=== PATIENT | male | born 1975 | race Caucasian/White ===

== ENCOUNTER 2019-07-21 18:16 | Emergency (ER) | payer SELFPAY ==
[2019-07-21 18:24] VITALS: BP 127/85; PULSE 99; RESP 18; TEMP 36.9; O2SAT 98; BMI 19.5
--- NOTE | 2019-07-21 18:35 | ED_ITS ---
Entered by Muna Corona, acting as scribe for Meliza Johnson MD HPI - Psych General: Chief Complaint: Psychiatric Symptoms Stated Complaint: hallucinations after meth use Time Seen by Provider: 07/21/19 18:35 Source: patient Mode of arrival: ambulatory Limitations: no limitations History of Present Illness: HPI Narrative: 43 yo male presents with halluci nations and voices. pt states this started several months after after using meth. pt states nothing makes this better or worse. pt denies any other symptoms at this time. Once the voices to stop. Last used meth this morning and smoked it. Denies any cellulitis or abscess from injecting in the past. Asks if he can be admitted. complaint: other (hallucinations) Onset (ago): day(s) Duration: constant History of same: Yes Relieving factors: none Exacerbating factors: none Context: recent drug abuse (Meth) Associated psychiatric symptoms: auditory hallucinations and visual hallucinations Associated symptoms: Reports auditory hallucinations and visual hallucinations Treatments prior to arrival: none Review of Systems General: Reports: 10 or more systems reviewed and unremarkable except in HPI and below Const: Denies: fever or chills Eyes: Denies: change in vision ENMT: Denies: throat pain Card: Denies: chest pain Resp: Denies: shortness of breath GI: Denies: abdominal pain, nausea, vomiting or change in bowel habits Musc: Denies: muscle weakness Skin/Breast: Denies: rash Neuro: Denies: headache Psych: Reports: visual hallucinations and auditory hallucinations Endo: Denies: excessive urination Johan/Lymph: Denies: easy bruising or easy bleeding All/Imm: Denies: hives PFSH ED PFSH: Social History Smoking and tobacco status: current every day smoker Physical Exam Const: COMMON NORMALS: no apparent distress, oriented x3, alert and well nourished GENERAL APPEARANCE: anxious HENMT: COMMON NORMALS: normocephalic and external nose normal HEAD & SCALP: normocephalic NOSE: external nose normal MOUTH: no trismus Eye: COMMON NORMALS: EOMs intact bilaterally and conjunctivae normal CONJUNCTIVA: Yes conjunctivae normal Neck/C-Spine: COMMON NORMALS: full ROM, no lymphadenopathy and supple CERVICAL SPINE: Yes cervical ROM normal Lymph: LYMPHATIC: no lymphadenopathy noted Resp: COMMON NORMALS: normal respiratory effort, no retractions, no use of accessory muscles and clear to auscultation bilaterally EFFORT & INSPECTION: Yes able to speak in complete sentences AUSCULTATION: clear to auscultation bilaterally Cardio: COMMON NORMALS: regular rate and regular rhythm RATE: regular rate RHYTHM: regular rhythm GI: COMMON NORMALS: normal to inspection, nondistended, normoactive bowel sounds, soft to palpation, non-tender and no masses INSPECTION: Yes normal to inspection AUSCULTATION: Yes normoactive bowel sounds PALPATION: Yes soft, No guarding and No rigid Back/Pelvis: OTHER: Normal range of motion Extremity: GENERAL: Yes normal exam except as noted Neuro: COMMON NORMALS: oriented x3 and CN's II-XII intact bilaterally SENSORIUM/ORIENTATION: Yes alert SPEECH: speech normal Psych: COMMON NORMALS: mental status grossly normal, cooperative and speech normal SPEECH: Yes normal speech MOOD & AFFECT: Yes anxious Skin: COMMON NORMALS: no rashes or lesions noted GENERAL SKIN EXAM: no rashes or lesions noted MDM - Psych MDM Narrative: Medical decision making narrative: 1942 asked patient about the aspirin level. He tells me that he took 6 aspirin today which were full strength at anywhere between 1 and 4 PM.. He tells me that he did not take them to try to hurt himself or to overdose but he thought that if he thinned his blood out that his drug screen for employment would be less likely to come back for meth. Unfortunately he will need a 6-hour aspirin level. He also tells me he took about the same amount of aspirin yesterday and the day before. [id number] called the patient's room after he attempted to leave twice. He is back in his room now. He tells me he is upset because he heard the housekeepers talking smack about him. I asked him if he thought may be these could be hallucinations instead of them actually talking about him. He tells me know he sure that they were saying bad things about him. Staff here states that housekeeping was in the area but was not talking at all. I believe the patient is hallucinating however he is not suicidal not homicidal and tells me that the voices have never told him to do bad things. He is alert and oriented x3 with a steady gait and is not intoxicated. Ultimately he decided to walk out of the ER. Patient disposition on this [facility] chart is left without being seen because there is no choice for elopement. But I absolutely did see this patient and he had a full medical screening exam. Lab Data: Labs: Lab Results 07/21/19 07/21/19 07/21/19 Range/Units 18:42 18:42 19:15 WBC 8.0 (4.0-10.0) 10^3/ uL RBC 4.80 (4.1-5.3) 10^6/u L Hgb 15.1 (11.7-16.6) g/dL Hct 42.9 (42.0-52.0) % MCV 89.4 (80-94) fL MCH 31.5 (28.0-34.0) pg MCHC 35.2 (30.0-36.0) g/dL RDW 11.9 L (12.1-15.1) % Plt Count 310 (130-400) 10^3/c mm MPV 10.0 (7.4-10.4) fL Neut % (Auto) 65.1 % Lymph % (Auto) 20.7 % [place] % (Auto) 11.9 % Eos % (Auto) 1.5 % Baso % (Auto) 0.5 % Neut # (Auto) 5.2 (1.8-7.7) 10^3/u L Lymph # (Auto) 1.7 (0.8-4.8) 10^3/u L [place] # (Auto) 1.0 H (0.2-0.9) 10^3/u L Eos # (Auto) 0.1 (0.0-0.8) 10^3/u L Baso # (Auto) 0.0 (0.0-0.1) 10^3/u L Nucleated RBC % (a uto) 0 % Nucleated RBCs # 0.0 /100WBC Sodium 138 (136-145) mmol/L Potassium 3.5 (3.5-5.1) mmol/L Chloride 97 L (98-107) mmol/L Carbon Dioxide 25 (22-29) mmol/L Anion Gap 19.5 H (5-19) BUN 21 H (6-20) mg/dL Creatinine 0.9 (0.7-1.2) mg/dL GFR Calculation 91.3 (90-130) mL/min Glucose 91 (65-115) mg/dL Calculated Osmolal ity 282 L (285-295) mOsm/k g Calcium 10.0 (8.5-10.5) mg/dL Total Bilirubin 0.4 (0.15-1.2) mg/dL AST 22 (0-40) U/L ALT 12 (0-41) U/L Alkaline Phosphata se 92 (40-130) IU/L Total Protein 7.7 (6.6-8.7) g/dL Albumin 4.7 (3.5-5.2) g/dL Globulin 3.0 (1.3-4.6) g/dL TSH 1.64 (0.27-4.20) uIU/ mL Salicylates 22.8 H (3-10) mg/dL Urine Opiates Scre en Negative (Negative) ng/mL Acetaminophen < 5.0 L (10-30) ug/mL Ur Barbiturates Sc reen Negative (Negative) ng/mL Ur Phencyclidine S crn Negative (Negative) ng/mL Ur Amphetamines Sc reen Positive H (Negative) ng/mL U Benzodiazepines Scrn Negative (Negative) ng/mL Urine Cocaine Scre en Negative (Negative) ng/mL U Marijuana (THC) Screen Negative (Negative) ng/mL Ethyl Alcohol < 10 (0-10) mg/dL EKG Data^: EKG 1: EKG interpretation date: 07/21/19 EKG interpretation time: 16:48 Prior EKG tracings: not available for review Interpretation: Normal sinus rhythm rate 92. Nonspecific ST changes normal AK interval. Discharge Plan Discharge Patient Disposition: Left Without Being Seen Clinical Impression: Drug-induced psychotic disorder Condition: Stable Coding Level of Care Code ED Cake Wringer for Chg Fwd Exam Comprehensive The documentation recorded by the Cj silva Bridget Annette, accurately reflects the service I personally performed and the decisions made by , Meliza Johnson MD
--- NOTE | 2019-07-21 18:36 | ECG_ITS ---
Measurements Intervals [place] Rate: 92 P: 77 FL: 148 QRS: 74 QRSD: 91 T: 66 QT: 347 QTc: 430 SINUS RHYTHM MINIMAL VOLTAGE CRITERIA FOR LVH, CONSIDER NORMAL VARIANT [MEETS CRITERIA IN ONE OF: R(aVL), S(V1), R(V5), R(V5/V6)+S(V1)] NONSPECIFIC T-WAVE ABNORMALITY No previous ECG available for comparison Electronically Signed On 07-22-2019 13:43:01 CDT by Fahad Grijalva M.D. [email or web address]
--- NOTE | 2019-07-21 18:52 | PC.NURSE ---
Patient denies SI and HI, no one on one sitter issued at this time.
[2019-07-21 18:54] LABS: Basophils % 0.5 %; Eosinophils # 0.1 10^3/uL (0.0-0.8); Eosinophils % 1.5 %; Hematocrit 42.9 % (42.0-52.0); Hemoglobin 15.1 g/dL (11.7-16.6); Lymphocytes # 1.7 10^3/uL (0.8-4.8); Lymphocytes % 20.7 %; Mean Corpuscular HGB Conc 35.2 g/dL (30.0-36.0); Mean Corpuscular Hemoglobin 31.5 pg (28.0-34.0); Mean Corpuscular Volume 89.4 fL (80-94); Monocytes % 11.9 %; Neutrophils # 5.2 10^3/uL (1.8-7.7); Neutrophils % 65.1 %; Nucleated Red Blood Cells % 0 %; Platelet Count 310 10^3/cmm (130-400); Red Cell Distribution Width 11.9 % (12.1-15.1)
[2019-07-21] MEDS: nicotine 21 mg Patch 1 PATCH TRANSDERMA (19:11)
[2019-07-21 19:19] LABS: Acetaminophen < 5.0 ug/mL (10-30); Alanine Aminotransferase 12 U/L (0-41); Albumin Level 4.7 g/dL (3.5-5.2); Alcohol Level < 10 mg/dL (0-10); Alkaline Phosphatase 92 IU/L (40-130); Anion Gap 19.5 (5-19); Aspartate Amino Transferase 22 U/L (0-40); Blood Urea Nitrogen 21 mg/dL (6-20); Carbon Dioxide 25 mmol/L (22-29); Chloride 97 mmol/L (98-107); Glomerular Filtration Rate 91.3 mL/min (90-130); Glucose 91 mg/dL (65-115); Osmolality Calculated 282 mOsm/kg (285-295); Potassium 3.5 mmol/L (3.5-5.1); Salicylate 22.8 mg/dL (3-10); Sodium 138 mmol/L (136-145); Thyroid Stimulating Hormone 1.64 uIU/mL (0.27-4.20); Total Bilirubin 0.4 mg/dL (0.15-1.2); Total Protein 7.7 g/dL (6.6-8.7)
[2019-07-21 19:41] LABS: Amphetamines Screen Urine Positive (Negative); Barbiturates Screen Urine Negative (Negative); Benzodiazepines Screen Urine Negative (Negative); Cocaine Screen Urine Negative (Negative); Opiate Screen Urine Negative (Negative); PCP Screen Urine Negative (Negative); THC Screen Urine Negative (Negative)
[2019-07-21 19:49] VITALS: BP 116/83; PULSE 114; RESP 18; TEMP 36.7; O2SAT 97
[2019-07-21 20:27] VITALS: BP 130/76; PULSE 108; RESP 15; O2SAT 97
[2019-07-21 20:31] VITALS: BP 117/77
[2019-07-21 21:36] VITALS: BP 111/80; PULSE 95; RESP 14; O2SAT 98
[2019-07-21] MEDS: LORazepam 1 mg Tablet PO (21:51)
--- NOTE | 2019-07-21 22:06 | PC.NURSE ---
Patient was having auditory and visual hallucinations and stated to nurse and doctor that he believed people were talking about him and that he was not staying in the hospital. Patient was having hallucinations about who was by his room, patient was reassured by the nurse that the only interest was to get patient the help he wanted and that he was safe in the hospital. Patient went back into his room after walking down the hallway but then after conversing with the HCP and nurse the patient walked out of the room and left AMA.
== END 2019-07-21 22:09 | disposition left against medical advice (07) ==
PROVIDERS: Emergency Provider Emergency Medicine
DX: F19.159 Other psychoactive substance abuse with psychoactive substance-induced psychotic disorder, unspecified (principal); F17.200 Nicotine dependence, unspecified, uncomplicated; Z53.21 Procedure and treatment not carried out due to patient leaving prior to being seen by health care provider
CPT/HCPCS: 12345; 80053; 80306; 80307; 84443; 85025; 93005; 99284

== ENCOUNTER 2019-07-23 09:11 | Inpatient (IN) | payer SELFPAY ==
[2019-07-23 09:12] VITALS: BP 126/79; PULSE 107; RESP 16; TEMP 36.6; O2SAT 98; BMI 22.0
--- NOTE | 2019-07-23 09:12 | ED_ITS ---
Entered by Linda Abad, acting as scribe for Han Bowden DO HPI - Psych General: Chief Complaint: Psychiatric Symptoms Stated Complaint: SI Time Seen by Provider: 07/23/19 09:11 Source: patient Mode of arrival: ambulatory Limitations: no limitations History of Present Illness: HPI Narrative: 43 yo Male presents to ED with complaint of suicidal ideation and auditory hallucinations. Pt states that he has been having conversations with people who aren't there. Pt states that he has also been having visual hallucinations. Pt states that he started having suicidal ideation yesterday. Pt states that he has attempted suicide last year by attempting an overdose. Pt states that he does not have any chronic medical conditions. Pt states that he smokes cigarettes and uses methamphetamines. Pt states that he last used methamphetamines on Wednesday. Pt states that he has not had any alcohol in a while. Pt states that he wants to come in to the [facility]PU to get help and get put on some medications. MD complaint: suicidal ideation Onset (ago): day(s) Duration: constant History of same: Yes Relieving factors: none Exacerbating factors: drug use Context: recent drug abuse and not taking psychiatric medications Associated psychiatric symptoms: suicidal ideation, auditory hallucinations and visual hallucinations Associated symptoms: Reports auditory hallucinations, visual hallucinations and suicidal ideation; Deny homicidal ideation Treatments prior to arrival: none If self harm: admits thoughts of self harm and has plan Details of plan: Plans to attempt overdose Review of Systems General: Reports: 10 or more systems reviewed and unremarkable except in HPI and below Psych: Reports: visual hallucinations, auditory hallucinations and suicidal ideation; Denies: homicidal ideation [facility] ED PFSH: Social History (Updated 07/23/19 @ 09:25 by Linda Abad) Smoking and tobacco status: current every day smoker Substance/Drug Use: current Substance/Drug use type: Methamphetamine Last substance use date: 07/21/19 Physical Exam Const: COMMON NORMALS: no apparent distress, average body habitus, oriented x3, no limitations, healthy appearing, alert and well nourished HENMT: COMMON NORMALS: normocephalic, head/scalp atraumatic, hearing grossly normal bilaterally, external ears normal, EAC's normal, TM's normal bilaterally, external nose normal, nasal mucous membranes and turbinates normal, moist oral mucous membranes, oropharynx normal, dentition normal and gingiva normal HEAD & SCALP: normocephalic and atraumatic NOSE: external nose normal and nasal mucous membranes and turbinates normal EXTERNAL EAR: Yes external ears normal EXTERNAL AUDITORY CANAL: EAC's normal TYMPANIC MEMBRANE: TM's normal bilaterally Eye: COMMON NORMALS: PERRL, EOMs intact bilaterally, conjunctivae normal, no scleral icterus, no papilledema, normal visual swain by confrontation and fundi normal bilaterally CONJUNCTIVA: Yes conjunctivae normal PUPIL: Yes PERRL DIRECT OPHTHALMOSCOPY: Yes no papilledema and Yes fundi normal bilaterally Neck/C-Spine: COMMON NORMALS: full ROM, no lymphadenopathy, supple, no meningeal signs, no JVD, thyroid normal and no carotid bruits THYROID: thyroid normal Chest: COMMONS NORMALS: inspection of chest normal and palpation of chest normal Resp: COMMON NORMALS: normal respiratory effort, no retractions, no use of accessory muscles, clear to auscultation bilaterally and percussion normal AUSCULTATION: clear to auscultation bilaterally PERCUSSION: percussion normal Cardio: COMMON NORMALS: no JVD, regular rate, regular rhythm, S1 normal heart sound, S2 normal heart sound, no gallops, no clicks, no murmurs, no rub and peripheral pulses 2+ throughout RATE: regular rate RHYTHM: regular rhythm HEART SOUNDS: S1 normal and S2 normal PERIPHERAL PULSES: pulses 2+ throughout GI: COMMON NORMALS: normal to inspection, nondistended, normoactive bowel sounds, soft to palpation, non-tender, no hepatosplenomegaly, no masses and no bruits PALPATION: Yes soft and Yes no hepatosplenomegaly : COMMON NORMALS: Yes no CVA tenderness BLADDER/KIDNEY EXAM: Yes no CVA tenderness Back/Pelvis: COMMON NORMALS: no CVA tenderness, thoracic and lumbar spine normal to inspection, no thoracic nor lumbar tenderness, thoraco-lumbar ROM normal and straight leg raise negative bilaterally Extremity: COMMON NORMALS: normal to inspection, full ROM, normal capillary refill, no joint enlargement, no clubbing, cyanosis or edema, no calf tenderness and no pedal edema Neuro: COMMON NORMALS: oriented x3 SENSORIUM/ORIENTATION: Yes alert MENINGEAL SIGNS: Yes no meningeal signs Skin: COMMON NORMALS: no rashes or lesions noted, no wounds, skin turgor normal, no jaundice, no petechiae and no mottling GENERAL SKIN EXAM: no rashes or lesions noted and turgor normal MDM - Psych Lab Data: Labs: Lab Results 07/23/19 07/23/19 07/23/19 Range/Units 09:27 09:27 09:35 WBC 6.5 (4.0-10.0) 10^3/ uL RBC 4.90 (4.1-5.3) 10^6/u L Hgb 15.2 (11.7-16.6) g/dL Hct 43.2 (42.0-52.0) % MCV 88.2 (80-94) fL MCH 31.0 (28.0-34.0) pg MCHC 35.2 (30.0-36.0) g/dL RDW 11.9 L (12.1-15.1) % Plt Count 329 (130-400) 10^3/c mm MPV 10.4 (7.4-10.4) fL Neut % (Auto) 77.2 % Lymph % (Auto) 16.0 % [place] % (Auto) 5.7 % Eos % (Auto) 0.3 % Baso % (Auto) 0.6 % Neut # (Auto) 5.0 (1.8-7.7) 10^3/u L Lymph # (Auto) 1.0 (0.8-4.8) 10^3/u L [place] # (Auto) 0.4 (0.2-0.9) 10^3/u L Eos # (Auto) 0.0 (0.0-0.8) 10^3/u L Baso # (Auto) 0.0 (0.0-0.1) 10^3/u L Nucleated RBC % (a uto) 0 % Nucleated RBCs # 0.0 /100WBC Sodium (136-145) mmol/L Potassium (3.5-5.1) mmol/L Chloride (98-107) mmol/L Carbon Dioxide (22-29) mmol/L Anion Gap (5-19) BUN (6-20) mg/dL Creatinine (0.7-1.2) mg/dL GFR Calculation (90-130) mL/min Glucose (65-115) mg/dL Calculated Osmolal ity (285-295) mOsm/k g Calcium (8.5-10.5) mg/dL Total Bilirubin (0.15-1.2) mg/dL AST (0-40) U/L ALT (0-41) U/L Alkaline Phosphata se (40-130) IU/L Total Protein (6.6-8.7) g/dL Albumin (3.5-5.2) g/dL Globulin (1.3-4.6) g/dL TSH (0.27-4.20) uIU/ mL Urine Color Straw (Yellow) Urine Appearance Clear (CLEAR) Urine pH 5 (5-7) Ur Specific Gravit y 1.030 (1.005-1.030) Urine Protein Neg (Negative) Urine Glucose (UA) Norm (Normal) Urine Ketones 2+ H (Negative) Urine Blood Neg (Negative) Urine Nitrate Negative (Negative) Urine Bilirubin 1+ H (NEGATIVE) Urine Urobilinogen 1 H (Negative) mg/dL Ur Leukocyte Nohemy ase Negative (Negative) Salicylates (3-10) mg/dL Urine Opiates Scre en Negative (Negative) ng/mL Acetaminophen (10-30) ug/mL Ur Barbiturates Sc reen Negative (Negative) ng/mL Ur Phencyclidine S crn Negative (Negative) ng/mL Ur Amphetamines Sc reen Positive H (Negative) ng/mL U Benzodiazepines Scrn Positive H (Negative) ng/mL Urine Cocaine Scre en Negative (Negative) ng/mL U Marijuana (THC) Screen Negative (Negative) ng/mL Ethyl Alcohol (0-10) mg/dL 07/23/19 Range/Units 09:35 WBC (4.0-10.0) 10^3/ uL RBC (4.1-5.3) 10^6/u L Hgb (11.7-16.6) g/dL Hct (42.0-52.0) % MCV (80-94) fL MCH (28.0-34.0) pg MCHC (30.0-36.0) g/dL RDW (12.1-15.1) % Plt Count (130-400) 10^3/c mm MPV (7.4-10.4) fL Neut % (Auto) % Lymph % (Auto) % Pepin % (Auto) % Eos % (Auto) % Baso % (Auto) % Neut # (Auto) (1.8-7.7) 10^3/u L Lymph # (Auto) (0.8-4.8) 10^3/u L [place] # (Auto) (0.2-0.9) 10^3/u L Eos # (Auto) (0.0-0.8) 10^3/u L Baso # (Auto) (0.0-0.1) 10^3/u L Nucleated RBC % (a uto) % Nucleated RBCs # /100WBC Sodium 139 (136-145) mmol/L Potassium 3.3 L (3.5-5.1) mmol/L Chloride 96 L (98-107) mmol/L Carbon Dioxide 32 H (22-29) mmol/L Anion Gap 14.3 (5-19) BUN 17 (6-20) mg/dL Creatinine 0.8 (0.7-1.2) mg/dL GFR Calculation 104.5 (90-130) mL/min Glucose 125 H (65-115) mg/dL Calculated Osmolal ity 286 (285-295) mOsm/k g Calcium 10.1 (8.5-10.5) mg/dL Total Bilirubin 0.9 (0.15-1.2) mg/dL AST 42 H (0-40) U/L ALT 24 (0-41) U/L Alkaline Phosphata se 107 (40-130) IU/L Total Protein 8.1 (6.6-8.7) g/dL Albumin 4.8 (3.5-5.2) g/dL Globulin 3.3 (1.3-4.6) g/dL TSH 0.57 (0.27-4.20) uIU/ mL Urine Color (Yellow) Urine Appearance (CLEAR) Urine pH (5-7) Ur Specific Gravit y (1.005-1.030) Urine Protein (Negative) Urine Glucose (UA) (Normal) Urine Ketones (Negative) Urine Blood (Negative) Urine Nitrate (Negative) Urine Bilirubin (NEGATIVE) Urine Urobilinogen (Negative) mg/dL Ur Leukocyte Nohemy ase (Negative) Salicylates 1.0 L (3-10) mg/dL Urine Opiates Scre en (Negative) ng/mL Acetaminophen < 5.0 L (10-30) ug/mL Ur Barbiturates Sc reen (Negative) ng/mL Ur Phencyclidine S crn (Negative) ng/mL Ur Amphetamines Sc reen (Negative) ng/mL U Benzodiazepines Scrn (Negative) ng/mL Urine Cocaine Scre en (Negative) ng/mL U Marijuana (THC) Screen (Negative) ng/mL Ethyl Alcohol < 10 (0-10) mg/dL Discharge Plan Discharge Patient Disposition: Admitted As Inpatient Admit Provider: Devan Hartman Clinical Impression: Suicidal ideation, Acute psychosis Depression Qualifiers: Depression Type: major depressive disorder Major depression recurrence: recurrent Active/Remission status: currently active Major depression episode severity: severe Psychotic features: with psychotic features Qualified Code(s): F33.3 - Major depressive disorder, recurrent, severe with psychotic symptoms Drug-induced psychotic disorder Qualifiers: Complication of substance-induced condition: with hallucinations Qualified Code(s): F19.951 - Other psychoactive substance use, unspecified with psychoactive substance-induced psychotic disorder with hallucinations Condition: Fair Coding Level of Care Code ED It Consultant for [facility] Fwd Exam Comprehensive The documentation recorded by the Jenniffer silva Carmen, accurately reflects the service I personally performed and the decisions made by , Han Bowden DO Jul 23, 2019 09:11
[2019-07-23] MEDS: LORazepam 1 mg Tablet PO (09:30)
[2019-07-23 09:46] LABS: Basophils % 0.6 %; Eosinophils % 0.3 %; Hematocrit 43.2 % (42.0-52.0); Hemoglobin 15.2 g/dL (11.7-16.6); Mean Corpuscular HGB Conc 35.2 g/dL (30.0-36.0); Mean Corpuscular Volume 88.2 fL (80-94); Mean Platelet Volume 10.4 fL (7.4-10.4); Monocytes # 0.4 10^3/uL (0.2-0.9); Monocytes % 5.7 %; Neutrophils % 77.2 %; Nucleated Red Blood Cells % 0 %; Platelet Count 329 10^3/cmm (130-400); Red Cell Distribution Width 11.9 % (12.1-15.1); White Blood Count 6.5 10^3/uL (4.0-10.0)
[2019-07-23 09:47] LABS: Add Urine Microscopic? NO
[2019-07-23 09:52] LABS: Bilirubin Urine 1+ (NEGATIVE); Blood Urine Neg (Negative); Glucose Urine UA Norm (Normal); Ketones Urine 2+ (Negative); Leukocyte Esterase Urine Negative (Negative); Nitrate Urine Negative (Negative); Protein Urine Neg (Negative); Urine Appearance Clear (CLEAR); Urine Color Straw (Yellow); Urobilinogen Urine 1 mg/dL (Negative); pH Urine 5 (5-7)
[2019-07-23 09:59] LABS: Amphetamines Screen Urine Positive (Negative); Barbiturates Screen Urine Negative (Negative); Benzodiazepines Screen Urine Positive (Negative); Cocaine Screen Urine Negative (Negative); Opiate Screen Urine Negative (Negative); PCP Screen Urine Negative (Negative); THC Screen Urine Negative (Negative)
[2019-07-23 10:13] LABS: Alanine Aminotransferase 24 U/L (0-41); Albumin Level 4.8 g/dL (3.5-5.2); Alkaline Phosphatase 107 IU/L (40-130); Anion Gap 14.3 (5-19); Aspartate Amino Transferase 42 U/L (0-40); Blood Urea Nitrogen 17 mg/dL (6-20); Calcium 10.1 mg/dL (8.5-10.5); Carbon Dioxide 32 mmol/L (22-29); Chloride 96 mmol/L (98-107); Globulin 3.3 g/dL (1.3-4.6); Glomerular Filtration Rate 104.5 mL/min (90-130); Glucose 125 mg/dL (65-115); Osmolality Calculated 286 mOsm/kg (285-295); Potassium 3.3 mmol/L (3.5-5.1); Sodium 139 mmol/L (136-145); Thyroid Stimulating Hormone 0.57 uIU/mL (0.27-4.20); Total Bilirubin 0.9 mg/dL (0.15-1.2); Total Protein 8.1 g/dL (6.6-8.7)
[2019-07-23 10:23] LABS: Acetaminophen < 5.0 ug/mL (10-30); Alcohol Level < 10 mg/dL (0-10)
[2019-07-23 11:02] VITALS: BP 124/89; PULSE 72; RESP 18
[2019-07-23 12:14] VITALS: BP 120/63; PULSE 78; RESP 16; O2SAT 98
[2019-07-23] MEDS: nicotine 21 mg Patch 1 PATCH TRANSDERMA (13:23)
[2019-07-23 14:00] VITALS: BP 120/63; PULSE 78; RESP 16
--- NOTE | 2019-07-23 18:06 | PM.NHP ---
Providers/Chief Complaint Admitting Physician: Devan Hartman Referral Source: [facility] [place] Chief Complaint: SI HPI N[facility] History of Present Illness Marty Islas Jr is a 43 year old male with suicidal ideation ( I was going to shoot myself. ) and auditory/visual hallucinations with conversations with people who aren't there. The patient said he quit methamphetamine again the day before yesterday and started having suicidal ideation yesterday. Patient had attempted suicide last year by overdose. He has no chronic medical conditions. He smokes cigarettes and uses methamphetamines. He has not had any alcohol in a about a month. He seeks admission to the NPU to get help and get on some medications. Review of Systems Narrative: General: Reports: 10 or more systems reviewed and unremarkable except in HPI and below Psych: Reports: visual/auditory hallucinations and suicidal ideation; Denies: homicidal ideation Meds NPU Home Medications Medication Instructions Recorded Confirmed Type No Known Home Medications 07/23/19 07/23/19 History Allergies Allergy/AdvReac Type Severity Reaction Status Date / Time Penicillins Allergy Unknown Verified 07/23/19 09:22 [facility] N[facility] PFSH: Medical History (Updated 07/23/19 @ 20:15 by Devan Hartman) Polysubstance dependence in early, early partial, sustained full, or sustained partial remission Family History (Updated 07/23/19 @ 20:10 by Devan Hartman) Family/Other Psychiatric illness His dad's brothers (2) had problems with methamphetamine also. Social History (Updated 07/23/19 @ 09:25 by Linda Abad) Smoking and tobacco status: current every day smoker Substance/Drug Use: current Substance/Drug use type: Methamphetamine Last substance use date: 07/21/19 Other Psychiatric History: Other Psychiatric History: He had depression 2 years ago and was hospitalized here after attempting an overdose. Home Safety: Firearms in home: Yes Firearms unloaded and locked?: No Mental Status Exam MSE Comments: 43-year-old male who appears older than his stated age. Somewhat bedraggled. Mood is very sad and affect is quite flat. Thought processes are integrated and free of any racing, blocking or looseness of association. There is no evidence of psychosis, such as but not limited to hallucinations, delusions or ideas of reference. Speech is very quiet and soft and he hasn't much to say. There is no dysarthria and aprosody or pressure. Cognitive functions appear to be within the norm although not formally tested. Insight and judgment are limited. The patient denies suicidal or homicidal ideation, plan or intent. Vitals/I&O/Wt Last Vital Signs Temp 97.9 F 07/23/19 09:12 Pulse 78 07/23/19 14:00 Resp 16 07/23/19 14:00 BP 120/63 07/23/19 14:00 Pulse Ox 98 07/23/19 12:14 Weight last 48 hrs Weight 145 lb Data NPU : 07/23/19 09:35 07/23/19 09:35 A&P Assessment and plan (1) Major depressive disorder, recurrent episode with melancholic features: Patient needs to have pharmacotherapy. Contrary to the ED physician's impression, he is never had medicine for depression. He has heard that Prozac makes to do bad things. In light of the fact that he has no complements and it will start him on citalopram 10 mg daily, with titration by my successor. He will also be involved in milieu and incur a review of his participation in rehab with consideration of modification to a more intensive program. Aftercare will also have to be organized. Status: Acute Code(s): F33.9 - Major depressive disorder, recurrent, unspecified (2) Polysubstance dependence in early, early partial, sustained full, or sustained partial remission: This patient has a lifetime of drug abuse and he is depressed. Both of these need to be dealt with as described above. Status: Acute Code(s): F19.21 - Other psychoactive substance dependence, in remission Involuntary Hold Information 96 Hour Hold: 96 Hour Involuntary Admission: No Attestations NPU Medical Necessity Statement*: I anticipate 5-7 midnights. Time Spent in Patient Care: Greater than 35 minutes (>than 50% of time spent in counselling and/or direct pt care on unit). Coding Level of Care Code Acute Temperature Logging Operator for Gaudencio Ng Diagnoses Major depressive disorder, recurrent episode with melancholic features F33.9 Polysubstance dependence in early, early partial, sustained full, or sustained partial remission F19.21
[2019-07-23 22:00] VITALS: BP 107/68; PULSE 71; RESP 14; TEMP 36.7; O2SAT 98
[2019-07-24 06:00] VITALS: BP 101/49; PULSE 66; RESP 15; TEMP 36.4; O2SAT 99
--- NOTE | 2019-07-24 13:14 | PM.NPN ---
Subjective NPU Subjective: Interval history: patient reports that over the past several months, he has been having a lot of psychosocial problems. He reports significant problems with depression symptoms. He reports variable sleep. He has poor hedonic capacity. He is irritable. He finds himself not being able to think clearly and questioning whether his thoughts have to do with reality or not. Hopeless. He feels overwhelmed. He has suicidal thoughts but has not had an intent or plan. He also reports that he has made a lot of poor judgment. He is convinced that he is going to halfway for the next 5 years even though he is yet to be arrested. 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 He attends an outpatient rehabilitation program for his history of methamphetamine use. He is dismayed that he began using again. He does not feel the program is very helpful for him because he is so much older than the other participants. Manic symptoms other than when he is using methamphetamine. Absence of auditory or visual hallucinations. Laboratory Tests 07/23/19 07/23/19 09:27 09:35 Ur Barbiturates Sc reen Negative Ur Phencyclidine S crn Negative Ur Amphetamines Sc reen Positive H U Benzodiazepines Scrn Positive H Urine Cocaine Scre en Negative U Marijuana (THC) Screen Negative Ethyl Alcohol < 10 Mental Status Exam MSE Comments: Mental Status Exam: Appearance: hygiene is fair; no gross neurological deficits., gait is unremarkable; AIMS=0 Speech: Speech is of normal rate and rhythm and easily understood. Thought processes: Thought processes are abstract. Judgment is adequate for safety. Associations: intact Psychotic processes: There is no indication of guarding or paranoia. There is no attention to the internal stimuli. Auditory and visual hallucinations are denied. Judgment: Insight is fair. Problem solving skills are adequate for safety. Orientation: The patient is oriented to person, place time and situation. Memory: no deficits noted in immediate, intermediate, or remote spheres. Attention: The patient is alert and interpersonally engaged. Language: Verbalizations are coherent. Fund of knowledge: Fund of knowledge is adequate. Affect/Mood: Affect is consistent with a depressed mood. positive suicidal ideationbut without any intent or plan. Affective range is constricted Psychosis: perception unimpaired except through cognitive distortion; reality testing challenged butintact. Cognition: Patient Appearance: Disheveled/Poor Hygiene Level of Consciousness: Awake, Alert, Appropriate, Follows Commands and Restless Patient Cognition Impaired: No Ability to Follow Directions: Excellent Patient Orientation (long list): Person, Place and Time Comprehension Ability: No Impairment Hallucination Type: Auditory and Visual Delusion Description: Not Present Thought Process: Appropriate Affect: Affect Description: Appropriate and Calm Depressive Symptoms: Changes in Appetite, Difficulty Concentrating, Difficulty Making Decisions, Insomnia, Increased Anxiety, Loss of Interest in Activities, Recurrent Thoughts of or Suicide and Unhappiness Behavior: Patient Behavior: Appropriate and Withdrawn Speech Pattern: Appropriate Vitals/I&O/Wt Last Vital Signs Temp 97.6 F 07/24/19 06:00 Pulse 66 07/24/19 06:00 Resp 15 07/24/19 06:00 BP 101/49 07/24/19 06:00 Pulse Ox 99 07/24/19 06:00 Weight last 48 hrs Weight 65.771 kg Data NPU : 07/23/19 09:35 07/23/19 09:35 A&P Assessment and plan (1) Major depressive disorder, recurrent episode with melancholic features: medication management of symptoms of depression was discussed and plan was agreed upon. He agreed to initiate Celexa 10 mg daily for symptoms of depression. Abilify trial will be provided at 2 mg daily to assist with clarity of thought and reality testing. Doxepin 50 mg at night will be provided on an as-needed basis for sleep. Potential benefits and side effects of this medication were discussed and its use was agreed upon by the patient. Contingency plan for unwanted or unexpected side effects is discontinuation. we also discussed the degree of stress that is being added to him by staying here in the hospital. His appointment is threatened. As he is no longer an imminent risk to self or others, he will be discharged if these medications are tolerated so that he not lose his job. Status: Acute Code(s): F33.9 - Major depressive disorder, recurrent, unspecified (2) Polysubstance dependence in early, early partial, sustained full, or sustained partial remission: he was advised to discuss with family welfare social work professor availability of othertreatment modalities available in the community. Status: Acute Code(s): F19.21 - Other psychoactive substance dependence, in remission Involuntary Hold Information 96 Hour Hold: 96 Hour Involuntary Admission: No Attestations NPU Medical Necessity Statement*: he remained in the hospital 1-2 more nights and then be reassessed Re: Medication tolerability and symptom severity.. Plan as above. 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
[2019-07-24 14:00] VITALS: BP 103/66; PULSE 79; RESP 18; TEMP 36.7; O2SAT 97
[2019-07-24] MEDS: ARIPiprazole 2 mg Tablet PO (15:08)
[2019-07-24] MEDS: citalopram 20 mg Tablet PO (15:09)
[2019-07-24] MEDS: nicotine 21 mg Patch 1 PATCH TRANSDERMA (17:27)
[2019-07-24 20:22] VITALS: BP 106/55; PULSE 97; RESP 18; TEMP 36.8; O2SAT 96
[2019-07-24] MEDS: doxepin 50 mg Capsule PO (20:46)
[2019-07-25 06:00] VITALS: BP 89/53; PULSE 71; RESP 19; TEMP 36.9; O2SAT 97
[2019-07-25] MEDS: citalopram 20 mg Tablet PO (08:14)
[2019-07-25] MEDS: ARIPiprazole 2 mg Tablet PO (08:14)
[2019-07-25 11:58] VITALS: BP 89/53; PULSE 71; RESP 19; TEMP 36.9; O2SAT 97
--- NOTE | 2019-07-25 12:26 | PM.NDC ---
Diagnoses at Discharge Discharge Diagnosis (1) Major depressive disorder, recurrent episode with melancholic features: Status: Acute (2) Polysubstance dependence in early, early partial, sustained full, or sustained partial remission: Status: Acute Reason for Visit Reason for Visit: Reason For Visit: SI Hospital Course Discharge Summary Marty Islas Jr is a 43 year old male with suicidal ideation ( I was going to shoot myself. ) and auditory/visual hallucinations with conversations with people who aren't there. The patient said he quit methamphetamine again the day before yesterday and started having suicidal ideation yesterday. Patient had attempted suicide last year by overdose. He has no chronic medical conditions. He smokes cigarettes and uses methamphetamines. He has not had any alcohol in a about a month. He seeks admission to the NPU to get help and get on some medications. (1) Major depressive disorder, recurrent episode with melancholic features: Patient needs to have pharmacotherapy. Contrary to the ED physician's impression, he is never had medicine for depression. He has heard that Prozac makes to do bad things. In light of the fact that he has no complements and it will start him on citalopram 10 mg daily, with titration by my successor. He will also be involved in milieu and incur a review of his participation in rehab with consideration of modification to a more intensive program. Aftercare will also have to be organized. Status: Acute Code(s): F33.9 - Major depressive disorder, recurrent, unspecified (2) Polysubstance dependence in early, early partial, sustained full, or sustained partial remission: This patient has a lifetime of drug abuse and he is depressed. Both of these need to be dealt with as described above. Status: Acute Code(s): F19.21 - Other psychoactive substance dependence, in remission HD#2: Interval history: patient reports that over the past several months, he has been having a lot of psychosocial problems. He reports significant problems with depression symptoms. He reports variable sleep. He has poor hedonic capacity. He is irritable. He finds himself not being able to think clearly and questioning whether his thoughts have to do with reality or not. Hopeless. He feels overwhelmed. He has suicidal thoughts but has not had an intent or plan. He also reports that he has made a lot of poor judgment. He is convinced that he is going to detention for the next 5 years even though he is yet to be arrested. 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 He attends an outpatient rehabilitation program for his history of methamphetamine use. He is dismayed that he began using again. He does not feel the program is very helpful for him because he is so much older than the other participants. Manic symptoms other than when he is using methamphetamine. Absence of auditory or visual hallucinations. Plan: initiated Celexa 20 mg daily, Abilify 2 mg at bedtime and doxepin 50 mg at bedtime for sleep. Well tolerated. Involuntary Hold Information 96 Hour Hold: 96 Hour Involuntary Admission: No Mental Status Exam MSE Comments: Discharge Mental Status Exam: Appearance: hygiene is good; no gross neurological deficits., gait is unremarkable; AIMS=0 Speech: Speech is of normal rate and rhythm and easily understood. Thought processes: Thought processes are abstract. Judgment is adequate for safety. Associations: intact Psychotic processes: There is no indication of guarding or paranoia. There is no attention to the internal stimuli. Auditory and visual hallucinations are denied. Judgment: Insight is fair. Problem solving skills are adequate for safety. Orientation: The patient is oriented to person, place time and situation. Memory: no deficits noted in immediate, intermediate, or remote spheres. Attention: The patient is alert and interpersonally engaged. Language: Verbalizations are coherent. Fund of knowledge: Fund of knowledge is adequate. Affect/Mood: Affect is consistent with a euthymic mood. denied suicidal ideation Affective range is appropriate. Psychosis: perception unimpaired except through cognitive distortion; reality testing intact. Discharge Data Vitals: Last Vital Signs Temp 98.4 F 07/25/19 11:58 Pulse 71 07/25/19 11:58 Resp 19 H 07/25/19 11:58 BP 89/53 07/25/19 11:58 Pulse Ox 97 07/25/19 11:58 Discharge Plan Discharge Patient Disposition: Home, Self-Care Condition: Fair Prescriptions: New doxepin 50 mg Capsule 50 mg PO BEDTIME Qty: 30 RF: 3 citalopram 20 mg Tablet 20 mg PO DAILY Qty: 30 RF: 3 aripiprazole 2 mg Tablet 2 mg PO BEDTIME 30 Days Qty: 30 RF: 3 No Action No Known Home Medications RF: 0 Discharge Orders: Discharge Order (Routine); Ordered 07/25/19 Ordered By: Vickey Beltre Discharge Diet: Usual diet Discharge Activity: Increase activity as tolerated Patient Instructions: Doxepin (By mouth), Citalopram (By mouth), Aripiprazole (By mouth) Activity Restrictions/Additional Instructions: Continue your outpatient treatment at [facility] [address] [place] [address] Go to [facility] as soon as possible so that you can make sure you can get appointment for follow-up as soon as possible. [facility] ([facility]) [address]. [facility] [address] [place] [address] walk-in hours: 7:30 a.m.-2:30 p.m. Wednesday through Wednesday. Discharge Attestations NPU Time Spent in Discharge Care*: greater than 30 min Coding Level of Care Code Acute Asian Studies Program Chair for [facility] Fwd Diagnoses Major depressive disorder, recurrent episode with melancholic features F33.9 Polysubstance dependence in early, early partial, sustained full, or sustained partial remission F19.21
== END 2019-07-25 12:40 | disposition home or self-care (01) | DRG 885 ==
LOC: ER 11:02 → NP 11:11
PROVIDERS: Emergency Provider Family Medicine; Visit Provider Psychiatry & Neurology Psychiatry
DX: F33.3 Major depressive disorder, recurrent, severe with psychotic symptoms (principal); R45.851 Suicidal ideations; F17.210 Nicotine dependence, cigarettes, uncomplicated; Z91.5 Personal history of self-harm; F15.21 Other stimulant dependence, in remission
CPT/HCPCS: 12345; 36415; 80053; 80306; 80307; 81003; 84443; 85025; 90471; 90686; 99284

== ENCOUNTER 2019-08-02 19:36 | Inpatient (IN) | payer SELFPAY ==
--- NOTE | 2019-08-02 19:45 | ED_ITS ---
Entered by Trish Jeffries, acting as scribe for Jeremy Mercer MD HPI - Psych General: Chief Complaint: Psychiatric Symptoms Stated Complaint: mhe Time Seen by Provider: 08/02/19 19:45 Source: patient Mode of arrival: ambulatory Limitations: no limitations History of Present Illness: HPI Narrative: 43 yo m came to the er pov for a mental health evaluation. Pt said that he is si and having thought of self harming himself. Pt said that he was out of our NPU unit a week ago. Pt does drink ocassionally and used meth last wednesday. Pt said that he is out of his medication and at his breaking point. Patient does have a plan of shooting himself in his told the nurses that he has a gun plan and she himself in the head complaint: suicidal ideation Onset (ago): day(s) (today) History of same: Yes Relieving factors: none and medication Context: recent drug abuse (last Wednesday) Associated psychiatric symptoms: depression and suicidal ideation Associated symptoms: Reports suicidal ideation Treatments prior to arrival: none Details of plan: Pt does not have a plan at this time. Review of Systems General: Reports: other (negative unless marked) Const: Denies: fever, chills, body aches or change in appetite Eyes: Denies: blurry vision or eye discomfort ENMT: Denies: throat pain or dental pain Card: Denies: chest pain Resp: Denies: shortness of breath GI: Denies: abdominal pain, nausea, vomiting or diarrhea : Denies: painful urination Musc: Denies: neck pain or back pain Skin/Breast: Denies: rash Neuro: Denies: headache Psych: Reports: suicidal ideation Johan/Lymph: Denies: easy bruising All/Imm: Denies: hives PFSH ED PFSH: Medical History (Updated 08/02/19 @ 21:52 by Jeremy Mercer MD) Polysubstance dependence in early, early partial, sustained full, or sustained partial remission Family History (System 07/25/19 @ 15:45 by Funmilayo Chacon) Family/Other Psychiatric illness His dad's brothers (2) had problems with methamphetamine also. Social History (System 07/25/19 @ 15:45 by Funmilayo Chacon) Smoking and tobacco status: current every day smoker Last substance use date: 07/21/19 Physical Exam Const: COMMON NORMALS: no apparent distress, oriented x3 and healthy appearing HENMT: COMMON NORMALS: normocephalic and head/scalp atraumatic HEAD & SCALP: normocephalic and atraumatic Eye: COMMON NORMALS: PERRL and EOMs intact bilaterally PUPIL: Yes PERRL Neck/C-Spine: COMMON NORMALS: full ROM and supple Chest: COMMONS NORMALS: inspection of chest normal and palpation of chest normal Resp: COMMON NORMALS: normal respiratory effort, no retractions, no use of accessory muscles and clear to auscultation bilaterally AUSCULTATION: clear to auscultation bilaterally Cardio: COMMON NORMALS: regular rate, regular rhythm and no murmurs RATE: regular rate RHYTHM: regular rhythm GI: COMMON NORMALS: normal to inspection, nondistended, normoactive bowel sounds, soft to palpation, non-tender and no masses PALPATION: Yes soft Extremity: COMMON NORMALS: normal to inspection and full ROM Neuro: COMMON NORMALS: oriented x3, moves all extremities and no focal motor deficits Psych: COMMON NORMALS: mental status grossly normal and cooperative THOUGHT CONTENT: Yes suicidality Skin: COMMON NORMALS: no rashes or lesions noted and no wounds GENERAL SKIN EXAM: no rashes or lesions noted MDM - Psych MDM Narrative: Medical decision making narrative: Patient presents here with suicidal ideation. Patient is medically cleared and I spoke to Dr. Emanuel and will admit at this time. Lab Data: Labs: Lab Results 08/02/19 08/02/19 Range/Units 20:10 20:10 WBC 8.3 (4.0-10.0) 10^3/ uL RBC 4.69 (4.1-5.3) 10^6/u L Hgb 14.6 (11.7-16.6) g/dL Hct 44.0 (42.0-52.0) % MCV 93.8 (80-94) fL MCH 31.1 (28.0-34.0) pg MCHC 33.2 (30.0-36.0) g/dL RDW 12.3 (12.1-15.1) % Plt Count 340 (130-400) 10^3/c mm MPV 10.0 (7.4-10.4) fL Neut % (Auto) 66.8 % Lymph % (Auto) 25.8 % [place] % (Auto) 5.4 % Eos % (Auto) 1.2 % Baso % (Auto) 0.6 % Neut # (Auto) 5.6 (1.8-7.7) 10^3/u L Lymph # (Auto) 2.2 (0.8-4.8) 10^3/u L [place] # (Auto) 0.5 (0.2-0.9) 10^3/u L Eos # (Auto) 0.1 (0.0-0.8) 10^3/u L Baso # (Auto) 0.1 (0.0-0.1) 10^3/u L Nucleated RBC % (a uto) 0 % Nucleated RBCs # 0.0 /100WBC Sodium 137 (136-145) mmol/L Potassium 3.8 (3.5-5.1) mmol/L Chloride 100 (98-107) mmol/L Carbon Dioxide 25 (22-29) mmol/L Anion Gap 15.8 (5-19) BUN 13 (6-20) mg/dL Creatinine 0.8 (0.7-1.2) mg/dL GFR Calculation 104.5 (90-130) mL/min Glucose 93 (65-115) mg/dL Calculated Osmolal ity 280 L (285-295) mOsm/k g Calcium 9.6 (8.5-10.5) mg/dL Total Bilirubin 0.4 (0.15-1.2) mg/dL AST 24 (0-40) U/L ALT 16 (0-41) U/L Alkaline Phosphata se 94 (40-130) IU/L Total Protein 7.4 (6.6-8.7) g/dL Albumin 4.5 (3.5-5.2) g/dL Globulin 2.9 (1.3-4.6) g/dL Salicylates < 0.3 L (3-10) mg/dL Acetaminophen < 5.0 L (10-30) ug/mL Ethyl Alcohol < 10 (0-10) mg/dL Discharge Plan Discharge Patient Disposition: Admitted As Inpatient Clinical Impression: Suicidal ideation Condition: Stable Coding Level of Care Code ED Cigar Wrapper Tender Automatic for g Fwd Exam Comprehensive The documentation recorded by the Mervin silva Stephanie Lyn, accurately reflects the service I personally performed and the decisions made by me, Jeremy Mercer MD Aug 02, 2019 19:36
[2019-08-02 19:47] VITALS: BP 148/81; PULSE 90; RESP 18; TEMP 36.7; O2SAT 98; BMI 20.2
--- NOTE | 2019-08-02 20:05 | PC.NURSE ---
Patient returned from the bathroom and refused to dress out into paper scrubs. Patient voiced that he could not go to another facility due to not having anywhere to go . Provider notified. Provider came to speak with patient concerning patient statements and that the provider needed to take these statements seriously. Patient is understanding, although not happy about it.
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
[2019-08-02 20:24] LABS: Basophils # 0.1 10^3/uL (0.0-0.1); Basophils % 0.6 %; Eosinophils # 0.1 10^3/uL (0.0-0.8); Eosinophils % 1.2 %; Hemoglobin 14.6 g/dL (11.7-16.6); Lymphocytes # 2.2 10^3/uL (0.8-4.8); Lymphocytes % 25.8 %; Mean Corpuscular HGB Conc 33.2 g/dL (30.0-36.0); Mean Corpuscular Hemoglobin 31.1 pg (28.0-34.0); Mean Corpuscular Volume 93.8 fL (80-94); Monocytes # 0.5 10^3/uL (0.2-0.9); Monocytes % 5.4 %; Neutrophils # 5.6 10^3/uL (1.8-7.7); Neutrophils % 66.8 %; Nucleated Red Blood Cells % 0 %; Platelet Count 340 10^3/cmm (130-400); Red Blood Count 4.69 10^6/uL (4.1-5.3); Red Cell Distribution Width 12.3 % (12.1-15.1); White Blood Count 8.3 10^3/uL (4.0-10.0)
[2019-08-02 20:31] LABS: Alanine Aminotransferase 16 U/L (0-41); Albumin Level 4.5 g/dL (3.5-5.2); Alkaline Phosphatase 94 IU/L (40-130); Anion Gap 15.8 (5-19); Blood Urea Nitrogen 13 mg/dL (6-20); Calcium 9.6 mg/dL (8.5-10.5); Carbon Dioxide 25 mmol/L (22-29); Chloride 100 mmol/L (98-107); Globulin 2.9 g/dL (1.3-4.6); Glomerular Filtration Rate 104.5 mL/min (90-130); Glucose 93 mg/dL (65-115); Osmolality Calculated 280 mOsm/kg (285-295); Potassium 3.8 mmol/L (3.5-5.1); Sodium 137 mmol/L (136-145); Total Bilirubin 0.4 mg/dL (0.15-1.2); Total Protein 7.4 g/dL (6.6-8.7)
[2019-08-02] MEDS: LORazepam 2 mg Tablet PO (20:31)
[2019-08-02] MEDS: nicotine 21 mg Patch 1 PATCH TRANSDERMA (20:32)
[2019-08-02 20:38] LABS: Acetaminophen < 5.0 ug/mL (10-30); Alcohol Level < 10 mg/dL (0-10); Salicylate < 0.3 mg/dL (3-10)
[2019-08-02 21:11] LABS: Aspartate Amino Transferase 24 U/L (0-40)
[2019-08-02 23:34] VITALS: RESP 18
[2019-08-02 23:48] VITALS: BP 97/65; PULSE 99; RESP 17; TEMP 36.6; O2SAT 100
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
[2019-08-03 06:00] VITALS: BP 120/84; PULSE 68; RESP 18; TEMP 36.6; O2SAT 99
[2019-08-03] MEDS: citalopram 20 mg Tablet PO (08:39)
[2019-08-03 10:42] LABS: Amphetamines Screen Urine Negative (Negative); Barbiturates Screen Urine Negative (Negative); Benzodiazepines Screen Urine Positive (Negative); Cocaine Screen Urine Negative (Negative); Opiate Screen Urine Negative (Negative); PCP Screen Urine Negative (Negative); THC Screen Urine Negative (Negative)
[2019-08-03 14:00] VITALS: BP 114/73; PULSE 77; RESP 18; TEMP 36.9; O2SAT 96
[2019-08-03] MEDS: nicotine 2 mg Gum BUCCAL ×2 (14:41→17:35)
--- NOTE | 2019-08-03 15:37 | P.HP_ITS ---
Providers/Chief Complaint Admitting Physician: Bernardo Emanuel MD Chief Complaint: mhe HPI NPU History of Present Illness Marty Islas Jr is a 43 year old male who presents today reporting that he left the hospital but did not picker / packer his medication partially due to logistics. He reports that he lives with his mom and they have been fighting. He reports that she says things to him that just really pushes buttons and send him over the edge. The report is that the police confiscated the gun that he had. He reports that can be confirmed. He reports that he wants to leave his son as he can but he has no plan to go back to his mom's at this point. He was asked Pointblank whether his desire to leave quickly was the goal and harm himself or harm his mother and he denied that. He reports that since he left the hospital that he has used methamphetamine again he reports that that happened on Wednesday. He reports that the medication had been helpful and he probably would be in a better situation had he continued it. He endorses 1 suicide attempt last December. Otherwise he denies that being a problem. He reports that he feels better and thinks that the resumption of the medication will do the trick and him not going directly back to mom's place. Psychiatric history: As above. This is his third hospitalization and they have all been here at [facility]. He denies having significant medication trials. Substance abuse history: He endorses smoking about half a pack of cigarettes a day. He does not drink alcohol with any regularity. He denies marijuana use. He denies current cocaine him opiate use. He reports the methamphetamine use has been a problem for a while. He is currently in outpatient rehab at [facility]. And he endorses having a DWI 10 years ago. Family history: He endorses some mental health issues in his family but he is not really sure how extensive. He endorses significant addiction issues on both sides of the family. And reports that his paternal uncle committed suicide. Developmental history: He denies any issues with his mom's or delivery of him. He reports he learned to walk and talk and met his developmental milestones on time. He reports there was some speech therapy but denies learning support, emotional support or special education classes. Psychosocial history: He reports his mother and father were together when he was born and that he has an older sister was the product of that same relationship. He reports that his parents stayed together until his father 20 years ago. He has no half siblings. He reports that his childhood was like everybody else's. He denied any emotional, physical or sexual abuse. His highest grade he reached was the 11th grade but he did get his GED. He endorses being heterosexual with his longest relationship being 18 years. He is been 1 time and 1 time. He has 3 children a 17-year-old daughter, and a set of fraternal twins that are 14 a boy and a girl. He is never been in the denies any jewish belief system. His longest work history was 15 years at [employer]. He was living with his mother and his maternal grandmother prior to coming in. Legal history: He reports he has been in retirement multiple times but they were only overnight stay s. Per recent evaluation: HPI NPU History of Present Illness Marty Islas Jr is a 43 year old male with suicidal ideation ( I was going to shoot myself. ) and auditory/visual hallucinations with conversations with people who aren't there. The patient said he quit methamphetamine again the day before yesterday and started having suicidal ideation yesterday. Patient had attempted suicide last year by overdose. He has no chronic medical conditions. He smokes cigarettes and uses methamphetamines. He has not had any alcohol in a about a month. He seeks admission to the NPU to get help and get on some medications. Review of Systems Narrative: General: Reports: 10 or more systems reviewed and unremarkable except in HPI and below Psych: Reports: visual/auditory hallucinations and suicidal ideation; Denies: homicidal ideation Meds NPU Home Medications Medication Instructions Recorded Confirmed Type No Known Home Medications 07/23/19 07/23/19 History Allergies Allergy/AdvReac Type Severity Reaction Status Date / Time Penicillins Allergy Unknown Verified 07/23/19 09:22 [facility] NPU PFS: Medical History (Updated 07/23/19 @ 20:15 by Devan Hartman) Polysubstance dependence in early, early partial, sustained full, or sustained partial remission Family History (Updated 07/23/19 @ 20:10 by Devan Hartman) Family/Other Psychiatric illness His dad's brothers (2) had problems with methamphetamine also. Social History (Updated 07/23/19 @ 09:25 by Linda Bennington) Smoking and tobacco status: current every day smoker Substance/Drug Use: current Substance/Drug use type: Methamphetamine Last substance use date: 07/21/19 Other Psychiatric History: Other Psychiatric History: He had depression 2 years ago and was hospitalized here after attempting an overdose. Home Safety: Firearms in home: Yes Firearms unloaded and locked?: No Meds NPU Allergies Allergy/AdvReac Type Severity Reaction Status Date / Time penicillin V Allergy Unknown Verified 07/25/19 15:45 Penicillins Allergy Unknown Verified 07/25/19 15:45 PFSH NPU PFSH: Social History Smoking and tobacco status: current every day smoker Last substance use date: 07/21/19 Mental Status Exam MSE Comments: This is a slender/underweight white male with adequate dress, grooming and eye contact. No abnormal movements. Cooperative with exam in no acute distress. Speech was normal rate and volume. Mood described as much better, affect slightly subdued. Thought process organized. Thought content: Patient denied any suicidal or homicidal ideations, there were no delusions repo rted or noted, he denied any auditory or visual hallucinations. Attention and concentration appeared intact and memory appeared reliable but none were formally tested. He is alert and oriented x3. Insight and judgment are limited but improving. Vitals/I&O/Wt Last Vital Signs Temp 98.4 F 08/03/19 14:00 Pulse 77 08/03/19 14:00 Resp 18 08/03/19 14:00 BP 114/73 08/03/19 14:00 Pulse Ox 96 08/03/19 14:00 Weight last 48 hrs Weight 65.771 kg Home Medications aripiprazole 2 mg PO BEDTIME 30 Days #30 tab 07/25/19 [Rx Confirmed 08/02/19] citalopram 20 mg PO DAILY #30 tab 07/25/19 [Rx Confirmed 08/02/19] doxepin 50 mg PO BEDTIME #30 cap 07/25/19 [Rx Confirmed 08/02/19] Active Medications Acetaminophen (Tylenol) 650 mg PO Q4H PRN PRN Reason: MILD PAIN Aripiprazole (Abilify) 2 mg PO BEDTIME JEFFREY Last Admin: 08/03/19 20:48 Dose: 2 mg Documented by: Benztropine Mesylate (Cogentin) 1 mg PO BID PRN PRN Reason: Mild Extrapyramidal symptoms Camphor/Menthol/Phenol (Blistex) 1 applic TOPICAL Q1H PRN PRN Reason: DRYNESS Citalopram Hydrobromide (Celexa) 20 mg PO DAILY [facility] Last Admin: 08/03/19 08:39 Dose: 20 mg Documented by: Diphenhydramine HCl (Benadryl) 50 mg IM ONCE PRN PRN Reason: Severe Extrapyramidal Symptoms Diphenhydramine HCl (Benadryl) 50 mg IM Q4H PRN PRN Reason: Severe Aggression Doxepin HCl (Sinequan) 50 mg PO BEDTIME [facility] Last Admin: 08/03/19 20:48 Dose: 50 mg Documented by: Haloperidol (Haldol) 5 mg PO Q4H PRN PRN Reason: AGITATION Haloperidol Lactate (Haldol Inj) 5 mg IM Q4H PRN PRN Reason: Severe Aggression Hydroxyzine Pamoate (Vistaril) 50 mg PO Q6H PRN PRN Reason: ANXIETY Loperamide HCl (Imodium Capsule) 2 mg PO Q6H PRN PRN Reason: DIARRHEA Lorazepam (Ativan) 2 mg IM Q4H PRN PRN Reason: Severe Aggression Nicotine (Nicoderm 21 Mg Patch) 1 patch TRANSDERMA DAILY PRN PRN Reason: NICOTINE WITHDRAWAL Nicotine Polacrilex (Nicorette) 2 mg BUCCAL Q2H PRN PRN Reason: NICOTINE WITHDRAWAL Last Admin: 08/03/19 17:35 Dose: 2 mg Documented by: Olanzapine (Zyprexa Zydis) 5 mg PO Q4H PRN PRN Reason: Agitation/Psychosis Ondansetron HCl (Zofran) 4 mg PO Q6H PRN PRN Reason: NAUSEA AND VOMITING Trazodone HCl (Desyrel) 50 mg PO BEDTIME PRN PRN Reason: SLEEP Last Admin: 08/03/19 20:48 Dose: 50 mg Documented by: Data NPU : 08/02/19 20:10 08/02/19 20:10 A&P Assessment and plan (1) Depression: This is a 43-year-old white male with a long history of addiction and mood dysregulation, depression and insomnia who presents after recent discharge where he did not picker / packer the prescriptions endorsing a desire to be discharged however he is on a 96-hour hold secondary to a circumstance involving a gun. 1. Continue current medications. We restarted the medications that had been prescribed at his last visit. 2. Encourage individual, group and milieu therapy. 3. Continue to 15-minute checks for safety. 4. We will work with treatment team on a safety plan and verification of access to weapons and discharge back to outpatient rehab. Status: Acute Qualifiers: Active/Remission status: currently active Depression Type: major depressive disorder Major depression episode severity: severe Major depression recurrence: recurrent Psychotic features: with psychotic features Qualified Code(s): F33.3 - Major depressive disorder, recurrent, severe with psychotic symptoms Code(s): F32.9 - Major depressive disorder, single episode, unspecified (2) Suicidal ideation: Status: Acute Code(s): R45.851 - Suicidal ideations (3) Methamphetamine dependence: Status: Acute Code(s): F15.20 - Other stimulant dependence, uncomplicated (4) Parent-child relational problem: Status: Acute Code(s): Z62.820 - Parent-biological child conflict Involuntary Hold Information 96 Hour Hold: 96 Hour Involuntary Admission: Yes 96 Hour Hold Ending Date: 08/08/19 96 Hour Hold Ending Time: 20:18 Attestations NPU Medical Necessity Statement*: Inpatient hospitalization is medically necessary and the clinically appropriate intervention at this time. We will restart his medications and titrate/changes indicated. He will be in the hospital for over 2 midnights. Likely length of stay 2 to 4 days. Coding Level of Care Code Acute Process Excellence Manager for Gaudencio Ng Diagnoses Depression F33.3 Active/Remission status: currently active Depression Type: major depressive disorder Major depression episode severity: severe Major depression recurrence: recurrent Psychotic features: with psychotic features Suicidal ideation R45.851 Methamphetamine dependence F15.20 Parent-child relational problem Z62.820
[2019-08-03 20:27] VITALS: BP 104/63; PULSE 75; RESP 16; TEMP 36.9; O2SAT 96
[2019-08-03] MEDS: doxepin 50 mg Capsule PO (20:48)
[2019-08-03] MEDS: ARIPiprazole 2 mg Tablet PO (20:48)
[2019-08-03] MEDS: trazodone 50 mg Tablet PO (20:48)
--- NOTE | 2019-08-03 20:48 | PC.NURSE ---
HS meds abilify and doxepin as well as PRN trazodone given at this time.
[2019-08-04 06:00] VITALS: BP 121/67; PULSE 56; RESP 16; TEMP 37.1; O2SAT 97
[2019-08-04] MEDS: citalopram 20 mg Tablet PO (08:49)
[2019-08-04 14:00] VITALS: BP 107/61; PULSE 70; RESP 16; TEMP 37; O2SAT 97
--- NOTE | 2019-08-04 16:02 | P.DS_ITS ---
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 He reports that he lives with his mom and they have been fighting. He reports that she says things to him that just really pushes buttons and send him over the edge. The report is that the police confiscated the gun that he had. He reports that can be confirmed. He reports that he wants to leave his son as he can but he has no plan to go back to his mom's at this point. He was asked Pointblank whether his desire to leave quickly was the goal and harm himself or harm his mother and he denied that. He reports that since he left the hospital that he has used methamphetamine again he reports that that happened on Wednesday. He reports that the medication had been helpful and he probably would be in a better situation had he continued it. He endorses 1 suicide attempt last December. Otherwise he denies that being a problem. He reports that he feels better and thinks that the resumption of the medication will do the trick and him not going directly back to mom's place. Psychiatric history: As above. This is his third hospitalization and they have all been here at [facility]. He denies having significant medication trials. Substance abuse history: He endorses smoking about half a pack of cigarettes a day. He does not drink alcohol with any regularity. He denies marijuana use. He denies current cocaine him opiate use. He reports the methamphetamine use has been a problem for a while. He is currently in outpatient rehab at [facility]. And he endorses having a DWI 10 years ago. Family history: He endorses some mental health issues in his family but he is not really sure how extensive. He endorses significant addiction issues on both sides of the family. And reports that his paternal uncle committed suicide. Developmental history: He denies any issues with his mom's or delivery of him. He reports he learned to walk and talk and met his developmental milestones on time. He reports there was some speech therapy but denies learning support, emotional support or special education classes. Psychosocial history: He reports his mother and father were together when he was born and that he has an older sister was the product of that same relationship. He reports that his parents stayed together until his father 20 years ago. He has no half siblings. He reports that his childhood was like everybody else's. He denied any emotional, physical or sexual abuse. His highest grade he reached was the 11th grade but he did get his GED. He endorses being heterosexual with his longest relationship being 18 years. He is been 1 time and 1 time. He has 3 children a 17-year-old daughter, and a set of fraternal twins that are 14 a boy and a girl. He is never been in the denies any restorationism belief system. His longest work history was 15 years at [employer]. He was living with his mother and his maternal grandmother prior to coming in. Legal history: He reports he has been in [facility] multiple times but they were only overnight stays. Per recent evaluation: HPI NPU History of Present Illness Marty Islas Jr is a 43 year old male with suicidal ideation ( I was going to shoot myself. ) and auditory/visual hallucinations with conversations with people who aren't there. The patient said he quit methamphetamine again the day before yesterday and started having suicidal ideation yesterday. Patient had attempted suicide last year by overdose. He has no chronic medical conditions. He smokes cigarettes and uses methamphetamines. He has not had any alcohol in a about a month. He seeks admission to the NPU to get help and get on some medications. Review of Systems Narrative: General: Reports: 10 or more systems reviewed and unremarkable except in HPI and below Psych: Reports: visual/auditory hallucinations and suicidal ideation; Denies: homicidal ideation Meds NPU Home Medications Medication Instructions Recorded Confirmed Type No Known Home Medications 07/23/19 07/23/19 History Allergies Allergy/AdvReac Type Severity Reaction Status Date / Time Penicillins Allergy Unknown Verified 07/23/19 09:22 [facility] NPU PFS: Medical History (Updated 07/23/19 @ 20:15 by Devan Hartman) Polysubstance dependence in early, early partial, sustained full, or sustained partial remission Family History (Updated 07/23/19 @ 20:10 by Devan Hartman) Family/Other Psychiatric illness His dad's brothers (2) had problems with methamphetamine also. Social History (Updated 07/23/19 @ 09:25 by Linda Abad) Smoking and tobacco status: current every day smoker Substance/Drug Use: current Substance/Drug use type: Methamphetamine Last substance use date: 07/21/19 Other Psychiatric History: Other Psychiatric History: He had depression 2 years ago and was hospitalized here after attempting an overdose. Home Safety: Firearms in home: Yes Firearms unloaded and locked?: No Hospital Course Hospital Course Marty presented to the emergency room secondary to a fight that he had with his mom, which reportedly got pretty escalated. Reportedly, there was a gun involved. According to him the police confiscated that gun. He was angry and out of sorts and presented to the emergency room and was admitted to the neuropsychiatric unit for definitive care. He quickly acclimated to the individual, group, and milieu therapy provided. He was desirous of discharge and not wanting to continue inpatient. He identified that he had no plan to harm himself or harm anyone, and that the frustration that erupted things was that after his recent discharge he did relapse and use methamphetamine, and instead of having a supportive situation with his mom it got ugly. We restarted the medications, which he had not picked up, and endorsed he would quarry supervisor the medication this time to make sure that things did not decompensate. He responded fine to being back on the medication. During the hospitalization he had routine laboratory studies which were within normal limits, except for a few outliers, including being positive for methamphetamine. Additionally, he had a general medical evaluation which was also within normal limits and revealed no acute processes. Discharge Summary At the time of discharge he denied all lethality. His mood and anxiety were well managed. He endorsed a plan to avoid all drugs of abuse and follow up with all scheduled appointments and referrals made. At the time of discharge he was evaluated and deemed to absent credible lethality and was desirous to be discharged, receiving the maximum benefit from inpatient hospitalization, and so he was discharged. Involuntary Hold Information 96 Hour Hold: 96 Hour Involuntary Admission: Yes 96 Hour Hold Ending Date: 08/08/19 96 Hour Hold Ending Time: 20:18 Mental Status Exam MSE Comments: This is an underweight, white male, with adequate dress, and limited grooming and eye contact. No abnormal movements, except for mild psychomotor retardation. Cooperative with exam in no acute distress. Speech was slightly decreased rate and volume. Mood described as fine; affect slightly subdued. Thought process, organized. Thought content: patient denied any suicidal or homicidal ideation, there were no delusions reported or noted, patient denied any auditory or visual hallucinations. Attention, concentration, and memory appeared intact but were not formally tested. He is alert and o riented times three. Insight and judgment are limited but improving. Discharge Data Vitals: Last Vital Signs Temp 98.6 F 08/04/19 14:00 Pulse 70 08/04/19 14:00 Resp 16 08/04/19 14:00 BP 107/61 08/04/19 14:00 Pulse Ox 97 08/04/19 14:00 Discharge Plan Discharge Patient Disposition: Home, Self-Care Condition: Stable Prescriptions: Continued citalopram 20 mg Tablet 20 mg PO DAILY Qty: 30 RF: 3 Discharge Orders: Discharge Order (Routine); Ordered 08/04/19 Ordered By: Bernardo Emanuel Referrals: [facility] [Outside] - 09/26/19 3:00 pm Sirisha Queen [Therapist] - 08/15/19 4:00 pm Discharge Diet: Regular Discharge Activity: Resume usual activity Activity Restrictions/Additional Instructions: Do continue outpatient rehab at [facility] whenever it is possible. [address] [place] [address] Your mom had said to personal financial planner Rosetta that your clothes will be on the front porch if you want your friend come by to get them. She expressed much concern for you but is not ready to communicate with you. She wants to be hopeful she can have a relationship in the future. Your mom mentioned to personal financial planner about you needing to touch base with work. She understands that you still have a job but you need to be in touch with them. If interested, do check on your referral at [email or web address] (for transitional sober living) by calling [phone] or you may email at [email or web address]. $500 is needed for the first month. [facility] [address] [place] [address] Call REINA Sargent personal financial planner at [phone] ext. [phone] if you need assistance with referral. Discharge Date/Time: 08/04/19 16:40 Discharge Attestations NPU Time Spent in Discharge Care*: less than 30 min Specific Discharge Activities: Specific discharge activities: educating patient, discussing with casework manager/social workers/dc planners, documenting/other paperwork and evaluating patient/reviewing data Coding Level of Care Code Acute Dye Tank Tender for Gaudencio Fwd Diagnoses Methamphetamine dependence F15.20 Parent-child relational problem Z62.822
[2019-08-04 16:08] VITALS: BP 107/61; PULSE 70; RESP 16; TEMP 37; O2SAT 97
== END 2019-08-04 16:40 | disposition home or self-care (01) | DRG 885 ==
LOC: ER 21:52 → NP 23:11
PROVIDERS: Admitting Provider Psychiatry & Neurology Psychiatry; Emergency Provider Emergency Medicine; Visit Provider Psychiatry & Neurology Psychiatry
DX: F33.3 Major depressive disorder, recurrent, severe with psychotic symptoms (principal); R45.851 Suicidal ideations; F15.20 Other stimulant dependence, uncomplicated; F17.210 Nicotine dependence, cigarettes, uncomplicated; Z62.820 Parent-biological child conflict
CPT/HCPCS: 12345; 36415; 80053; 80306; 80307; 85025; 99284

== ENCOUNTER 2019-08-10 09:56 | Inpatient (IN) | payer SELFPAY ==
[2019-08-10] VITALS (53 sets, daily range): BP systolic 51–113; BP diastolic 32–75; PULSE 67–107; RESP 0–34; TEMP 31.6–37.9; O2SAT 72–100; BMI 22.1
--- NOTE | 2019-08-10 10:09 | XR_ITS ---
WS: [id number] PORTABLE CHEST HISTORY: ET placement COMPARISON: 08/14/2010 Endotracheal tube has been placed with tip ending 9 mm above the annmarie and needs to be retracted 1 t o 2 cm. Scattered patchy opacifications throughout the RIGHT lung. Increasing consolidation posterior to LEFT heart. No pleural effusion or pneumothorax. Cardiac size: Normal. Mediastinum/Aorta: Normal mediastinum. Lytic and sclerotic bony expansile lesion in the mid RIGHT humerus measures 6.7 x 2.7 cm. Mild expans ion of the bone but the cortex is intact although thinned. XR/XR chest 1V portable [id number] IMPRESSION: 1. Endotracheal tube needs to be retracted 1 to 2 cm for more optimal position ing. 2. Multifocal opacifications, probably pneumonia. 3. Mid RIGHT humeral diaphyseal mixed sclerotic and lytic bone lesion. No prio r studies for stability. Will need to be further evaluated after patient's acut e episode resolves to exclude aggressive lesion/metastatic disease.
--- NOTE | 2019-08-10 10:12 | PC.NURSE ---
pt was intubated by ems en route. ET tube is a 7.5 and 22 at lip when pt arrived to the ED
--- NOTE | 2019-08-10 10:21 | CT_ITS ---
WS: [id number] CT HEAD NONCONTRAST HISTORY: Loss of consciousness. Unknown cause. TECHNIQUE: Contiguous axial imaging performed through the brain in 2.5 mm imaging. Bone and soft tiss ue windows. Sagittal and coronal reformats reviewed. All CT scans at [facility] use at le ast one of these dose optimization techniques: automated exposure control; mA and/or kV adjustment pe r patient size (includes targeted exams where dose is matched to clinical indication); or iterative r econstruction. DLP: 934.92 mGy.cm COMPARISON: 11/18/2018 No acute intracranial hemorrhage, midline shift or mass effect. Pavon-white matter differentiation is less distinct on today's examination as compared to 11/18/2018. Probably due to difference in techniqu e. Cannot confirm cerebral edema. No atrophy or prior infarcts or herniation. Ventricles appears smaller in size but I believe this is due to position during imaging and not true compression of the ventricles. Ventricles are patent. Ventricles: Normal size with no hydrocephalus. No inferior displacement of cerebellar tonsils. Paranasal sinuses: Nasopharyngeal thickening and a small air-fluid level in the LEFT frontal sinus. Mastoid air cells: Mild coalescence of mastoid air cells and chronic mastoid air cell disease. Simila r to the prior study. Calvarium and scalp: Mild scalp edema greatest over the frontal bones. CT/CT head wo con* [id number] IMPRESSION: 1. No acute intracranial hemorrhage. 2. Frontal scalp edema.
--- NOTE | 2019-08-10 10:24 | ECG_ITS ---
Measurements Intervals [place] Rate: 68 P: 79 NC: 213 QRS: 85 QRSD: 122 T: 77 QT: 358 QTc: 381 SINUS RHYTHM WITH FIRST DEGREE AV BLOCK MODERATE INTRAVENTRICULAR CONDUCTION DELAY [110+ ms QRS DURATION] NONSPECIFIC T-WAVE ABNORMALITY No previous ECG available for comparison Electronically Signed On 08-10-2019 18:14:39 CDT by Abhay Bird M.D. [email or web address]
--- NOTE | 2019-08-10 10:24 | W.ED.OVERDOS ---
HPI - Overdose General: Chief Complaint: Overdose Stated Complaint: POSSIBLE DRUG OVERDOSE/ UNRESPONSIVE Time Seen by Provider: 08/10/19 10:21 History of Present Illness: HPI Narrative: 43-year-old male presents emergency room via EMS on arrival he is intubated he does have spontaneous circulation there is obvious evidence of aspiration and that there are food particles regurgitating in the ET tube. Patient brought in by EMS and PD. PD reports they were called for health and welfare check when bystanders had noted he had been laying on the ground for approximately 15 minutes when they arrived he was nonresponsive he was placed in the lateral recumbent recovery position there was evidence of vomit at the mouth. EMS was called. EMS intubated the patient on arrival they said he had some moaning but no vocalized words. No meaningful movements. He vomited at the time of intubation. On arrival here there is food particles noted in the ET tube. PD also mentioned that other bystanders said they seen the patient running around yelling and screaming sometime prior to him going down but they did not know how long prior that was. I did call a family member they had seen him the day before and he seemed to be his normal baseline. They stated 3 days before they noted he had a little bit of a cough but they had no evidence of fever and he had not mentioned anything significant in terms of the cough. There had been some family strife going on when he had an expiratory order against him from his mother due to erratic behaviors in her home related to chronic substance abuse MD complaint: intentional overdose (Suspected) Review of Systems General: Reports: ROS unobtainable due to endotracheal tube [facility] ED PFSH: Social History Smoking and tobacco status: unknown if ever smoked Last substance use date: 07/21/19 Physical Exam Resp: COMMON NORMALS: normal respiratory effort, no retractions and no use of accessory muscles AUSCULTATION: rhonchi (Bilaterally right greater than left) and wheezes Cardio: COMMON NORMALS: regular rate and regular rhythm RATE: regular rate and bradycardic RHYTHM: regular rhythm HEART SOUNDS: no murmurs GI: COMMON NORMALS: normal to inspection, nondistended, normoactive bowel sounds, soft to palpation and no hepatosplenomegaly PALPATION: Yes soft and Yes no hepatosplenomegaly Extremity: COMMON NORMALS: no clubbing, cyanosis or edema, no calf tenderness and no pedal edema Skin: NARRATIVE SKIN EXAM: Some open lesions of the penis that are dry and crusted there are no other skin rashes noted examination of the back there is no evidence of injury deformity or wounds. Course Vital Signs: Vital signs: Vital Signs Temperature 97.8 F 08/11/19 08:00 Pulse Rate 74 08/11/19 08:00 Respiratory Rate 16 08/11/19 08:00 Blood Pressure 97/59 08/11/19 08:00 Pulse Oximetry 100 08/11/19 08:00 MDM - Overdose MDM Narrative: Medical decision making narrative: Patient presents intubated he has good bilateral breath sounds but there is food particles in the ET tube because of current Kovia had code precautions were limited what we could do he was not requiring CPR he was hypotensive. He was started on levo fed appropriate labs and cultures were drawn and he started on antibiotics for likely aspiration pneumonia. He has been Kovic tested as well. He was switched over to a vent and is ET tube position was checked ET tube was withdrawn by 2 cm he was getting ventilation to both lungs but it was very close to the annmarie. He had a Bonds placed had very little to no urine output so dopamine was started along with the levo fed and he was resuscitated with IV fluids. He did begin to improve his urine output while in the emergency room. Discussed Dr. Hdz and he will accept the patient to the ICU. CT of the head was done and did not show any acute intracranial pathology. See the CT chest x-ray as well. Patient was found with a bottle of Celexa at the scene it had been dispensed mid July and was empty there was no other evidence of prescription drugs or drugs of abuse per law enforcement. Suspect the patient did overdose on an unknown substance will treat with supportive cares treat for pneumonia will be admitted to the ICU. Lab Data: Attestation: I reviewed the patient's lab results. Labs: Lab Results 08/10/19 08/10/19 08/10/19 Range/Units 10:02 10:02 10:02 WBC 4.1 (4.0-10.0) 10^3/ uL RBC 4.70 (4.1-5.3) 10^6/u L Hgb 14.6 (11.7-16.6) g/dL Hct 43.8 (42.0-52.0) % MCV 93.2 (80-94) fL MCH 31.1 (28.0-34.0) pg MCHC 33.3 (30.0-36.0) g/dL RDW 11.9 L (12.1-15.1) % Plt Count 303 (130-400) 10^3/c mm MPV 10.0 (7.4-10.4) fL Neut % (Auto) 87.0 % Lymph % (Auto) 9.9 % Hayes % (Auto) 2.7 % Eos % (Auto) 0.2 % Baso % (Auto) 0.2 % Neut # (Auto) 3.6 (1.8-7.7) 10^3/u L Lymph # (Auto) 0.4 L (0.8-4.8) 10^3/u L Hayes # (Auto) 0.1 L (0.2-0.9) 10^3/u L Eos # (Auto) 0.0 (0.0-0.8) 10^3/u L Baso # (Auto) 0.0 (0.0-0.1) 10^3/u L Nucleated RBC % (a uto) 0 % Nucleated RBCs # 0.0 /100WBC Specimen Type Sample Site ABG pH (7.35-7.45) ABG pCO2 (35-45) mmHg ABG pO2 (80.0-100.0) mmH g ABG HCO3 (22-26) mmol/L ABG O2 Saturation ABG Base Excess (-2.0-2.0) mmol/ L Srinivas Test A-a O2 Gradient (5-10) mmHg Hematocrit (42-52) % Hgb O2 Saturation (95-100) % Carboxyhemoglobin (0.4-20.1) %THgb Methemoglobin (0.4-1.5) % Total Hemoglobin (14-18) g/dL Ionized Calcium (1.1-1.4) mmol/L Respiration Rate % O2 Delivery Device FiO2 % Tidal Volume PEEP cmH20 Merchandise Flow Associate ID Sodium 139 (136-145) mmol/L Potassium 3.6 (3.5-5.1) mmol/L Chloride 102 (98-107) mmol/L Carbon Dioxide 27 (22-29) mmol/L Anion Gap 13.6 (5-19) BUN 24 H (6-20) mg/dL Creatinine 0.9 (0.7-1.2) mg/dL GFR Calculation 91.3 (90-130) mL/min Glucose 160 H (65-115) mg/dL Calculated Osmolal ity 288 (285-295) mOsm/k g Calcium 8.9 (8.5-10.5) mg/dL Total Bilirubin 0.5 (0.15-1.2) mg/dL AST 14 (0-40) U/L ALT 12 (0-41) U/L Alkaline Phosphata se 86 (40-130) IU/L Creatine Kinase (39-308) U/L Troponin T Baselin e (0-15) ng/mL Troponin T 120 Min absentee-shawnee (0-15) ng/mL Delta Troponin T (0-10) ABS# Total Protein 6.7 (6.6-8.7) g/dL Albumin 4.1 (3.5-5.2) g/dL Globulin 2.6 (1.3-4.6) g/dL Lipase 8 L (13-60) U/L Urine Color (Yellow) Urine Appearance (CLEAR) Urine pH (5-7) Ur Specific Gravit y (1.005-1.030) Urine Protein (Negative) Urine Glucose (UA) (Normal) Urine Ketones (Negative) Urine Blood (Negative) Urine Nitrate (Negative) Urine Bilirubin (NEGATIVE) Urine Urobilinogen (Negative) mg/dL Ur Leukocyte Nohemy ase (Negative) Salicylates < 0.3 L (3-10) mg/dL Urine Opiates Scre en (Negative) ng/mL Acetaminophen < 5.0 L (10-30) ug/mL Ur Barbiturates Sc reen (Negative) ng/mL Ur Phencyclidine S crn (Negative) ng/mL Ur Amphetamines Sc reen (Negative) ng/mL U Benzodiazepines Scrn (Negative) ng/mL Urine Cocaine Scre en (Negative) ng/mL U Marijuana (THC) Screen (Negative) ng/mL Ethyl Alcohol < 10 (0-10) mg/dL Serum Ketones Negative (Negative) Influenza Type A A g (Negative) Influenza Type B A g (Negative) 08/10/19 08/10/19 08/10/19 Range/Units 10:02 10:02 10:13 WBC (4.0-10.0) 10^3/ uL RBC (4.1-5.3) 10^6/u L Hgb (11.7-16.6) g/dL Hct (42.0-52.0) % MCV (80-94) fL MCH (28.0-34.0) pg MCHC (30.0-36.0) g/dL RDW (12.1-15.1) % Plt Count (130-400) 10^3/c mm MPV (7.4-10.4) fL Neut % (Auto) % Lymph % (Auto) % Hayes % (Auto) % Eos % (Auto) % Baso % (Auto) % Neut # (Auto) (1.8-7.7) 10^3/u L Lymph # (Auto) (0.8-4.8) 10^3/u L Hayes # (Auto) (0.2-0.9) 10^3/u L Eos # (Auto) (0.0-0.8) 10^3/u L Baso # (Auto) (0.0-0.1) 10^3/u L Nucleated RBC % (a uto) % Nucleated RBCs # /100WBC Specimen Type Sample Site ABG pH (7.35-7.45) ABG pCO2 (35-45) mmHg ABG pO2 (80.0-100.0) mmH g ABG HCO3 (22-26) mmol/L ABG O2 Saturation ABG Base Excess (-2.0-2.0) mmol/ L Srinivas Test A-a O2 Gradient (5-10) mmHg Hematocrit (42-52) % Hgb O2 Saturation (95-100) % Carboxyhemoglobin (0.4-20.1) %THgb Methemoglobin (0.4-1.5) % Total Hemoglobin (14-18) g/dL Ionized Calcium (1.1-1.4) mmol/L Respiration Rate % O2 Delivery Device FiO2 % Tidal Volume PEEP cmH20 Merchandise Flow Associate ID Sodium (136-145) mmol/L Potassium (3.5-5.1) mmol/L Chloride (98-107) mmol/L Carbon Dioxide (22-29) mmol/L Anion Gap (5-19) BUN (6-20) mg/dL Creatinine (0.7-1.2) mg/dL GFR Calculation (90-130) mL/min Glucose (65-115) mg/dL Calculated Osmolal ity (285-295) mOsm/k g Calcium (8.5-10.5) mg/dL Total Bilirubin (0.15-1.2) mg/dL AST (0-40) U/L ALT (0-41) U/L Alkaline Phosphata se (40-130) IU/L Creatine Kinase 197 (39-308) U/L Troponin T Baselin e 6 (0-15) ng/mL Troponin T 120 Min absentee-shawnee (0-15) ng/mL Delta Troponin T (0-10) ABS# Total Protein (6.6-8.7) g/dL Albumin (3.5-5.2) g/dL Globulin (1.3-4.6) g/dL Lipase (13-60) U/L Urine Color Yellow (Yellow) Urine Appearance Clear (CLEAR) Urine pH 5.0 (5-7) Ur Specific Gravit y 1.025 (1.005-1.030) Urine Protein Neg (Negative) Urine Glucose (UA) Norm (Normal) Urine Ketones 1+ H (Negative) Urine Blood Neg (Negative) Urine Nitrate Negative (Negative) Urine Bilirubin Neg (NEGATIVE) Urine Urobilinogen Norm (Negative) mg/dL Ur Leukocyte Nohemy ase Negative (Negative) Salicylates (3-10) mg/dL Urine Opiates Scre en (Negative) ng/mL Acetaminophen (10-30) ug/mL Ur Barbiturates Sc reen (Negative) ng/mL Ur Phencyclidine S crn (Negative) ng/mL Ur Amphetamines Sc reen (Negative) ng/mL U Benzodiazepines Scrn (Negative) ng/mL Urine Cocaine Scre en (Negative) ng/mL U Marijuana (THC) Screen (Negative) ng/mL Ethyl Alcohol (0-10) mg/dL Serum Ketones (Negative) Influenza Type A A g (Negative) Influenza Type B A g (Negative) 08/10/19 08/10/19 08/10/19 Range/Units 10:13 10:15 11:45 WBC (4.0-10.0) 10^3/ uL RBC (4.1-5.3) 10^6/u L Hgb (11.7-16.6) g/dL Hct (42.0-52.0) % MCV (80-94) fL MCH (28.0-34.0) pg MCHC (30.0-36.0) g/dL RDW (12.1-15.1) % Plt Count (130-400) 10^3/c mm MPV (7.4-10.4) fL Neut % (Auto) % Lymph % (Auto) % Hayes % (Auto) % Eos % (Auto) % Baso % (Auto) % Neut # (Auto) (1.8-7.7) 10^3/u L Lymph # (Auto) (0.8-4.8) 10^3/u L Hayes # (Auto) (0.2-0.9) 10^3/u L Eos # (Auto) (0.0-0.8) 10^3/u L Baso # (Auto) (0.0-0.1) 10^3/u L Nucleated RBC % (a uto) % Nucleated RBCs # /100WBC Specimen Type Arterial Sample Site Radial, right ABG pH 7.16 L* (7.35-7.45) ABG pCO2 64.4 H* (35-45) mmHg ABG pO2 44.3 L (80.0-100.0) mmH g ABG HCO3 23.1 (22-26) mmol/L ABG O2 Saturation 70.0 ABG Base Excess -6.2 L (-2.0-2.0) mmol/ L Srinivas Test Pos A-a O2 Gradient 580.8 H (5-10) mmHg Hematocrit 34.9 L (42-52) % Hgb O2 Saturation 68.6 L (95-100) % Carboxyhemoglobin 1.2 (0.4-20.1) %THgb Methemoglobin 0.7 (0.4-1.5) % Total Hemoglobin 11.4 L (14-18) g/dL Ionized Calcium 1.1 (1.1-1.4) mmol/L Respiration Rate 20.0 % O2 Delivery Device FiO2 100.0 % Tidal Volume 0.45 PEEP 10.0 cmH20 Merchandise Flow Associate ID ah Sodium 142.0 (136-145) mmol/L Potassium 2.7 L (3.5-5.1) mmol/L Chloride (98-107) mmol/L Carbon Dioxide (22-29) mmol/L Anion Gap (5-19) BUN (6-20) mg/dL Creatinine (0.7-1.2) mg/dL GFR Calculation (90-130) mL/min Glucose 106.0 (65-115) mg/dL Calculated Osmolal ity (285-295) mOsm/k g Calcium (8.5-10.5) mg/dL Total Bilirubin (0.15-1.2) mg/dL AST (0-40) U/L ALT (0-41) U/L Alkaline Phosphata se (40-130) IU/L Creatine Kinase (39-308) U/L Troponin T Baselin e (0-15) ng/mL Troponin T 120 Min absentee-shawnee (0-15) ng/mL Delta Troponin T (0-10) ABS# Total Protein (6.6-8.7) g/dL Albumin (3.5-5.2) g/dL Globulin (1.3-4.6) g/dL Lipase (13-60) U/L Urine Color (Yellow) Urine Appearance (CLEAR) Urine pH (5-7) Ur Specific Gravit y (1.005-1.030) Urine Protein (Negative) Urine Glucose (UA) (Normal) Urine Ketones (Negative) Urine Blood (Negative) Urine Nitrate (Negative) Urine Bilirubin (NEGATIVE) Urine Urobilinogen (Negative) mg/dL Ur Leukocyte Nohemy ase (Negative) Salicylates (3-10) mg/dL Urine Opiates Scre en Negative (Negative) ng/mL Acetaminophen (10-30) ug/mL Ur Barbiturates Sc reen Negative (Negative) ng/mL Ur Phencyclidine S crn Negative (Negative) ng/mL Ur Amphetamines Sc reen Positive H (Negative) ng/mL U Benzodiazepines Scrn Negative (Negative) ng/mL Urine Cocaine Scre en Negative (Negative) ng/mL U Marijuana (THC) Screen Negative (Negative) ng/mL Ethyl Alcohol (0-10) mg/dL Serum Ketones (Negative) Influenza Type A A g Negative (Negative) Influenza Type B A g Negative (Negative) 08/10/19 08/10/19 Range/Units 12:03 12:50 WBC (4.0-10.0) 10^3/ uL RBC (4.1-5.3) 10^6/u L Hgb (11.7-16.6) g/dL Hct (42.0-52.0) % MCV (80-94) fL MCH (28.0-34.0) pg MCHC (30.0-36.0) g/dL RDW (12.1-15.1) % Plt Count (130-400) 10^3/c mm MPV (7.4-10.4) fL Neut % (Auto) % Lymph % (Auto) % Hayes % (Auto) % Eos % (Auto) % Baso % (Auto) % Neut # (Auto) (1.8-7.7) 10^3/u L Lymph # (Auto) (0.8-4.8) 10^3/u L Hayes # (Auto) (0.2-0.9) 10^3/u L Eos # (Auto) (0.0-0.8) 10^3/u L Baso # (Auto) (0.0-0.1) 10^3/u L Nucleated RBC % (a uto) % Nucleated RBCs # /100WBC Specimen Type Arterial Sample Site Radial, right ABG pH 7.29 L (7.35-7.45) ABG pCO2 56.2 H (35-45) mmHg ABG pO2 71.6 L (80.0-100.0) mmH g ABG HCO3 27.0 H (22-26) mmol/L ABG O2 Saturation 93.3 ABG Base Excess -0.7 (-2.0-2.0) mmol/ L Srinivas Test Pos A-a O2 Gradient 420.7 H (5-10) mmHg Hematocrit 44.1 (42-52) % Hgb O2 Saturation 92.0 L (95-100) % Carboxyhemoglobin 0.6 (0.4-20.1) %THgb Methemoglobin 0.8 (0.4-1.5) % Total Hemoglobin 14.4 (14-18) g/dL Ionized Calcium 1.2 (1.1-1.4) mmol/L Respiration Rate 20.0 % O2 Delivery Device Vent FiO2 80.0 % Tidal Volume 0.45 PEEP 10.0 cmH20 Merchandise Flow Associate ID amh Sodium 139.0 (136-145) mmol/L Potassium 3.9 (3.5-5.1) mmol/L Chloride (98-107) mmol/L Carbon Dioxide (22-29) mmol/L Anion Gap (5-19) BUN (6-20) mg/dL Creatinine (0.7-1.2) mg/dL GFR Calculation (90-130) mL/min Glucose 105.0 (65-115) mg/dL Calculated Osmolal ity (285-295) mOsm/k g Calcium (8.5-10.5) mg/dL Total Bilirubin (0.15-1.2) mg/dL AST (0-40) U/L ALT (0-41) U/L Alkaline Phosphata se (40-130) IU/L Creatine Kinase (39-308) U/L Troponin T Baselin e (0-15) ng/mL Troponin T 120 Min absentee-shawnee 6.00 (0-15) ng/mL Delta Troponin T 0 (0-10) ABS# Total Protein (6.6-8.7) g/dL Albumin (3.5-5.2) g/dL Globulin (1.3-4.6) g/dL Lipase (13-60) U/L Urine Color (Yellow) Urine Appearance (CLEAR) Urine pH (5-7) Ur Specific Gravit y (1.005-1.030) Urine Protein (Negative) Urine Glucose (UA) (Normal) Urine Ketones (Negative) Urine Blood (Negative) Urine Nitrate (Negative) Urine Bilirubin (NEGATIVE) Urine Urobilinogen (Negative) mg/dL Ur Leukocyte Nohemy ase (Negative) Salicylates (3-10) mg/dL Urine Opiates Scre en (Negative) ng/mL Acetaminophen (10-30) ug/mL Ur Barbiturates Sc reen (Negative) ng/mL Ur Phencyclidine S crn (Negative) ng/mL Ur Amphetamines Sc reen (Negative) ng/mL U Benzodiazepines Scrn (Negative) ng/mL Urine Cocaine Scre en (Negative) ng/mL U Marijuana (THC) Screen (Negative) ng/mL Ethyl Alcohol (0-10) mg/dL Serum Ketones (Negative) Influenza Type A A g (Negative) Influenza Type B A g (Negative) Discharge Plan Discharge Patient Disposition: Admitted As Inpatient Admit Provider: Se Hdz Clinical Impression: Drug overdose, Methamphetamine dependence, Parent-child relational problem, Acute respiratory failure with hypoxia and hypercapnia, Aspiration pneumonia due to regurgitated gastric secretions Condition: Stable Interventions: ED Discharge Assessment Last Done: 08/10/19 14:45 Discharge Date/Time: 08/10/19 14:47 Coding Level of Care Code ED Brick Layer for Gaudencio Ng
--- NOTE | 2019-08-10 10:24 | PC.NURSE ---
poison controlled called and info being sent
[2019-08-10 10:26] LABS: Alveolar-Arterial Oxygen Gradi 580.8 mmHg (5-10); Arterial Blood Gas Hematocrit 34.9 % (42-52); Base Excess ABG -6.2 mmol/L (-2.0-2.0); Blood Gas Allen Test Pos; Blood Gas Sample Site Radial, right; Blood Gas Sample Type Arterial; Blood Gas Tidal Volume 0.45; Carboxyhemoglobin 1.2 %THgb (0.4-20.1); HCO3 ABG 23.1 mmol/L (22-26); HGB O2 Sat 68.6 % (95-100); Ionized Calcium Level - ABG 1.1 mmol/L (1.1-1.4); Methemoglobin 0.7 % (0.4-1.5); PO2 ABG 44.3 mmHg (80.0-100.0); Potassium Level - ABG 2.7 mmol/L (3.5-5.0); Total Hemoglobin 11.4 g/dL (14-18)
[2019-08-10 10:27] LABS: ABG PCO2 64.4 mmHg (35-45); ABG PH Result 7.16 (7.35-7.45)
[2019-08-10 10:34] LABS: Add Urine Microscopic? NO
[2019-08-10 10:36] LABS: Basophils % 0.2 %; Eosinophils % 0.2 %; Hematocrit 43.8 % (42.0-52.0); Hemoglobin 14.6 g/dL (11.7-16.6); Lymphocytes # 0.4 10^3/uL (0.8-4.8); Lymphocytes % 9.9 %; Mean Corpuscular HGB Conc 33.3 g/dL (30.0-36.0); Mean Corpuscular Hemoglobin 31.1 pg (28.0-34.0); Mean Corpuscular Volume 93.2 fL (80-94); Monocytes # 0.1 10^3/uL (0.2-0.9); Monocytes % 2.7 %; Neutrophils # 3.6 10^3/uL (1.8-7.7); Nucleated Red Blood Cells % 0 %; Platelet Count 303 10^3/cmm (130-400); Red Cell Distribution Width 11.9 % (12.1-15.1); White Blood Count 4.1 10^3/uL (4.0-10.0)
[2019-08-10 10:42] LABS: Urine Appearance Clear (CLEAR); Urine Color Yellow (Yellow)
[2019-08-10 10:43] LABS: Bilirubin Urine Neg (NEGATIVE); Blood Urine Neg (Negative); Glucose Urine UA Norm (Normal); Ketones Urine 1+ (Negative); Leukocyte Esterase Urine Negative (Negative); Nitrate Urine Negative (Negative); Protein Urine Neg (Negative); Specific Gravity, Urine 1.025 (1.005-1.030); Urobilinogen Urine Norm (Negative)
[2019-08-10 10:43] LABS: Ketone (Acetest) Serum Negative (Negative)
[2019-08-10 10:51] LABS: Amphetamines Screen Urine Positive (Negative); Barbiturates Screen Urine Negative (Negative); Benzodiazepines Screen Urine Negative (Negative); Cocaine Screen Urine Negative (Negative); Opiate Screen Urine Negative (Negative); PCP Screen Urine Negative (Negative); THC Screen Urine Negative (Negative)
[2019-08-10 10:52] LABS: Alanine Aminotransferase 12 U/L (0-41); Albumin Level 4.1 g/dL (3.5-5.2); Alkaline Phosphatase 86 IU/L (40-130); Anion Gap 13.6 (5-19); Aspartate Amino Transferase 14 U/L (0-40); Blood Urea Nitrogen 24 mg/dL (6-20); Calcium 8.9 mg/dL (8.5-10.5); Carbon Dioxide 27 mmol/L (22-29); Chloride 102 mmol/L (98-107); Globulin 2.6 g/dL (1.3-4.6); Glomerular Filtration Rate 91.3 mL/min (90-130); Glucose 160 mg/dL (65-115); Lipase 8 U/L (13-60); Osmolality Calculated 288 mOsm/kg (285-295); Potassium 3.6 mmol/L (3.5-5.1); Sodium 139 mmol/L (136-145); Total Bilirubin 0.5 mg/dL (0.15-1.2); Total Protein 6.7 g/dL (6.6-8.7)
[2019-08-10 10:53] LABS: Troponin(5th) Baseline 6 ng/mL (0-15)
[2019-08-10 10:55] LABS: Acetaminophen < 5.0 ug/mL (10-30); Alcohol Level < 10 mg/dL (0-10); Salicylate < 0.3 mg/dL (3-10)
[2019-08-10] MEDS: clindamycin 900 MG/50 ML PREMIX 100 MG IV (11:02)
[2019-08-10 12:13] LABS: Creatine Phosphokinase 197 U/L (39-308)
[2019-08-10 12:20] LABS: Influenza A by IFA Negative (Negative); Influenza B by IFA Negative (Negative)
[2019-08-10 12:24] LABS: Troponin 5 2HR Delta 0 ABS# (0-10)
--- NOTE | 2019-08-10 12:24 | ECG_ITS ---
Measurements Intervals [place] Rate: 91 P: 56 DC: 209 QRS: 99 QRSD: 92 T: 63 QT: 375 QTc: 462 SINUS RHYTHM BORDERLINE RIGHT AXIS DEVIATION [QRS AXIS > 90] NONSPECIFIC T-WAVE ABNORMALITY No previous ECG available for comparison Electronically Signed On 08-10-2019 18:15:15 CDT by Abhay Bird M.D. [id number] f
--- NOTE | 2019-08-10 12:43 | PC.NURSE ---
Pt presents to ED via ems for found down in park by bystanders. Pt arrives ed intubated by ems, iv access obtained. pt suspected overdose. pt is pale and cold to the touch. pt does have pulses. ems bagging patient with bvm on arrival to ed. pt placed on ekg monitor tech and pulse ox. rn nurse took over bagging pt until respiratory arrives. ems states that they did give narcan with no changes. additional iv access obtained. ariza cath placed. pt moved over to ventilation by respiratory. ng tube placed into right nare. rectal temp obtained, 88.6. bare hugger placed on top of patient. contact/droplet precautions taken with patient. will continue to monitor.
[2019-08-10 13:03] LABS: ABG PCO2 56.2 mmHg (35-45); ABG PH Result 7.29 (7.35-7.45); Alveolar-Arterial Oxygen Gradi 420.7 mmHg (5-10); Arterial Blood Gas Hematocrit 44.1 % (42-52); Base Excess ABG -0.7 mmol/L (-2.0-2.0); Blood Gas Allen Test Pos; Blood Gas Operator Identificat amh; Blood Gas Sample Site Radial, right; Blood Gas Sample Type Arterial; Blood Gas Tidal Volume 0.45; Carboxyhemoglobin 0.6 %THgb (0.4-20.1); Ionized Calcium Level - ABG 1.2 mmol/L (1.1-1.4); Methemoglobin 0.8 % (0.4-1.5); Oxygen Device VENT; Oxygen Saturation ABG 93.3; PO2 ABG 71.6 mmHg (80.0-100.0); Potassium Level - ABG 3.9 mmol/L (3.5-5.0); Total Hemoglobin 14.4 g/dL (14-18)
--- NOTE | 2019-08-10 13:10 | P.HP_ITS ---
Providers/Chief Complaint Admitting Physician: Se Hdz MD Chief Complaint: POSSIBLE DRUG OVERDOSE/ UNRESPONSIVE History of Present Illness Marty Islas Jr is a 43 year old male presented to ED via EMS after he was noted to collapse by police department. EMS intubated patient on the scene with evidence of large amount of food aspiration. Patient was hypoxic and hypercapnic in severe respiratory acidosis and hypothermic. We currently do not have any other information except patient showed up at his mother's place [address] ago despite having court restriction order and mother suspected patient being under methamphetamine influence which he frequently uses. This information was provided by Dr. Clark. Patient was started on fluids and norepinephrine drip because he was hypotensive. He was started on clindamycin for treatment of aspiration pneumonia. During my evaluation in emergency department patient is i ntubated and sedated. His pupils are equal and approximately 2-1/2 mm bilaterally. He has bear hugger on. He is on 80% FiO2 with PEEP of 10 saturating in the mid 90s. He has dark urine in the Bonds bag. His heart is regular and lungs are clear. Abdomen is soft and does not appear to be surgica l. His blood gas improved on repeat ABG. He was discharged approximately 6 days ago from neuropsychiatric unit where he presented with suicidal ideation. 10 days prior to that patient was again discharged after evaluation and treatment for suicidal ideation. At the scene empty bottle of citalopram was noted. Patient refilled on 07/24. Details unknown. No QT prolongation on EKG. Some nonspecific ST changes noted. Initial troponin is unremarkable along with CK. Review of Systems Narrative: Unable to obtain due to patient's mental status Medications/Allergies Allergies Allergy/AdvReac Type Severity Reaction Status Date / Time penicillin V Allergy Unknown Verified 07/25/19 15:45 Penicillins Allergy Unknown Verified 07/25/19 15:45 PFSH Acute PFSH: Social History Smoking and tobacco status: unknown if ever smoked Last substance use date: 07/21/19 Vitals/I&O/Wt Last Vital Signs Temp 89.6 F L 08/10/19 11:50 Pulse 94 08/10/19 12:30 Resp 30 H 08/10/19 12:30 BP 98/64 08/10/19 12:30 Pulse Ox 94 08/10/19 12:30 Weight last 48 hrs Weight 68.039 kg Physical Exam Const: COMMON NORMALS: no apparent distress HENMT: COMMON NORMALS: normocephalic and head/scalp atraumatic HEAD & SCALP: normocephalic and atraumatic Eye: COMMON NORMALS: conjunctivae normal and no scleral icterus CONJUNCTIVA: Yes conjunctivae normal Neck/C-Spine: COMMON NORMALS: no lymphadenopathy Lymph: LYMPHATIC: no lymphadenopathy noted Chest: COMMONS NORMALS: palpation of chest normal Resp: COMMON NORMALS: clear to auscultation bilaterally AUSCULTATION: clear to auscultation bilaterally Cardio: COMMON NORMALS: regular rate, regular rhythm and no murmurs RATE: regular rate RHYTHM: regular rhythm OTHER: No lower extremity edema GI: COMMON NORMALS: soft to palpation PALPATION: Yes soft RECTAL EXAM: Yes deferred : COMMON NORMALS: Yes no hernias present PENIS: circumcised Extremity: COMMON NORMALS: normal to inspection and normal capillary refill Neuro: SENSORIUM/ORIENTATION: Yes alert MENINGEAL SIGNS: Yes no meningeal signs OTHER: Neurological exam is limited but does not appear to have motor deficit on gross examination. Skin: COMMON NORMALS: no rashes or lesions noted GENERAL SKIN EXAM: no rashes or lesions noted Urinary Catheter Management^: Bonds: Cath Placed During This Visit: yes Urinary Catheter Date of Insertion: 08/10/19 Urinary Catheter Time of Insertion: 10:25 Data : 08/10/19 10:02 08/10/19 10:02 A&P Assessment and plan (1) Acute respiratory failure with hypoxia and hypercapnia: Status: Acute (2) Aspiration pneumonia due to food (regurgitated): Status: Acute (3) Altered mental status associated with intoxication: Status: Acute (4) Methamphetamine dependence: Status: Acute (5) Intentional overdose of drug in tablet form: Status: Acute Additional A&P Information Admit to ICU. Start patient Levaquin and Flagyl. Continue IV fluids and wean off norepinephrine as blood pressure permits. Titrate oxygen as needed. If we continue to have difficulty with oxygenation we may require bronchoscopy. Monitor ins and outs Trend cardiac enzymes. Awaiting COVID19 results Attestations Medical Necessity Statement*: Patient with respiratory failure requires close ICU monitoring and treatment. I expect patient will require more than 2 midnights. Time Spent in Patient Care: Greater than 35 minutes Coding Level of Care Code Acute Industrial Locomotive Operator for Chg Fwd Diagnoses Acute respiratory failure with hypoxia and hypercapnia J96.01; J96.02 Aspiration pneumonia due to food (regurgitated) J69.0 Altered mental status associated with intoxication F10.959 Methamphetamine dependence F15.20 Intentional overdose of drug in tablet form T50.904X
[2019-08-10] MEDS: enoxaparin 40 mg/0.4 mL Syringe SUBCUT (15:21)
[2019-08-10] MEDS: pantoprazole 40 mg SDV IVP (15:21)
[2019-08-10] MEDS: metroNIDAZOLE IV 500 MG/100 ML PREMIX 100 MG IV ×2 (15:22→21:26)
[2019-08-10] MEDS: lactated ringers 1,000 ML 100 ML IV (15:22)
[2019-08-10] MEDS: levofloxacin-dextrose 5 % 750 MG/150 ML PREMIX 150 MG IV (15:22)
[2019-08-10 16:39] LABS: Troponin 5 6HR 7.39 ng/mL (0-15); Troponin 5 6HR Delta 1.39 ng/L (0-12)
[2019-08-10] MEDS: propofol 1,000 MG/100 ML INJ 12.2 MG IV (23:58)
[2019-08-11] VITALS (91 sets, daily range): BP systolic 86–114; BP diastolic 48–80; PULSE 70–107; RESP 0–28; TEMP 36.5–37.9; O2SAT 91–100
[2019-08-11] MEDS: lactated ringers 1,000 ML 100 ML IV ×2 (02:12→14:21)
[2019-08-11 05:00] LABS: Basophils % 0.2 %; Eosinophils % 0.1 %; Hematocrit 35.9 % (42.0-52.0); Hemoglobin 12.2 g/dL (11.7-16.6); Lymphocytes # 0.9 10^3/uL (0.8-4.8); Lymphocytes % 8.6 %; Mean Corpuscular Volume 91.1 fL (80-94); Mean Platelet Volume 10.5 fL (7.4-10.4); Monocytes # 0.5 10^3/uL (0.2-0.9); Monocytes % 5.3 %; Neutrophils # 8.5 10^3/uL (1.8-7.7); Neutrophils % 85.6 %; Nucleated Red Blood Cells % 0 %; Platelet Count 226 10^3/cmm (130-400); Red Blood Count 3.94 10^6/uL (4.1-5.3); Red Cell Distribution Width 12.3 % (12.1-15.1); White Blood Count 9.9 10^3/uL (4.0-10.0)
[2019-08-11 05:19] LABS: Magnesium 1.7 mg/dL (1.7-2.3); Phosphorus 3.5 mg/dL (2.5-4.5)
[2019-08-11 05:20] LABS: Alanine Aminotransferase 13 U/L (0-41); Albumin Level 3.1 g/dL (3.5-5.2); Alkaline Phosphatase 62 IU/L (40-130); Aspartate Amino Transferase 27 U/L (0-40); Blood Urea Nitrogen 15 mg/dL (6-20); Calcium 8.6 mg/dL (8.5-10.5); Carbon Dioxide 26 mmol/L (22-29); Chloride 102 mmol/L (98-107); Glomerular Filtration Rate 91.3 mL/min (90-130); Glucose 106 mg/dL (65-115); Osmolality Calculated 285 mOsm/kg (285-295); Sodium 139 mmol/L (136-145); Total Bilirubin 0.5 mg/dL (0.15-1.2); Total Protein 5.1 g/dL (6.6-8.7)
[2019-08-11 05:33] LABS: Slide Review Slide Review Perform
[2019-08-11] MEDS: metroNIDAZOLE IV 500 MG/100 ML PREMIX 100 MG IV ×3 (05:45→22:00)
[2019-08-11 05:56] LABS: ABG PCO2 43.9 mmHg (35-45); ABG PH Result 7.43 (7.35-7.45); Arterial Blood Gas Hematocrit 37.7 % (42-52); Base Excess ABG 4.3 mmol/L (-2.0-2.0); Blood Gas Allen Test Pos; Blood Gas Sample Site Radial, right; Blood Gas Sample Type Arterial; Blood Gas Tidal Volume 0.5; HCO3 ABG 29.2 mmol/L (22-26); Oxygen Device VENT
--- NOTE | 2019-08-11 06:03 | PC.NURSE ---
SHIFT SUMMARY PT HAS REMAINED SEDATED. PT WILL WAKE UP TO STIMULI, PT WILL FOLLOW COMMANDS TO SQUEEZE HANDS AT TIMES. PT HAS HAD ADEQUATE URINE OUTPUT. PT IVS REMAIN PATENT. PT HAS BEEN TURNED PERIODICALLY THROUGHOUT THE NIGHT. PT LUNGS ARE CLEAR AT TIMES AND COARSE/WHEEZY AT TIMES. ORAL CARE NEEDED.
[2019-08-11] MEDS: propofol 1,000 MG/100 ML INJ 12.2 MG IV (09:06)
--- NOTE | 2019-08-11 09:27 | P.PN_ITS ---
Subjective Subjective: Interval history: Patient is intubated and sedated. He had 1325 urinary output and continues to be hypotensive requiring Levophed drip. WBC is up to 9.9. He is requiring FiO2 40% and PEEP of 10 to saturating in the mid 90s. Vitals/I&O/Wt Last Vital Signs Temp 97.8 F 08/11/19 08:00 Pulse 74 08/11/19 08:00 Resp 16 08/11/19 08:00 BP 97/59 08/11/19 08:00 Pulse Ox 100 08/11/19 08:00 08/10/19 08/11/19 08/11/19 22:59 06:59 14:59 Intake Total 932.333 / 823.211 3981.134 / 2199.467 265.987 / 265.987 Output Total 800 / 800 525 / 1325 Balance 132.333 / 132.333 742.134 / 874.467 265.987 / 265.987 Weight last 48 hrs Weight 68.039 kg Physical Exam Const: COMMON NORMALS: no apparent distress Resp: OTHER: Intubated and sedated. Cardio: COMMON NORMALS: regular rate, regular rhythm and S2 normal heart sound RATE: regular rate RHYTHM: regular rhythm HEART SOUNDS: S2 normal OTHER: No lower extremity edema GI: COMMON NORMALS: normal to inspection, nondistended, normoactive bowel sounds, soft to palpation and non-tender PALPATION: Yes soft Neuro: COMMON NORMALS: no focal motor deficits Urinary Catheter Management^: Bonds: Cath Placed During This Visit: yes Urinary Catheter Date of Insertion: 08/10/19 Urinary Catheter Time of Insertion: 10:25 Data : 08/11/19 04:21 08/11/19 04:21 Micro: Microbiology 08/10/19 11:15 Gram Stain - Final Sputum - Endotracheal Tube Aspirate A&P Assessment and plan (1) Acute respiratory failure with hypoxia and hypercapnia: Status: Acute (2) Aspiration pneumonia due to food (regurgitated): Status: Acute (3) Altered mental status associated with intoxication: Status: Acute (4) Methamphetamine dependence: Status: Acute (5) Intentional overdose of drug in tablet form: Status: Acute Additional A&P Information Continue current antibiotics and increase IV fluids to 150 mL/h. Will interrupt sedation and evaluate patient's mental status. Awaiting COVID19 results. Patient will need to have psychiatric evaluation once extubated. Attestations Medical Necessity Statement*: Patient with respiratory failure requires close ICU monitoring and treatment. Coding Level of Care Code Acute Health Inspector Food for [employer] Fwd Diagnoses Acute respiratory failure with hypoxia and hypercapnia J96.01; J96.02 Aspiration pneumonia due to food (regurgitated) J69.0 Altered mental status associated with intoxication F10.959 Methamphetamine dependence F15.20 Intentional overdose of drug in tablet form T50.900M
[2019-08-11] MEDS: levofloxacin-dextrose 5 % 750 MG/150 ML PREMIX 150 MG IV (09:33)
--- NOTE | 2019-08-11 10:12 | PC.NURSE ---
Levafloacin ordered, paused LR to run antibiotic, restarting shortly. patient turned to left side, restraints loosened and skin checked, noted normal tinge, good pulses, refastened. patient pulled up, and adjusted to make comfortable. patient shifted arms and head a bit in response to turned and positioning.
[2019-08-11 10:23] LABS: Coronavirus Lab Test PTC NOT DETECTED
--- NOTE | 2019-08-11 12:48 | PC.RESP ---
Patient extubated at approximately 1238. Patient resting comfortably on 2lpm via nasal cannula. SPO2 98%
--- NOTE | 2019-08-11 13:01 | PC.NURSE ---
respiratory and i went into patient room to extubae him. he was suctioned a few times, still have very thick mucous. all tubes/ng as wel were pulled without a hitch, the patient stayed calm during the entire time. tubes came out at .:
--- NOTE | 2019-08-11 13:08 | PC.NURSE ---
restraints removed during extubation. patient calm tied, wanting something to drink. Dr. Hdz saw the patient, decided to put in a consult with Dr. Emanuel to come and talk to the patient here in ICU. Patient denied trying to harm or kill himself. Mr. Hdz said he could have something to eat.
[2019-08-11] MEDS: enoxaparin 40 mg/0.4 mL Syringe SUBCUT (14:23)
--- NOTE | 2019-08-11 16:49 | P.CONIM_ITS ---
Providers/Reason for Consult Consulting Physican/Specialty*: Bernardo Emanuel MD. Psychiatry. Reason for Consult*: Evaluation for lethality/safety for discharge. Attending Physician: Se Hdz MD Psych Consult HPI History of Present Illness Maryt Islas Jr is a 43 year old male who presented today reporting that he is not sure what happened. He was brought into the emergency room by EMS yesterday with reports that he was seen stumbling around and ended up collapsing. When he was brought to the emergency room he had aspiration and was unresponsive. He was admitted to the ICU for definitive medical treatment. He acknowledges that he relapsed right after he left the hospital. He reports that he was on his way to his mother's house where he plans to sleep in her car and that is the last thing he remembers. He reports that his plan was to follow-up with outpatient services and try to get his life together. He reports that his mother's relationship with him is strained. He denies any issues or need for psychiatric admission. He denies depression, anxiety, psychosis, or any other specific difficulties. He explicitly denied any suicidal thoughts or even a passive wish. He acknowledges that his addiction continues to be a problem but he denies any intentional ingestion. We reviewed his evaluation from last week which has been included in part below and he denies any substantive changes to his psychosocial history reporting it is fairly accurate. He endorses that he is essentially homeless but just stays with different friends to get by until he gets back on his feet. Per recent [facility] psych eval: HPI NPU History of Present Illness Marty Islas Jr is a 43 year old male who presents today reporting that he left the hospital but did not supervisor opening and picking his medication partially due to logistics. He reports that he lives with his mom and they have been fighting. He reports that she says things to him that just really pushes buttons and send him over the edge. The report is that the police confiscated the gun that he had. He reports that can be confirmed. He reports that he wants to leave his son as he can but he has no plan to go back to his mom's at this point. He was asked [place] whether his desire to leave quickly was the goal and harm himself or harm his mother and he denied that. He reports that since he left the hospital that he has used methamphetamine again he reports that that happened on Wednesday. He reports that the medication had been helpful and he probably would be in a better situation had he continued it. He endorses 1 suicide attempt last December. Otherwise he denies that being a problem. He reports that he feels better and thinks that the resumption of the medication will do the trick and him not going directly back to mom's place. Psychiatric history: As above. This is his third hospitalization and they have all been here at [facility]. He denies having significant medication trials. Substance abuse history: He endorses smoking about half a pack of cigarettes a day. He does not drink alcohol with any regularity. He denies marijuana use. He denies current cocaine him opiate use. He reports the methamphetamine use has been a problem for a while. [facility] is [facility]. And he endorses having a DWI 10 years ago. Family history: He endorses some mental health issues in his family but he is not really sure how extensive. He endorses significant addiction issues on both sides of the family. And reports that his paternal uncle committed suicide. Developmental history: He denies any issues with his mom's or delivery of him. He reports he learned to walk and talk and met his developmental milestones on time. He reports there was some speech therapy but denies learning support, emotional support or special education classes. Psychosocial history: He reports his mother and father were together when he was born and that he has an older sister was the product of that same relationship. He reports that his parents stayed together until his father 20 years ago. He has no half siblings. He reports that his childhood was like everybody else's. He denied any emotional, physical or sexual abuse. His highest grade he reached was the 11th grade but he did get his GED. He endorses being heterosexual with his longest relationship being 18 years. He is been 1 time and 1 time. He has 3 children a 17-year-old daughter, and a set of fraternal twins that are 14 a boy and a girl. He is never been in the denies any jew belief system. His longest work history was 15 years at [employer]. He was living with his mother and his maternal grandmother prior to coming in. Legal history: He reports he has been in [facility] multiple times but they were only overnight stays. Per recent evaluation: [facility] NPU History of Present Illness Marty Islas Jr is a 43 year old male with suicidal ideation ( I was going to shoot myself. ) and auditory/visual hallucinations with conversations with people who aren't there. The patient said he quit methamphetamine again the day before yesterday and started having suicidal ideation yesterday. Patient had attempted suicide last year by overdose. He has no chronic medical conditions. He smokes cigarettes and uses methamphetamines. He has not had any alcohol in a about a month. He seeks admission to the [facility] to get help and get on some medications. Review of Systems Narrative: General: Reports: 10 or more systems reviewed and unremarkable except in HPI and below Psych: Reports: visual/auditory hallucinations and suicidal ideation; Denies: homicidal ideation Meds NPU Home Medications Medication Instructions Recorded Confirmed Type No Known Home Medications 07/23/19 07/23/19 History Allergies Allergy/AdvReac Type Severity Reaction Status Date / Time Penicillins Allergy Unknown Verified 07/23/19 09:22 [facility] PFSH: Medical History (Updated 07/23/19 @ 20:15 by Devan Hartman) Polysubstance dependence in early, early partial, sustained full, or sustained partial remission Family History (Updated 07/23/19 @ 20:10 by Devan Hartman) Family/Other Psychiatric illness His dad's brothers (2) had problems with methamphetamine also. Social History (Updated 07/23/19 @ 09:25 by Linda Abad) Smoking and tobacco status: current every day smoker Substance/Drug Use: current Substance/Drug use type: Methamphetamine Last substance use date: 07/21/19 Other Psychiatric History: Other Psychiatric History: He had depression 2 years ago and was hospitalized here after attempting an overdose. Home Safety: Firearms in home: Yes Firearms unloaded and locked?: No Meds Current Medications: Current Medications Generic Name Dose Route Start Last Admin Trade Name Freq PRN Reason Stop Dose Admin Enoxaparin Sodium 40 mg 08/10/19 13:53 08/11/19 14:23 Lovenox SUBCUT 40 mg Q24H JEFFREY Administration Norepinephrine Bit artrate 4 mg 254 mls @ 0 mls/h r 08/10/19 10:15 08/11/19 06:02 / Dextrose IV 0.52 mcg/min .Q0M JEFFREY 2 mls/hr Titration Protocol Per Protocol Lactated Ringer's 1,000 mls @ 100 m ls/hr 08/10/19 13:53 08/11/19 14:21 Lactated Ringers IV 100 mls/hr .Q10H JEFFREY Administration Metronidazole 500 mg in 100 mls @ 100 mls/hr 08/10/19 13:53 08/11/19 14:28 Flagyl Iv IV 100 mls/hr Q8H JEFFREY Administration Protocol Propofol 1,000 mg in 100 m ls @ 0 mls/hr 08/10/19 14:00 08/11/19 09:06 Diprivan IV 30 mcg/kg/min .Q0M JEFFREY 12.2 mls/hr Administration Protocol Per Protocol Levofloxacin/Dextr ose 750 mg in 150 mls @ 150 mls/hr 08/11/19 09:30 08/11/19 14:45 Levaquin-D5w IV Infused Q24H JEFFREY Infusion Protocol PFSH NPU PFSH: Social History Smoking and tobacco status: unknown if ever smoked Last substance use date: 07/21/19 Mental Status Exam MSE Comments: This is a slender/underweight white male with a hospital gown on, limited grooming and adequate eye contact. No abnormal movements except for mild psychomotor retardation. Cooperative with exam in no acute distress. Speech was decreased rate and volume. Mood described as ok, affect slightly subdued. Thought process organized. Thought content: Patient denied any suicidal or homicidal ideations, there were no delusions reported or noted, he denied any auditory or visual hallucinations. Attention and concentration appeared intact and memory appeared unreliable but none were formally tested. He is alert and oriented x3. Insight and judgment are limited. Vitals/I&O/Wt Last Vital Signs Temp 98.1 F 08/11/19 16:00 Pulse 92 08/11/19 20:45 Resp 22 H 08/11/19 20:45 BP 90/52 08/11/19 20:45 Pulse Ox 96 08/11/19 20:45 08/11/19 08/11/19 08/11/19 06:59 14:59 22:59 Intake Total 1338.801 / 2271.134 1183.487 / 1183.487 250 / 1433.487 Output Total 525 / 1325 1400 / 1400 Balance 813.801 / 161.485 4154.487 / 1183.487 -1150 / 33.487 Weight last 48 hrs Weight 68.039 kg Home Medications citalopram 20 mg PO DAILY #30 tab 07/25/19 [Rx Confirmed 08/10/19] Active Medications Enoxaparin Sodium (Lovenox) 40 mg SUBCUT Q24H JEFFREY Last Admin: 08/11/19 14:23 Dose: 40 mg Documented by: Norepinephrine Bitartrate 4 mg (/ Dextrose) 254 mls @ 0 mls/hr IV .Q0M JEFFREY; Protocol Last Titration: 08/11/19 06:02 Dose: 0.52 mcg/min, 2 mls/hr Documented by: Lactated Ringer's (Lactated Ringers) 1,000 mls @ 100 mls/hr IV .Q10H JEFFREY Last Admin: 08/11/19 14:21 Dose: 100 mls/hr Documented by: Metronidazole (Flagyl Iv) 500 mg in 100 mls @ 100 mls/hr IV Q8H JEFFREY; Protocol Last Admin: 08/11/19 22:00 Dose: 100 mls/hr Documented by: Propofol (Diprivan) 1,000 mg in 100 mls @ 0 mls/hr IV .Q0M JEFFREY; Protocol Last Admin: 08/11/19 09:06 Dose: 30 mcg/kg/min, 12.2 mls/hr Documented by: Levofloxacin/Dextrose (Levaquin-D5w) 750 mg in 150 mls @ 150 mls/hr IV Q24H JEFFREY; Protocol Last Infusion: 08/11/19 14:45 Dose: Infused Documented by: Physical Exam Urinary Catheter Management^: Bonds: Cath Placed During This Visit: yes Urinary Catheter Date of Insertion: 08/10/19 Urinary Catheter Time of Insertion: 10:25 Data NPU Micro: Micro: Microbiology 08/10/19 11:15 Gram Stain - Final Sputum - Endotrac heal Tube Aspirate Sputum Culture - P reliminary Microbiology 08/10/19 11:15 Sputum - Endotracheal Tube Aspirate Gram Stain - Final 08/10/19 11:15 Sputum - Endotracheal Tube Aspirate Sputum Culture - Preliminary A&P Assessment and plan (1) Methamphetamine dependence: This is a 43-year-old white male with a long history of addiction and mental health difficulties who presented to the emergency room and was transferred to the ICU secondary to being noted to be out of sorts and possibly intoxicated and later being found unresponsive and brought to the emergency room who reports that he is unaware of what exactly happened, but he did relapse on methamphetamine, but he denies any active attempts to harm himself/kill himself. 1. Continue current medication. 2. Per his report there was no active intentional ingestion however there is some suggestion that his bottle of Celexa was empty. 3. We will await medical clearance and have a second conversation with him tomorrow. He was extubated at about 1 PM today so generally we like to have 24 hours post extubation for movement to the psychiatric unit. 4. Unclear at this point what this episode represents we will investigate further. 5. Continue one-to-one. Status: Acute (2) Major depressive disorder, recurrent episode with melancholic features: Status: Acute (3) Altered mental status associated with intoxication: Status: Acute (4) Parent-child relational problem: Status: Acute Involuntary Hold Information 96 Hour Hold: 96 Hour Involuntary Admission: Yes 96 Hour Hold Ending Date: 08/08/19 96 Hour Hold Ending Time: 20:18 Attestations NPU Medical Necessity Statement*: N/A. Defer determination for medical necessity at this point to the primary team. Would agree with monitoring for another 24 hours as we attempt to ascertain whether or not return to the neuro psych unit is indicated. At this point patient is denying any active lethality or any attempts to harm himself. Coding Level of Care Code Acute Election Watcher for Gaudencio Ng Diagnoses Methamphetamine dependence F15.20 Major depressive disorder, recurrent episode with melancholic features F33.9 Altered mental status associated with intoxication F10.959 Parent-child relational problem Z62.820
--- NOTE | 2019-08-11 20:49 | PC.NURSE ---
DR MARI PEDRAZA WAS CALLED AND ASK ABOUT PT WITH PSYCH CONSULT. HE STATED PT CAN GO TO [facility] IF NEEDED LONG HOSPITALIST AGREES. DR HALE WAS CALLED AND HE STATED PT CAN BE MOVED UPSTAIRS IF ICU NEEDS THE ROOM FOR CRITICAL PT. POISON CONTROL CALLED AND CHECKED ON PT AND WAS UPDATED.
--- NOTE | 2019-08-11 23:58 | PC.NURSE ---
DR HALE PUT IN TRANSFER ORDER TO MOVE TO [facility].
[2019-08-12] VITALS (8 sets, daily range): BP systolic 92–98; BP diastolic 38–62; PULSE 74–88; RESP 16–18; TEMP 36.4–37.6; O2SAT 90–98
[2019-08-12] MEDS: lactated ringers 1,000 ML 100 ML IV (00:30)
--- NOTE | 2019-08-12 01:03 | PC.NURSE ---
TRANSFER FROM ICU Received from ICU at 0020 via wheelchair. Alert and oriented. Weak upon transfer into bed. Denes pain or discomfort. Has a harsh cough that he reports to be productive. Denies SOB. IV fluids patent and infusing at 100ml/hr rate. VS check was done and oriented to new room.
[2019-08-12 05:47] LABS: Basophils % 0.2 %; Eosinophils # 0.1 10^3/uL (0.0-0.8); Eosinophils % 0.6 %; Hematocrit 33.7 % (42.0-52.0); Hemoglobin 11.1 g/dL (11.7-16.6); Lymphocytes % 10.2 %; Mean Corpuscular HGB Conc 32.9 g/dL (30.0-36.0); Mean Corpuscular Hemoglobin 30.7 pg (28.0-34.0); Mean Corpuscular Volume 93.4 fL (80-94); Mean Platelet Volume 10.4 fL (7.4-10.4); Monocytes # 0.5 10^3/uL (0.2-0.9); Monocytes % 5.3 %; Neutrophils # 7.8 10^3/uL (1.8-7.7); Neutrophils % 83.2 %; Nucleated Red Blood Cells % 0 %; Platelet Count 201 10^3/cmm (130-400); Red Blood Count 3.61 10^6/uL (4.1-5.3); Red Cell Distribution Width 12.6 % (12.1-15.1); White Blood Count 9.4 10^3/uL (4.0-10.0)
[2019-08-12] MEDS: metroNIDAZOLE IV 500 MG/100 ML PREMIX 100 MG IV ×3 (06:04→20:55)
[2019-08-12 06:06] LABS: Alanine Aminotransferase 18 U/L (0-41); Albumin Level 2.8 g/dL (3.5-5.2); Alkaline Phosphatase 79 IU/L (40-130); Anion Gap 11.8 (5-19); Aspartate Amino Transferase 35 U/L (0-40); Blood Urea Nitrogen 14 mg/dL (6-20); Calcium 8.6 mg/dL (8.5-10.5); Carbon Dioxide 25 mmol/L (22-29); Chloride 106 mmol/L (98-107); Globulin 2.5 g/dL (1.3-4.6); Glomerular Filtration Rate 91.3 mL/min (90-130); Glucose 87 mg/dL (65-115); Magnesium 1.9 mg/dL (1.7-2.3); Osmolality Calculated 284 mOsm/kg (285-295); Phosphorus 1.8 mg/dL (2.5-4.5); Potassium 3.8 mmol/L (3.5-5.1); Sodium 139 mmol/L (136-145); Total Bilirubin 0.3 mg/dL (0.15-1.2); Total Protein 5.3 g/dL (6.6-8.7)
[2019-08-12] MEDS: levofloxacin-dextrose 5 % 750 MG/150 ML PREMIX 150 MG IV (09:26)
--- NOTE | 2019-08-12 11:36 | PM.PN ---
Subjective Subjective: Interval history: Patient was transferred yesterday to [facility]. I would like to mention that the patient's restraints were discontinued after he was extubated. Reports feeling slightly better this morning. Reports having difficulty swallowing ever since he was extubated. Patient was seen by Dr. Emanuel. He denied any suicidal or homicidal ideations. He appears to be getting better. He denies significant cough. He denies chest pain or shortness of breath. Denies abdominal pain. He is still weak and somnolent. His blood pressure is soft and patient reports good urinary output. Vitals/I&O/Wt Last Vital Signs Temp 97.5 F L 08/12/19 08:00 Pulse 82 08/12/19 08:00 Resp 17 08/12/19 08:00 BP 94/50 08/12/19 08:27 Pulse Ox 90 08/12/19 08:00 08/11/19 08/12/19 08/12/19 22:59 06:59 14:59 Intake Total 375.933 / 2902.590 9621.667 / 3296.087 363.333 / 363.333 Output Total 1400 / 1400 700 / 2100 Balance -1024.067 / 899.797 6842.667 / 1196.087 363.333 / 363.333 Physical Exam Const: COMMON NORMALS: no apparent distress and oriented x3 Resp: COMMON NORMALS: normal respiratory effort and clear to auscultation bilaterally AUSCULTATION: clear to auscultation bilaterally Cardio: COMMON NORMALS: regular rate, regular rhythm and S2 normal heart sound RATE: regular rate RHYTHM: regular rhythm HEART SOUNDS: S2 normal OTHER: No lower extremity edema GI: COMMON NORMALS: normal to inspection, nondistended, normoactive bowel sounds, soft to palpation and non-tender PALPATION: Yes soft Neuro: COMMON NORMALS: oriented x3 and no focal motor deficits Urinary Catheter Management^: Bonds: Cath Placed During This Visit: yes Urinary Catheter Date of Insertion: 08/10/19 Urinary Catheter Time of Insertion: 10:25 Data : 08/12/19 05:19 08/12/19 05:19 Micro: Microbiology 08/10/19 11:15 Gram Stain - Final Sputum - Endotracheal Tube Aspirate Sputum Culture - Final A&P Assessment and plan (1) Acute respiratory failure with hypoxia and hypercapnia: Status: Acute (2) Aspiration pneumonia due to food (regurgitated): Status: Acute (3) Altered mental status associated with intoxication: Status: Acute (4) Methamphetamine dependence: Status: Acute (5) Intentional overdose of drug in tablet form: Status: Acute Additional A&P Information Continue current antibiotics and fluids. Will request speech therapy evaluation and repeat chest x-ray. We will add continuous pulse oximetry and continue telemetry monitoring. Once clinically cleared we may transfer to NPU if felt necessary by Dr. Emanuel. Attestations Medical Necessity Statement*: Patient with pneumonia and respiratory failure requires close inpatient monitoring and treatment. Coding Level of Care Code Acute Accordion Tuner for [facility] Fwd Diagnoses Acute respiratory failure with hypoxia and hypercapnia J96.01; J96.02 Aspiration pneumonia due to food (regurgitated) J69.0 Altered mental status associated with intoxication F10.959 Methamphetamine dependence F15.20 Intentional overdose of drug in tablet form T50.905T
--- NOTE | 2019-08-12 11:52 | XRR_ITS ---
PROCEDURE INFORMATION: Exam: XR Chest, 1 View Exam date and time: 08/12/2019 11:53 AM Age: 43 years old Clinical indication: Shortness of breath; Additional info: Pneumonia TECHNIQUE: Imaging protocol: XR of the chest Views: 1 view. COMPARISON: [place] XR chest 1V portable [id number] 08/10/2019 10:27 AM FINDINGS: Lungs: There is parenchymal densities in the right lower lobe consistent with pneumonia Pleural space: Unremarkable. No pleural effusion. No pneumothorax. Heart/Mediastinum: Unremarkable. No cardiomegaly. Bones/joints: Unremarkable. XR/XR chest 1V portable [id number] IMPRESSION: Right lower lobe pneumonia.
[2019-08-12] MEDS: enoxaparin 40 mg/0.4 mL Syringe SUBCUT (13:05)
--- NOTE | 2019-08-12 13:39 | P.PN_ITS ---
Subjective NPU Subjective: Interval history: Marty presents today continuing to hold to his story about the events of the day he was brought in. He continues to deny any lethality or desire to kill himself. He continues to report that he is struggling with his addiction and not wanting the use but not being effective in the process of avoidance and rejection of methamphetamine. We discussed that his plan once the treatment team decides that he is medically cleared and it is clear that he does not have 1. He not sure where he is going to go and we discussed the limited opportunities during this COVID 19 situation. He reports that he is eating okay and sleeping fine. He specifically denies an active overdose on celexa. Mental Status Exam MSE Comments: This is a slender/underweight white male with a hospital gown on, limited grooming and adequate eye contact. No abnormal movements except for mild psychomotor retardation. Cooperative with exam in no acute distress. Speech was decreased rate and volume. Mood described as ok, affect subdued. Thought process organized. Thought content: Patient denied any suicidal or homicidal ideations, there were no delusions reported or noted, he denied any auditory or visual hallucinations. Attention and concentration appeared intact and memory appeared unreliable but none were formally tested. He is alert and oriented x3. Insight and judgment are limited. Vitals/I&O/Wt Last Vital Signs Temperature 97.5, pulse 82, respirations 17, pulse ox 90, blood pressure 93/38. 08/12/19 08/12/19 14:59 22:59 Intake Total 803.333 / 803.333 340 / 1143.333 Output Total 750 / 750 Balance 803.333 / 803.333 -410 / 393.333 Home Medications citalopram 20 mg PO DAILY #30 tab 07/25/19 [Rx Confirmed 08/10/19] Active Medications Enoxaparin Sodium (Lovenox) 40 mg SUBCUT Q24H JEFFREY Last Admin: 08/12/19 13:05 Dose: 40 mg Documented by: Lactated Ringer's (Lactated Ringers) 1,000 mls @ 100 mls/hr IV .Q10H JEFFREY Last Admin: 08/13/19 01:29 Dose: 100 mls/hr Documented by: Metronidazole (Flagyl Iv) 500 mg in 100 mls @ 100 mls/hr IV Q8H JEFFREY; Protocol Last Admin: 08/13/19 05:08 Dose: 100 mls/hr Documented by: Levofloxacin/Dextrose (Levaquin-D5w) 750 mg in 150 mls @ 150 mls/hr IV Q24H [facility]; Protocol Last Admin: 08/12/19 09:26 Dose: 150 mls/hr Documented by: Physical Exam Urinary Catheter Management^: Bonds: Cath Placed During This Visit: yes Urinary Catheter Date of Insertion: 08/10/19 Urinary Catheter Time of Insertion: 10:25 Data NPU : 08/12/19 05:19 08/12/19 05:19 Micro: Microbiology 08/10/19 11:15 Gram Stain - Final Sputum - Endotracheal Tube Aspirate Sputum Culture - Final Microbiology 08/10/19 11:15 Sputum - Endotracheal Tube Aspirate Gram Stain - Final 08/10/19 11:15 Sputum - Endotracheal Tube Aspirate Sputum Culture - Final A&P Additional A&P Information (1) Methamphetamine dependence: This is a 43-year-old white male with a long history of addiction and mental health difficulties who presented to the emergency room and was transferred to the ICU secondary to being noted to be out of sorts and possibly intoxicated and later being found unresponsive and brought to the emergency room who reports that he is unaware of what exactly happened, but he did relapse on methamphetamine, but he denies any active attempts to harm himself/kill himself. 1. Continue current medication. 2. Agree with no need for 1 to 1 and unclear that inpatient psychiatric care is needed or indicated 3. Will discuss discharge planning with primary team as a short psychiatric stay may be indicated if limited ability for a safe discharge option exists when he is medically cleared. (2) Major depressive disorder, recurrent episode with melancholic features: (3) Altered mental status associated with intoxication: (4) Parent-child relational problem: Involuntary Hold Information 96 Hour Hold: 96 Hour Involuntary Admission: Yes 96 Hour Hold Ending Date: 08/08/19 96 Hour Hold Ending Time: 20:18 Attestations NPU Medical Necessity Statement*: N/A. Defer determination for medical necessity at this point to the primary team. Would agree with monitoring for another 24 hours as we attempt to ascertain whether or not return to the neuro psych unit is indicated. At this point patient is denying any active lethality or any attempts to harm himself. Coding Level of Care Code Acute Photoengraving Apprentice for Chg Fwd
[2019-08-13] VITALS (8 sets, daily range): BP systolic 94–102; BP diastolic 53–65; PULSE 62–81; RESP 16–18; TEMP 36.9–37.3; O2SAT 91–97
[2019-08-13] MEDS: lactated ringers 1,000 ML 100 ML IV (01:29)
[2019-08-13] MEDS: metroNIDAZOLE IV 500 MG/100 ML PREMIX 100 MG IV ×3 (05:08→21:45)
[2019-08-13 05:59] LABS: Basophils % 0.2 %; Eosinophils # 0.1 10^3/uL (0.0-0.8); Eosinophils % 1.3 %; Hematocrit 35.6 % (42.0-52.0); Hemoglobin 12.1 g/dL (11.7-16.6); Lymphocytes # 0.9 10^3/uL (0.8-4.8); Lymphocytes % 10.1 %; Mean Corpuscular Hemoglobin 31.7 pg (28.0-34.0); Mean Corpuscular Volume 93.2 fL (80-94); Mean Platelet Volume 10.8 fL (7.4-10.4); Monocytes # 0.4 10^3/uL (0.2-0.9); Monocytes % 4.6 %; Neutrophils # 7.1 10^3/uL (1.8-7.7); Neutrophils % 83.4 %; Nucleated Red Blood Cells % 0 %; Platelet Count 219 10^3/cmm (130-400); Red Blood Count 3.82 10^6/uL (4.1-5.3); Red Cell Distribution Width 12.6 % (12.1-15.1); White Blood Count 8.5 10^3/uL (4.0-10.0)
[2019-08-13 06:15] LABS: Alanine Aminotransferase 14 U/L (0-41); Albumin Level 2.8 g/dL (3.5-5.2); Alkaline Phosphatase 74 IU/L (40-130); Anion Gap 13.1 (5-19); Aspartate Amino Transferase 25 U/L (0-40); Blood Urea Nitrogen 13 mg/dL (6-20); Calcium 8.7 mg/dL (8.5-10.5); Carbon Dioxide 24 mmol/L (22-29); Chloride 105 mmol/L (98-107); Globulin 2.7 g/dL (1.3-4.6); Glomerular Filtration Rate 104.5 mL/min (90-130); Glucose 90 mg/dL (65-115); Magnesium 1.9 mg/dL (1.7-2.3); Osmolality Calculated 282 mOsm/kg (285-295); Phosphorus 3.1 mg/dL (2.5-4.5); Potassium 4.1 mmol/L (3.5-5.1); Sodium 138 mmol/L (136-145); Total Bilirubin 0.3 mg/dL (0.15-1.2); Total Protein 5.5 g/dL (6.6-8.7)
[2019-08-13] MEDS: levofloxacin-dextrose 5 % 750 MG/150 ML PREMIX 150 MG IV (08:32)
--- NOTE | 2019-08-13 12:31 | P.PN_ITS ---
Subjective Subjective: Interval history: Patient reports feeling much better. And denies chest pain or abdominal pain. He is breathing much improved. He continues to have cough which is now dry. His vitals are now stable. [facility] They cannot accept him today. Vitals/I&O/Wt Last Vital Signs Temp 98.7 F 08/13/19 11:33 Pulse 71 08/13/19 11:33 Resp 16 08/13/19 11:33 BP 101/65 08/13/19 11:33 Pulse Ox 93 08/13/19 11:33 08/12/19 08/13/19 08/13/19 22:59 06:59 14:59 Intake Total 450 / 1403.333 220 / 1623.333 530 / 530 Output Total 750 / 750 1100 / 1850 Balance -300 / 653.333 -880 / -226.667 530 / 530 Physical Exam Const: COMMON NORMALS: no apparent distress and oriented x3 Resp: COMMON NORMALS: normal respiratory effort and clear to auscultation bilaterally AUSCULTATION: clear to auscultation bilaterally Cardio: COMMON NORMALS: regular rate, regular rhythm and S2 normal heart sound RATE: regular rate RHYTHM: regular rhythm HEART SOUNDS: S2 normal OTHER: No lower extremity edema GI: COMMON NORMALS: normal to inspection, nondistended, normoactive bowel sounds, soft to palpation and non-tender PALPATION: Yes soft Neuro: COMMON NORMALS: oriented x3 and no focal motor deficits Urinary Catheter Management^: Bonds: Cath Placed During This Visit: yes Urinary Catheter Date of Insertion: 08/10/19 Urinary Catheter Time of Insertion: 10:25 Data : 08/13/19 05:09 08/13/19 05:09 Micro: Microbiology 08/10/19 11:15 Gram Stain - Final Sputum - Endotracheal Tube Aspirate Sputum Culture - Final A&P Assessment and plan (1) Acute respiratory failure with hypoxia and hypercapnia: Status: Acute (2) Aspiration pneumonia due to food (regurgitated): Status: Acute (3) Altered mental status associated with intoxication: Status: Acute (4) Methamphetamine dependence: Status: Acute (5) Intentional overdose of drug in tablet form: Status: Acute Additional A&P Information Continue current antibiotics but discontinue IV fluids. If okay from neuropsychiatric standpoint we can dismiss patient to recovery house tomorrow if continues to improve from medical standpoint. Patient will need to have Levaquin and Flagyl for 1 more week. Bonds catheter removed. Attestations Medical Necessity Statement*: With respiratory failure, pneumonia and methamphetamine abuse requires close inpatient monitoring and treatment until he can be dismissed to recovery house tomorrow. Coding Level of Care Code Acute Information Clerk Cashier for Gaudencio Shahd Diagnoses Acute respiratory failure with hypoxia and hypercapnia J96.01; J96.02 Aspiration pneumonia due to food (regurgitated) J69.0 Altered mental status associated with intoxication F10.959 Methamphetamine dependence F15.20 Intentional overdose of drug in tablet form T50.908G
[2019-08-13] MEDS: enoxaparin 40 mg/0.4 mL Syringe SUBCUT (12:39)
--- NOTE | 2019-08-13 13:17 | PM.NPN ---
Subjective NPU Subjective: Interval history: Marty presents today reporting that he is unsure what he is going to the IV antibiotics. We discussed whether or not he was in need of an inpatient hospitalization and he continues to deny any active behavior that led to this hospitalization and this bad outcome. We agreed that we would talk to the primary team to see when they would find him to be medically clear for discharge and make some decisions after that point. Mental Status Exam MSE Comments: This is a slender/underweight white male with a hospital gown on, limited grooming and adequate eye contact. No abnormal movements except for mild psychomotor retardation. Cooperative with exam in no acute distress. Speech was decreased rate and volume. Mood described as fine, affect subdued. Thought process organized. Thought content: Patient denied any suicidal or homicidal ideations, there were no delusions reported or noted, he denied any auditory or visual hallucinations. Attention and concentration appeared intact and memory appeared unreliable but none were formally tested. He is alert and oriented x3. Insight and judgment are limited. Vitals/I&O/Wt Last Vital Signs Temp 98.5 F 08/13/19 07:28 Pulse 81 08/13/19 07:28 Resp 16 08/13/19 07:28 BP 102/63 08/13/19 07:28 Pulse Ox 91 08/13/19 07:28 08/13/19 22:59 Intake Total 500 / 2370 Output Total 850 / 850 Balance -350 / 1520 Physical Exam Urinary Catheter Management^: Bonds: Cath Placed During This Visit: yes Urinary Catheter Date of Insertion: 08/10/19 Urinary Catheter Time of Insertion: 10:25 Data NPU : 08/14/19 05:50 08/13/19 05:09 A&P Additional A&P Information (1) Methamphetamine dependence: This is a 43-year-old white male with a long history of addiction and mental health difficulties who presented to the emergency room and was transferred to the ICU secondary to being noted to be out of sorts and possibly intoxicated and later being found unresponsive and brought to the emergency room who reports that he is unaware of what exactly happened, but he did relapse on methamphetamine, but he denies any active attempts to harm himself/kill himself. 1. Continue current medication. 2. Will discuss discharge planning with primary team as a short psychiatric stay may be indicated if limited ability for a safe discharge option exists when he is medically cleared. 3. Will consider whether keeping Celexa or changing to a different SSRI would be appropriate. (2) Major depressive disorder, recurrent episode with melancholic features: (3) Altered mental status associated with intoxication: (4) Parent-child relational problem: Involuntary Hold Information 96 Hour Hold: 96 Hour Involuntary Admission: Yes 96 Hour Hold Ending Date: 08/08/19 96 Hour Hold Ending Time: 20:18 Attestations NPU Medical Necessity Statement*: N/A. Defer determination for medical necessity at this point to the primary team. Would agree with monitoring for another 24 hours as we attempt to ascertain whether or not return to the neuro psych unit is indicated. At this point patient is denying any active lethality or any attempts to harm himself. Coding Level of Care Code Acute Environmental Protection Officer for Gaudencio Ng
[2019-08-14] VITALS (8 sets, daily range): BP systolic 92–104; BP diastolic 48–64; PULSE 61–73; RESP 17–18; TEMP 36.6–37.2; O2SAT 91–96
[2019-08-14] MEDS: metroNIDAZOLE IV 500 MG/100 ML PREMIX 100 MG IV (05:43)
[2019-08-14 06:01] LABS: Basophils % 0.5 %; Eosinophils # 0.1 10^3/uL (0.0-0.8); Eosinophils % 2.1 %; Hematocrit 37.4 % (42.0-52.0); Hemoglobin 12.6 g/dL (11.7-16.6); Lymphocytes # 1.1 10^3/uL (0.8-4.8); Lymphocytes % 17.9 %; Mean Corpuscular HGB Conc 33.7 g/dL (30.0-36.0); Mean Corpuscular Volume 92.1 fL (80-94); Mean Platelet Volume 10.2 fL (7.4-10.4); Monocytes # 0.5 10^3/uL (0.2-0.9); Monocytes % 7.9 %; Neutrophils # 4.3 10^3/uL (1.8-7.7); Neutrophils % 71.1 %; Nucleated Red Blood Cells % 0 %; Platelet Count 252 10^3/cmm (130-400); Red Blood Count 4.06 10^6/uL (4.1-5.3); Red Cell Distribution Width 12.2 % (12.1-15.1); White Blood Count 6.1 10^3/uL (4.0-10.0)
[2019-08-14] MEDS: levofloxacin-dextrose 5 % 750 MG/150 ML PREMIX 150 MG IV (09:50)
--- NOTE | 2019-08-14 10:59 | P.DS_ITS ---
Discharge Providers Date of Admission: 08/10/19 13:13 Date of Discharge: August 14, 2019 Attending Provider at Admission: Se Hdz MD Attending Provider at Discharge: Se Hdz MD Diagnoses at Discharge Discharge Diagnosis (1) Acute respiratory failure with hypoxia and hypercapnia: Status: Acute (2) Aspiration pneumonia due to food (regurgitated): Status: Acute (3) Altered mental status associated with intoxication: Status: Acute (4) Methamphetamine dependence: Status: Acute (5) Intentional overdose of drug in tablet form: Status: Acute (6) Tobacco abuse: Status: Acute Reason for Visit Reason for Visit: Reason For Visit: POSSIBLE DRUG OVERDOSE/ UNRESPONSIVE Hospital Course Discharge Summary: Patient was found with altered mental status after he was running around confused obviously under affect off illicit drug as by bystanders reported by police. He collapsed and was intubated by EMS on the scene. He had evidence of large amount of food aspiration and showed evidence of pneumonia on x-ray. He was started on antibiotics and fluids. He required pressor support initially in ICU. He gradually improved and was eventually extubated. He was evaluated by psychiatry service and denied being suicidal. He admits having methamphetamine addiction and agrees to have further placement to [facility] but unfortunately they can only accept him in 1 week. Case discussed with Dr. Emanuel and he agrees to keep patient in your psychiatric unit until then. We will continue Levaquin and Flagyl orally for 7 more days. Today patient denies any shortness of breath or chest pain. Reports good appetite and ambulates without difficulty. I had extensive discussion regarding importance of smoking cessation. Patient voiced understanding and agreed to have nicotine patch. EMR show that patient has Bonds catheter but he does not. Decision to start patient on antidepressant or other psychiatric medications will be made by Dr. Emanuel. Please regard this note as a progress note as patient being transferred to neuropsychiatric unit. Physical Exam Const: COMMON NORMALS: no apparent distress and oriented x3 Resp: COMMON NORMALS: normal respiratory effort and clear to auscultation bilaterally AUSCULTATION: clear to auscultation bilaterally Cardio: COMMON NORMALS: regular rate, regular rhythm and S2 normal heart sound RATE: regular rate RHYTHM: regular rhythm HEART SOUNDS: S2 normal OTHER: No lower extremity edema GI: COMMON NORMALS: normal to inspection, nondistended, normoactive bowel sounds, soft to palpation and non-tender PALPATION: Yes soft Neuro: COMMON NORMALS: oriented x3 and no focal motor deficits Urinary Catheter Management^: Bonds: Cath Placed During This Visit: yes Urinary Catheter Date of Insertion: 08/10/19 Urinary Catheter Time of Insertion: 10:25 Discharge Data Data Completed and Pending: Completed Studies During Hospitalization Category Date Time Status CT head wo con* 7 0450 Urgent Cat Scan 08/10/19 10:21 Completed XR chest 1V rogelio ble [id number] Routine Exams 08/12/19 11:52 Completed XR chest 1V rogelio ble [id number] Stat Exams 08/10/19 10:09 Completed Pending at discharge Category Date Time Status Arterial Blood Ga s Full Routine Lab 08/10/19 10:15 Results Labs from last 24 hours 08/14/19 05:50 WBC 6.1 RBC 4.06 L Hgb 12.6 Hct 37.4 L MCV 92.1 MCH 31.0 MCHC 33.7 RDW 12.2 Plt Count 252 MPV 10.2 Neut % (Auto) 71.1 Lymph % (Auto) 17.9 Falls % (Auto) 7.9 Eos % (Auto) 2.1 Baso % (Auto) 0.5 Neut # (Auto) 4.3 Lymph # (Auto) 1.1 Falls # (Auto) 0.5 Eos # (Auto) 0.1 Baso # (Auto) 0.0 Nucleated RBC % (a uto) 0 Nucleated RBCs # 0.0 Vitals: Last Vital Signs Temp 98.5 F 08/14/19 07:40 Pulse 73 08/14/19 08:37 Resp 18 08/14/19 07:40 BP 92/48 08/14/19 07:40 Pulse Ox 92 08/14/19 08:37 Discharge Plan Discharge Patient Disposition: Xfer Other Condition: Stable Prescriptions: New levofloxacin [Levaquin] 750 mg tablet 750 mg PO DAILY 7 Days Qty: 7 RF: 0 metronidazole [Flagyl] 500 mg tablet 500 mg PO Q8H 7 Days Qty: 21 RF: 0 nicotine 21 mg/24 hr patch 24 hour 1 patch TRANSDERMA DAILY 14 Days Qty: 14 RF: 0 No Action citalopram 20 mg Tablet 20 mg PO DAILY Qty: 30 RF: 3 Referrals: Sirisha Queen [Therapist] - 08/15/19 3:45 pm Bud Bravo MD [Physician] - 09/26/19 2:45 pm (Psychiatric evaluation) Discharge Diet: Usual diet Discharge Activity: Resume usual activity Activity Restrictions/Additional Instructions: Please call your doctor or present to emergency department if your condition worsens or you develop diarrhea. Please discuss with your primary care physician to have nicotine patch refill if you need more. Discharge Attestations Time Spent in Discharge Care*: other (Patient is being transferred to the neuropsychiatric unit. Time spent today was greater than 30 minutes.) Quality Metrics Clinical Quality Measures During this hospital stay, did patient experience: None Coding Level of Care Code Acute Student Finance Advisor for Chg Fwd Diagnoses Acute respiratory failure with hypoxia and hypercapnia J96.01; J96.02 Aspiration pneumonia due to food (regurgitated) J69.0 Altered mental status associated with intoxication F10.959 Methamphetamine dependence F15.20 Intentional overdose of drug in tablet form T50.902A Tobacco abuse Z72.0
--- NOTE | 2019-08-14 12:29 | PC.NURSE ---
Report called to NPU and given to TAMIA Madison
--- NOTE | 2019-08-14 14:36 | PM.NPN ---
Subjective NPU Subjective: Interval history: Marty presented today reporting that he is accepting the transfer to the neuro psych unit if necessary but he was fairly unenthused about his circumstances reporting that he is feeling pretty crappy is not really sure what exactly happened. It was unclear whether the accepting facility was going to take him or not and so he was not embracing the confusion. He continues to deny that there was a kelsey suicide attempt or that he overdosed on his medication. Mental Status Exam MSE Comments: This is a slender/underweight white male with a hospital gown on, limited grooming and adequate eye contact. No abnormal movements except for mild psychomotor retardation. Cooperative with exam in no acute distress. Speech was decreased rate and volume. Mood described as OK, affect subdued. Thought process organized. Thought content: Patient denied any suicidal or homicidal ideations, there were no delusions reported or noted, he denied any auditory or visual hallucinations. Attention and concentration appeared intact and memory appeared unreliable but none were formally tested. He is alert and oriented x3. Insight and judgment are limited. Vitals/I&O/Wt Last Vital Signs Temp 98.4 F 08/14/19 22:00 Pulse 68 08/14/19 22:00 Resp 17 08/14/19 22:00 BP 104/64 08/14/19 22:00 Pulse Ox 93 08/14/19 22:00 08/14/19 08/14/19 08/15/19 14:59 22:59 06:59 Intake Total 480 / 480 Output Total 325 / 325 Balance 155 / 155 Physical Exam Urinary Catheter Management^: Bonds: Cath Placed During This Visit: yes Urinary Catheter Date of Insertion: 08/10/19 Urinary Catheter Time of Insertion: 10:25 Data NPU : 08/14/19 05:50 08/13/19 05:09 A&P Additional A&P Information (1) Methamphetamine dependence: This is a 43-year-old white male with a long history of addiction and mental health difficulties who presented to the emergency room and was transferred to the ICU secondary to being noted to be out of sorts and possibly intoxicated and later being found unresponsive and brought to the emergency room who reports that he is unaware of what exactly happened, but he did relapse on methamphetamine, but he denies any active attempts to harm himself/kill himself. 1. Continue current medication. 2. Transfer to NPU when medically clear. 3. Will consider whether keeping Celexa or changing to a different SSRI would be appropriate. (2) Major depressive disorder, recurrent episode with melancholic features: (3) Altered mental status associated with intoxication: (4) Parent-child relational problem: Involuntary Hold Information 96 Hour Hold: 96 Hour Involuntary Admission: No Attestations NPU Medical Necessity Statement*: Inpatient hospitalization is medically necessary and the clinically appropriate intervention at this time to maintain stability for tranfer to receiving facility. We will adjust and add medications as indicated. Likely length of stay 7 days. Coding Level of Care Code Acute Server Assistant for Gaudencio Ng
[2019-08-14] MEDS: metroNIDAZOLE 500 MG Tablet PO ×2 (15:19→21:17)
[2019-08-14] MEDS: nicotine 21 mg Patch 1 PATCH TRANSDERMA (18:15)
[2019-08-14] MEDS: trazodone 50 mg Tablet PO (21:19)
--- NOTE | 2019-08-14 21:19 | PC.NURSE ---
pt given HS flagyl and prn trazodone at this time.
[2019-08-15 06:00] VITALS: BP 98/60; PULSE 59; RESP 16; TEMP 36.8; O2SAT 93
[2019-08-15] MEDS: levoFLOXacin 750 mg Tablet PO (06:00)
[2019-08-15] MEDS: metroNIDAZOLE 500 MG Tablet PO ×3 (09:08→21:02)
[2019-08-15 14:00] VITALS: BP 118/68; PULSE 60; RESP 16; TEMP 37; O2SAT 97
--- NOTE | 2019-08-15 15:52 | P.PN_ITS ---
Subjective NPU Subjective: Interval history: Marty presents today reporting that he is not really sure what is going on. We had a long discussion about what the facility that has pledged to accept him in six days now, reported, and they wanted to make sure that he is stable given his multiple hospitalizations, and likely wanting to have readings for COVID as well. He reports that he is feeling okay. When asked if he was feeling antsy and like he is wanting to leave, he did not say that but it certainly felt that way. He agreed he would work with social work to get a sense of what this place was like and what they had to offer, so that we make sure that this is appropriate placement. Especially given the fact that there is going to be some economic forgiveness in this process, so we want to make sure he is invested as well. So he reported that he would work with social work to get a real sense of what he is being referred to. Mental Status Exam MSE Comments: This is a slender, somewhat diminutive, white male, with limited dress, and adequate grooming and eye contact. No abnormal movements, except for mild psychomotor retardation. Cooperative with exam in no acute distress. Speech was limited and decreased rate and volume. Mood described as okay; affect subdued. Thought process, organized. Thought content: patient denied any suicidal or homicidal ideation, there were no delusions reported or noted, patient denied any auditory or visual hallucinations. Attention and concentrat ion appeared intact, and memory was somewhat unreliable, but none were formally tested. Alert and oriented times three. Insight and judgment are limited but improving. Vitals/I&O/Wt Last Vital Signs Temp 98.5 F 08/15/19 20:57 Pulse 54 L 08/15/19 20:57 Resp 18 08/15/19 20:57 BP 102/63 08/15/19 20:57 Pulse Ox 96 08/15/19 20:57 Physical Exam Urinary Catheter Management^: Bonds: Cath Placed During This Visit: yes Urinary Catheter Date of Insertion: 08/10/19 Urinary Catheter Time of Insertion: 10:25 Data NPU : 08/14/19 05:50 08/13/19 05:09 A&P Additional A&P Information (1) Methamphetamine dependence: This is a 43-year-old white male with a long history of addiction and mental health difficulties who presented to the emergency room and was transferred to the ICU secondary to being noted to be out of sorts and possibly intoxicated and later being found unresponsive and brought to the emergency room who reports that he is unaware of what exactly happened, but he did relapse on methamphetamine, but he denies any active attempts to harm himself/kill himself. 1. Continue current medication. 2. Encourage individual group and milieu therapy. 3. Will consider whether keeping Celexa or changing to a different SSRI would be appropriate. 4. Q 15 minute checks for safety. 5. Work with social work to get him connected with the program that has been initiated. (2) Major depressive disorder, recurrent episode with melancholic features: (3) Altered mental status associated with intoxication: (4) Parent-child relational problem: Involuntary Hold Information 96 Hour Hold: 96 Hour Involuntary Admission: No Attestations NPU Medical Necessity Statement*: Inpatient hospitalization is medically necessary and the clinically appropriate intervention at this time to maintain stability for tranfer to receiving facility. We will adjust and add medications as indicated. Likely length of stay 6 days. Coding Level of Care Code Acute Health Care Marketing Manager for Gaudencio Ng
[2019-08-15 20:57] VITALS: BP 102/63; PULSE 54; RESP 18; TEMP 36.9; O2SAT 96
[2019-08-15] MEDS: trazodone 50 mg Tablet PO (21:02)
--- NOTE | 2019-08-15 21:02 | PC.NURSE ---
pt given scheduled Flagyl and prn trazodone at this time per request.
[2019-08-16 06:00] VITALS: BP 104/67; PULSE 73; RESP 16; TEMP 36.4; O2SAT 95
[2019-08-16] MEDS: nicotine 21 mg Patch 1 PATCH TRANSDERMA (08:19)
[2019-08-16] MEDS: levoFLOXacin 750 mg Tablet PO (08:20)
[2019-08-16] MEDS: metroNIDAZOLE 500 MG Tablet PO ×3 (08:20→20:48)
[2019-08-16 14:00] VITALS: BP 100/64; PULSE 72; RESP 18; TEMP 36.9; O2SAT 97
--- NOTE | 2019-08-16 18:31 | P.PN_ITS ---
Subjective NPU Subjective: Interval history: Marty presents today reporting that he had an opportunity to talk to the organization that we had discussed. He endorses that the conversation went well and that he is hoping to possibly go to that program. Talked to the social workers and they agreed that went well, in their conversation with the team. We can plan on maybe a discharge towards Wednesday. They should have space ready for him and have all the economic and logistical things worked out. He and I discussed the risks, benefits, and alternatives of starting a new medication and discussed Prozac; he understood and agreed to proceed as is documented in this note. Mental Status Exam MSE Comments: This is a well-nourished, well-developed, white male, with adequate dress, grooming, and eye contact. No abnormal movements, except for mild psychomotor retardation, which is improving. Cooperative with exam in no acute distress. Speech was decreased rate and volume but improving. Mood described as okay; affect still subdued. Thought process, organized. Thought content: patient denied any suicidal or homicidal ideation, there were no delusions reported or noted, patient denied any auditory or visual hallucinations. Attention and concentration appeared intact, and memory was more reliable, but none were formally tested. He is alert and oriented times three. Insight and judgment are limited but improving. Vitals/I&O/Wt Last Vital Signs Temp 98.5 F 08/16/19 14:00 Pulse 72 08/16/19 14:00 Resp 18 08/16/19 14:00 BP 100/64 08/16/19 14:00 Pulse Ox 97 08/16/19 14:00 Physical Exam Urinary Catheter Management^: Bonds: Cath Placed During This Visit: yes Urinary Catheter Date of Insertion: 08/10/19 Urinary Catheter Time of Insertion: 10:25 Data NPU : 08/14/19 05:50 08/13/19 05:09 A&P Additional A&P Information (1) Methamphetamine dependence: This is a 43-year-old white male with a long history of addiction and mental health difficulties who presented to the emergency room and was transferred to the ICU secondary to being noted to be out of sorts and possibly intoxicated and later being found unresponsive and brought to the emergency room who reports that he is unaware of what exactly happened, but he did relapse on methamphetamine, but he denies any active attempts to harm himself/kill himself. 1. Continue current medication. 2. Encourage individual group and milieu therapy. 3. Will start Prozac in the morning. 4. Q 15 minute checks for safety. 5. Work with social work to get him connected with the program that has been initiated. (2) Major depressive disorder, recurrent episode with melancholic features: (3) Altered mental status associated with intoxication: (4) Parent-child relational problem: Involuntary Hold Information 96 Hour Hold: 96 Hour Involuntary Admission: No Attestations NPU Medical Necessity Statement*: Inpatient hospitalization is medically necessary and the clinically appropriate intervention at this time to maintain stability for tranfer to receiving facility. We will adjust and add medications as indicated. Likely length of stay 5 days. Coding Level of Care Code Acute Acoustical Tile Drill Press Operator for Gaudencio Ng
[2019-08-16] MEDS: trazodone 50 mg Tablet PO (20:48)
[2019-08-16 21:29] VITALS: BP 103/67; PULSE 66; RESP 18; TEMP 36.9; O2SAT 98
[2019-08-17 06:00] VITALS: BP 99/61; PULSE 64; RESP 16; TEMP 36.7; O2SAT 96
[2019-08-17] MEDS: levoFLOXacin 750 mg Tablet PO (06:24)
[2019-08-17] MEDS: metroNIDAZOLE 500 MG Tablet PO ×3 (08:10→20:41)
[2019-08-17] MEDS: fluoxetine 20 mg Capsule PO (08:10)
[2019-08-17 14:00] VITALS: BP 101/64; PULSE 63; RESP 20; TEMP 36.8; O2SAT 97
[2019-08-17] MEDS: acetaminophen 325 mg Tablet 650 MG PO (16:16)
--- NOTE | 2019-08-17 16:51 | PM.NPN ---
Subjective NPU Subjective: Interval history: Marty presents today reporting that he believes that this program that he has been accepted at presents 1 of his best chances for getting his life back on track. He reports he is optimistic and looking forward to that. He also reports he is looking forward to discharge on Wednesday morning because now that he is feeling better being here is fairly boring for him. He reports that the medication is going well and he is eating and sleeping fine. Mental Status Exam MSE Comments: This is a well-nourished, well-developed, white male, with adequate dress, grooming, and eye contact. No abnormal movements, except for mild psychomotor retardation, which is improving. Cooperative with exam in no acute distress. Speech was decreased rate and volume but improving. Mood described as bored but better; affect still subdued. Thought process, organized. Thought content: patient denied any suicidal or homicidal ideation, there were no delusions reported or noted, patient denied any auditory or visual hallucinations. Attention and concentration appeared intact, and memory was more reliable, but none were formally tested. He is alert and oriented times three. Insight and judgment are limited but improving. Vitals/I&O/Wt Last Vital Signs Temp 98.2 F 08/17/19 22:00 Pulse 61 08/17/19 22:00 Resp 18 08/17/19 22:00 BP 102/62 08/17/19 22:00 Pulse Ox 96 08/17/19 22:00 Physical Exam Urinary Catheter Management^: Bonds: Cath Placed During This Visit: yes Urinary Catheter Date of Insertion: 08/10/19 Urinary Catheter Time of Insertion: 10:25 Data NPU : 08/14/19 05:50 08/13/19 05:09 A&P Additional A&P Information (1) Methamphetamine dependence: This is a 43-year-old white male with a long history of addiction and mental health difficulties who presented to the emergency room and was transferred to the ICU secondary to being noted to be out of sorts and possibly intoxicated and later being found unresponsive and brought to the emergency room who reports that he is unaware of what exactly happened, but he did relapse on methamphetamine, but he denies any active attempts to harm himself/kill himself now. 1. Continue current medication. 2. Encourage individual group and milieu therapy. 3. Q 15 minute checks for safety. 4. Plan for discharge to this housing/sober living program Wednesday. (2) Major depressive disorder, recurrent episode with melancholic features: (3) Altered mental status associated with intoxication: (4) Parent-child relational problem: Involuntary Hold Information 96 Hour Hold: 96 Hour Involuntary Admission: No Attestations NPU Medical Necessity Statement*: Inpatient hospitalization is medically necessary and the clinically appropriate intervention at this time to maintain stability for tranfer to receiving facility. We will adjust and add medications as indicated. Likely length of stay 4 days.Plan for discharge to this housing/sober living program Wednesday and given his recent situation the medically appropriate approach will be to hold him until Wednesday to avoid relapse and squandering of this opportunity and a resource depleted period with Covid 19. Coding Level of Care Code Acute Oil Burner Journeyman for Gaudencio Ng
[2019-08-17] MEDS: trazodone 50 mg Tablet PO (20:41)
[2019-08-17 22:00] VITALS: BP 102/62; PULSE 61; RESP 18; TEMP 36.8; O2SAT 96
[2019-08-18 06:00] VITALS: BP 97/62; PULSE 57; RESP 17; TEMP 36.7; O2SAT 95
[2019-08-18] MEDS: levoFLOXacin 750 mg Tablet PO (06:06)
[2019-08-18] MEDS: fluoxetine 20 mg Capsule PO (08:23)
[2019-08-18] MEDS: metroNIDAZOLE 500 MG Tablet PO ×3 (08:39→20:38)
--- NOTE | 2019-08-18 10:01 | P.PN_ITS ---
Subjective NPU Subjective: Interval history: Marty presents today reporting that he is feeling decent. He reports that he is still dealing with the fact that he is feeling a lot better, but he is fairly bored given the lack of activities and the social distancing being used on the unit. He again expresses gratitude that he is going to have this opportunity to get things together with this program to which he was referred. He reports he is eating and sleeping better. Mental Status Exam MSE Comments: This is an underweight, white male, with adequate dress, grooming, and eye contact. No abnormal movements. Cooperative with exam in no acute distress. Speech was normal rate and volume. Mood described as getting better; affect congruent. Thought process, organized. Thought content: patient denied any suicidal or homicidal ideation, there were no delusions reported or noted, patient denied any auditory or visual hallucinations. Attention, concentration, and memory appeared intact but were not formally tested. Alert and oriented times three. Insight and judgment are limited but improving. Vitals/I&O/Wt Last Vital Signs Temp 97.9 F 08/18/19 19:35 Pulse 60 08/18/19 19:35 Resp 16 08/18/19 19:35 BP 102/67 08/18/19 19:35 Pulse Ox 99 08/18/19 19:35 Physical Exam Urinary Catheter Management^: Bonds: Cath Placed During This Visit: yes Urinary Catheter Date of Insertion: 08/10/19 Urinary Catheter Time of Insertion: 10:25 Data NPU : 08/14/19 05:50 08/13/19 05:09 A&P Additional A&P Information (1) Methamphetamine dependence: This is a 43-year-old white male with a long history of addiction and mental health difficulties who presented to the emergency room and was transferred to the ICU secondary to being noted to be out of sorts and possibly intoxicated and later being found unresponsive and brought to the emergency room who reports that he is unaware of what exactly happened, but he did relapse on methamphetamine, but he denies any active attempts to harm himself/kill himself now. 1. Continue current medication. 2. Encourage individual group and milieu therapy. 3. Q 15 minute checks for safety. 4. Plan for discharge to this housing/sober living program Wednesday. (2) Major depressive disorder, recurrent episode with melancholic features: (3) Altered mental status associated with intoxication: (4) Parent-child relational problem: Involuntary Hold Information 96 Hour Hold: 96 Hour Involuntary Admission: No Attestations NPU Medical Necessity Statement*: Inpatient hospitalization is medically necessary and the clinically appropriate intervention at this time to maintain stability for tranfer to receiving facility. We will adjust and add medications as indicated. Likely length of stay 3 days.Plan for discharge to this housing/sober living program Wednesday morning and given his recent situation the medically appropriate approach will be to hold him until Wednesday to avoid relapse and squandering of this opportunity and a resource depleted period with Covid 19. Coding Level of Care Code Acute Candy Decorator for Gaudencio Ng
[2019-08-18] MEDS: nicotine 21 mg Patch 1 PATCH TRANSDERMA (12:22)
[2019-08-18 14:00] VITALS: BP 99/61; PULSE 52; RESP 20; TEMP 36.8; O2SAT 99
[2019-08-18 19:35] VITALS: BP 102/67; PULSE 60; RESP 16; TEMP 36.6; O2SAT 99
[2019-08-18] MEDS: trazodone 50 mg Tablet PO (20:38)
--- NOTE | 2019-08-18 21:54 | PC.NURSE ---
PRN TRAZODONE PT REQUESTING SLEEP AID. TRAZODONE 50MG PO ADMINISTERED. WILL MONITOR FOR MEDICATION EFFECTIVENESS.
[2019-08-19 06:00] VITALS: BP 105/63; PULSE 51; RESP 16; TEMP 36.6; O2SAT 97
[2019-08-19] MEDS: levoFLOXacin 750 mg Tablet PO (06:10)
[2019-08-19] MEDS: fluoxetine 20 mg Capsule PO (08:15)
[2019-08-19] MEDS: metroNIDAZOLE 500 MG Tablet PO ×3 (08:15→20:55)
--- NOTE | 2019-08-19 11:42 | PM.NPN ---
Subjective NPU Subjective: Interval history: Marty presents today reporting that he is doing okay. He is bored but he is reporting feeling much better. He is feeling very optimistic about how things are going. He was inquisitive about what time he would be leaving on Wednesday. He reports that he feels the medication is working fine, and he is denying any side effects. He is eating and sleeping well. Mental Status Exam MSE Comments: This is an underweight, white male, with adequate dress, limited grooming, but appropriate eye contact. No abnormal movements. Cooperative with exam in no acute distress. Speech was more normal rate and volume. Mood described as much better/pretty good; affect congruent. Thought process, organized. Thought content: patient denied any suicidal or homicidal ideation, there were no delusions reported or noted, patient denied any auditory or visual hallucinations. Attention, concentration, and memory appeared intact but were not formally tested. He is alert and oriented times three. Insight and judgment are improving. Vitals/I&O/Wt Last Vital Signs Temp 97.8 F 08/19/19 06:00 Pulse 51 L 08/19/19 06:00 Resp 16 08/19/19 06:00 BP 105/63 08/19/19 06:00 Pulse Ox 97 08/19/19 06:00 Physical Exam Urinary Catheter Management^: Bonds: Cath Placed During This Visit: yes Urinary Catheter Date of Insertion: 08/10/19 Urinary Catheter Time of Insertion: 10:25 Data NPU : 08/14/19 05:50 08/13/19 05:09 A&P Additional A&P Information (1) Methamphetamine dependence: This is a 43-year-old white male with a long history of addiction and mental health difficulties who presented to the emergency room and was transferred to the ICU secondary to being noted to be out of sorts and possibly intoxicated and later being found unresponsive and brought to the emergency room who reports that he is unaware of what exactly happened, but he did relapse on methamphetamine, but he denies any active attempts to harm himself/kill himself now. 1. Continue current medication. 2. Encourage individual group and milieu therapy. 3. Q 15 minute checks for safety. 4. Plan for discharge to this housing/sober living program Wednesday. (2) Major depressive disorder, recurrent episode with melancholic features: (3) Altered mental status associated with intoxication: (4) Parent-child relational problem: Involuntary Hold Information 96 Hour Hold: 96 Hour Involuntary Admission: No Attestations NPU Medical Necessity Statement*: Inpatient hospitalization is medically necessary and the clinically appropriate intervention at this time to maintain stability for tranfer to receiving facility. We will adjust and add medications as indicated. Likely length of stay 2 days.Plan for discharge to this housing/sober living program Wednesday morning and given his recent situation the medically appropriate approach will be to hold him until Wednesday to avoid relapse and squandering of this opportunity and a resource depleted period with Covid 19. Coding Level of Care Code Acute Javascript Engineer for Gaudencio Ng
[2019-08-19 13:28] VITALS: BP 110/60; PULSE 70; RESP 17; TEMP 36.7; O2SAT 98
[2019-08-19 20:24] VITALS: BP 86/55; PULSE 65; RESP 16; TEMP 36.6; O2SAT 97
[2019-08-19] MEDS: trazodone 50 mg Tablet PO (21:17)
[2019-08-20 06:00] VITALS: BP 100/65; PULSE 63; RESP 18; TEMP 36.7; O2SAT 97
[2019-08-20] MEDS: levoFLOXacin 750 mg Tablet PO (06:23)
[2019-08-20] MEDS: metroNIDAZOLE 500 MG Tablet PO ×3 (08:55→20:58)
[2019-08-20] MEDS: fluoxetine 20 mg Capsule PO (08:56)
--- NOTE | 2019-08-20 09:03 | P.PN_ITS ---
Subjective NPU Subjective: Interval history: Marty presents today reporting that he is glad that he has come to the end of the road and that he gets to discharge tomorrow. We discussed a plan of how that would be approached and that I would have the paper work ready so that he could leave as soon as the social work team felt it was time for him to depart. He reports that it has been boring but worth it. He looks forward to the opportunity of the program starting tomorrow. He reports he is eating and sleeping fine. Mental Status Exam MSE Comments: This is an underweight, white male, with adequate dress, grooming, and eye contact. No abnormal movements. Cooperative with exam in no acute distress. Speech was normal rate and volume. Mood described as better; affect congruent. Thought process, organized. Thought content: patient denied any suicidal or homicidal ideation, there were no delusions reported or noted, patient denied any auditory or visual hallucinations. Attention, concentration, and memory appeared intact but were not formally tested. Alert and oriented times three. Insight and judgment are fair and improving. Vitals/I&O/Wt Last Vital Signs Temp 98.1 F 08/20/19 06:00 Pulse 63 08/20/19 06:00 Resp 18 08/20/19 06:00 BP 100/65 08/20/19 06:00 Pulse Ox 97 08/20/19 06:00 Weight last 48 hrs Weight 63.049 kg Physical Exam Urinary Catheter Management^: Bonds: Cath Placed During This Visit: yes Urinary Catheter Date of Insertion: 08/10/19 Urinary Catheter Time of Insertion: 10:25 Data NPU : 08/14/19 05:50 08/13/19 05:09 A&P Additional A&P Information (1) Methamphetamine dependence: This is a 43-year-old white male with a long history of addiction and mental health difficulties who presented to the emergency room and was transferred to the ICU secondary to being noted to be out of sorts and possibly intoxicated and later being found unresponsive and brought to the emergency room who reports that he is unaware of what exactly happened, but he did relapse on methamphetamine, but he denies any active attempts to harm himself/kill himself now. 1. Continue current medication. 2. Encourage individual group and milieu therapy. 3. Q 15 minute checks for safety. 4. Plan for discharge to this housing/sober living program Wednesday. (2) Major depressive disorder, recurrent episode with melancholic features: (3) Altered mental status associated with intoxication: (4) Parent-child relational problem: Involuntary Hold Information 96 Hour Hold: 96 Hour Involuntary Admission: No Attestations NPU Medical Necessity Statement*: Inpatient hospitalization is medically necessary and the clinically appropriate intervention at this time to maintain stability for tranfer to receiving facility. We will adjust and add medications as indicated. Plan for discharge to this housing/sober living program Wednesday jodi velez and given his recent situation the medically appropriate approach will be to hold him until Wednesday to avoid relapse and squandering of this opportunity and a resource depleted period with Covid 19. Coding Level of Care Code Acute Air Quality Consultant for Gaudencio Ng
[2019-08-20] MEDS: nicotine 21 mg Patch 1 PATCH TRANSDERMA (10:07)
[2019-08-20 13:10] VITALS: BP 110/70; PULSE 78; RESP 18; TEMP 36.6; O2SAT 98
[2019-08-20 20:57] VITALS: BP 96/60; PULSE 63; RESP 17; TEMP 37; O2SAT 97
[2019-08-20] MEDS: trazodone 50 mg Tablet PO (20:57)
[2019-08-21] MEDS: levoFLOXacin 750 mg Tablet PO (05:58)
[2019-08-21 06:00] VITALS: BP 99/55; PULSE 52; RESP 17; TEMP 36.6; O2SAT 98
--- NOTE | 2019-08-21 06:59 | PM.NDC ---
Diagnoses at Discharge Discharge Diagnosis (1) Acute respiratory failure with hypoxia and hypercapnia: Status: Resolved (2) Aspiration pneumonia due to food (regurgitated): Status: Resolved (3) Altered mental status associated with intoxication: Status: Acute (4) Methamphetamine dependence: Status: Acute (5) Intentional overdose of drug in tablet form: Status: Acute (6) Tobacco abuse: Status: Acute Reason for Visit Reason for Visit: Reason For Visit: POSSIBLE DRUG OVERDOSE/ UNRESPONSIVE Brief History: History of Present Illness Marty Islas Jr is a 43 year old male who presented today reporting that he is not sure what happened. He was brought into the emergency room by EMS yesterday with reports that he was seen stumbling around and ended up collapsing. When he was brought to the emergency room he had aspiration and was unresponsive. He was admitted to the ICU for definitive medical treatment. He acknowledges that he relapsed right after he left the hospital. He reports that he was on his way to his mother's house where he plans to sleep in her car and that is the last thing he remembers. He reports that his plan was to follow-up with outpatient services and try to get his life together. He reports that his mother's relationship with him is strained. He denies any issues or need for psychiatric admission. He denies depression, anxiety, psychosis, or any other specific difficulties. He explicitly denied any suicidal thoughts or even a passive wish. He acknowledges that his addiction continues to be a problem but he denies any intentional ingestion. We reviewed his evaluation from last week which has been included in part below and he denies any substantive changes to his psychosocial history reporting it is fairly accurate. He endorses that he is essentially homeless but just stays with different friends to get by until he gets back on his feet. [place] [facility] [place] [facility] History of Present Illness Marty Islas Jr is a 43 year old male who presents today reporting that he left the hospital but did not pepper picker his medication partially due to logistics. He reports that he lives with his mom and they have been fighting. He reports that she says things to him that just really pushes buttons and send him over the edge. The report is that the police confiscated the gun that he had. He reports that can be confirmed. He reports that he wants to leave his son as he can but he has no plan to go back to his mom's at this point. He was asked [place] whether his desire to leave quickly was the goal and harm himself or harm his mother and he denied that. He reports that since he left the hospital that he has used methamphetamine again he reports that that happened on Wednesday. He reports that the medication had been helpful and he probably would be in a better situation had he continued it. He endorses 1 suicide attempt last December. Otherwise he denies that being a problem. He reports that he feels better and thinks that the resumption of the medication will do the trick and him not going directly back to mom's place. Psychiatric history: As above. This is his third hospitalization and they have all [place] [facility] [place] He denies having significant medication trials. Substance abuse history: He endorses smoking about half a pack of cigarettes a day. He does not drink alcohol with any regularity. He denies marijuana use. He denies current cocaine him opiate use. He reports the methamphetamine use has been a problem for a while. He is currently in outpatient rehab at [facility]. And he endorses having a DWI 10 years ago. Family history: He endorses some mental health issues in his family but he is not really sure how extensive. He endorses significant addiction issues on both sides of the family. And reports that his paternal uncle committed suicide. Developmental history: He denies any issues with his mom's or delivery of him. He reports he learned to walk and talk and met his developmental milestones on time. He reports there was some speech therapy but denies learning support, emotional support or special education classes. Psychosocial history: He reports his mother and father were together when he was born and that he has an older sister was the product of that same relationship. He reports that his parents stayed together until his father 20 years ago. He has no half siblings. He reports that his childhood was like everybody else's. He denied any emotional, physical or sexual abuse. His highest grade he reached was the 11th grade but he did get his GED. He endorses being heterosexual with his longest relationship being 18 years. He is been 1 time and 1 time. He has 3 children a 17-year-old daughter, and a set of fraternal twins that are 14 a boy and a girl. He is never been in the denies any quaker belief system. His longest work history was 15 years at [employer]. He was living with his mother and his maternal grandmother prior to coming in. Legal history: He reports he has been in residential multiple times but they were only overnight stays. Per recent evaluation: [facility] NPU History of Present Illness Marty Islas Jr is a 43 year old male with suicidal ideation ( I was going to shoot myself. ) and auditory/visual hallucinations with conversations with people who aren't there. The patient said he quit methamphetamine again the day before yesterday and started having suicidal ideation yesterday. Patient had attempted suicide last year by overdose. He has no chronic medical conditions. He smokes cigarettes and uses methamphetamines. He has not had any alcohol in a about a month. He seeks admission to the NPU to get help and get on some medications. Review of Systems Narrative: General: Reports: 10 or more systems reviewed and unremarkable except in HPI and below Psych: Reports: visual/auditory hallucinations and suicidal ideation; Denies: homicidal ideation Meds NPU Home Medications Medication Instructions Recorded Confirmed Type No Known Home Medications 07/23/19 07/23/19 History Allergies Allergy/AdvReac Type Severity Reaction Status Date / Time Penicillins Allergy Unknown Verified 07/23/19 09:22 [facility] N[facility] PFS: Medical History (Updated 07/23/19 @ 20:15 by Devan Hartman) Polysubstance dependence in early, early partial, sustained full, or sustained partial remission Family History (Updated 07/23/19 @ 20:10 by Devan Hartman) Family/Other Psychiatric illness His dad's brothers (2) had problems with methamphetamine also. Social History (Updated 07/23/19 @ 09:25 by Linda Abad) Smoking and tobacco status: current every day smoker Substance/Drug Use: current Substance/Drug use type: Methamphetamine Last substance use date: 07/21/19 Other Psychiatric History: Other Psychiatric History: He had depression 2 years ago and was hospitalized here after attempting an overdose. Home Safety: Firearms in home: Yes Firearms unloaded and locked?: No Hospital Course Hospital Course Marty presented to the emergency room with EMS after being seen stumbling on the street and then being found unconscious. There had been some aspiration and he was admitted to the ICU, then stepdown to the MedSurg unit and then ultimately transferred to the neuro psych unit for definitive care. A program was discovered that would assist him greatly and finding a place of stability to try to address his recovery and he was allowed to be maintained on the neuro psych unit for 6 to 7 days. When he was discovered there was a bottle of Celexa which was empty and it should not have been, he reports that he may have sold the medication but concerns for overdose existed he was switched to Prozac and he tolerated that medication well and showed improvements. During the hospitalization he had routine laboratory studies which were within normal limits except for a few outliers. Additionally there was a general medical evaluation which was also within normal limits and revealed no new acute processes after he reached the neuro psych unit he had had significant medical issues/comorbidities when he was discovered on the streets unconscious and brought to the ICU. Discharge Summary At the time of discharge he denied any lethality and was absent psychosis. Mood and anxiety were well managed and he endorsed a plan to avoid all drugs of abuse and to follow-up with the recommended post hospital services. He was evaluated and deemed to be absent lethality and had received the maximum benefit from an inpatient hospitalization, so was discharged. Involuntary Hold Information 96 Hour Hold: 96 Hour Involuntary Admission: No Mental Status Exam MSE Comments: This is an underweight, white male, with adequate dress, grooming, and eye contact. No abnormal movements. Cooperative with exam in no acute distress. Speech was normal rate and volume. Mood described as pretty good; affect congruent. Thought process, organized. Thought content: patient denied any suicidal or homicidal ideation, there were no delusions reported or noted, patient denied any auditory or visual hallucinations. Attention, concentration, and memory appeared intact but were not formally tested. Alert and oriented times three. Insight and judgment are fair and improving. Physical Exam Urinary Catheter Management^: Bonds: Cath Placed During This Visit: yes Urinary Catheter Date of Insertion: 08/10/19 Urinary Catheter Time of Insertion: 10:25 Discharge Data Data Completed and Pending: Completed Studies During Hospitalization Category Date Time Status CT head wo con* 7 0450 Urgent Cat Scan 08/10/19 10:21 Completed XR chest 1V rogelio ble 13655 Routine Exams 08/12/19 11:52 Completed XR chest 1V rogelio ble [id number] Stat Exams 08/10/19 10:09 Completed Pending at discharge Category Date Time Status Arterial Blood Ga s Full Routine Lab 08/10/19 10:15 Results Vitals: Last Vital Signs Temp 97.9 F 04/13/20 06:00 Pulse 52 L 08/21/19 06:00 Resp 17 08/21/19 06:00 BP 99/55 08/21/19 06:00 Pulse Ox 98 08/21/19 06:00 Discharge Plan Discharge Patient Disposition: Xfer Other Condition: Stable Prescriptions: New fluoxetine 20 mg Capsule 20 mg PO DAILY 30 Days Qty: 30 RF: 1 Discontinued citalopram 20 mg Tablet 20 mg PO DAILY Qty: 30 RF: 3 Discharge Orders: Discharge Order (Routine); Ordered 08/21/19 Ordered By: Bernardo Emanuel Referrals: Sirisha Queen [Therapist] - 08/30/19 3:45 pm Bud Bravo MD [Physician] - 09/26/19 2:45 pm (Psychiatric evaluation) Discharge Diet: Usual diet Discharge Activity: Resume usual activity Patient Instructions: Fluoxetine (By mouth), Metronidazole (By mouth), Levofloxacin (By mouth) Activity Restrictions/Additional Instructions: Please call your doctor or present to emergency department if your condition worsens or you develop diarrhea. Please discuss with your primary care physician to have nicotine patch refill if you need more. You will be discharged to the [address] [address] Discharge Date/Time: 08/21/19 12:54 Discharge Attestations NPU Time Spent in Discharge Care*: less than 30 min Specific Discharge Activities: Specific discharge activities: educating patient, discussing with disability case manager/social workers/dc planners, documenting/other paperwork and evaluating patient/reviewing data Coding Level of Care Code Acute Claims Processor for g Fwd Diagnoses Acute respiratory failure with hypoxia and hypercapnia J96.01; J96.02 Aspiration pneumonia due to food (regurgitated) J69.0 Altered mental status associated with intoxication F10.959 Methamphetamine dependence F15.20 Intentional overdose of drug in tablet form T50.902A Tobacco abuse Z72.0
[2019-08-21 07:16] VITALS: BP 99/55; PULSE 52; RESP 17; TEMP 36.6; O2SAT 98
[2019-08-21] MEDS: fluoxetine 20 mg Capsule PO (09:09)
[2019-08-21 09:34] VITALS: BP 99/55; PULSE 52; RESP 17; TEMP 36.6; O2SAT 98
[2019-08-21] MEDS: metroNIDAZOLE 500 MG Tablet PO (10:02)
== END 2019-08-21 12:54 | disposition home or self-care (01) | DRG 917 ==
LOC: ER 10:34 → ICU 13:47 → MEDSURG 08-12 00:33 → NP 08-14 12:53
PROVIDERS: Admitting Provider Internal Medicine; Emergency Provider Family Medicine; Visit Provider Psychiatry & Neurology Psychiatry
DX: T50.902A Poisoning by unspecified drugs, medicaments and biological substances, intentional self-harm, initial encounter (principal); J96.02 Acute respiratory failure with hypercapnia; J96.01 Acute respiratory failure with hypoxia; J69.0 Pneumonitis due to inhalation of food and vomit; R45.851 Suicidal ideations; F15.229 Other stimulant dependence with intoxication, unspecified; F17.210 Nicotine dependence, cigarettes, uncomplicated; Z91.5 Personal history of self-harm; Y92.009 Unspecified place in unspecified non-institutional (private) residence as the place of occurrence of the external cause
CPT/HCPCS: 12345; 36415; 36600; 51702; 70450; 71045; 80051; 80053; 80306; 80307; 81003; 82009; 82550; 82803; 82810; 83690; 83735; 83986; 84100; 84484; 85025; 87070; 87205; 87635; 87804; 92523; 92610; 93005; 94002; 94003; 94760; 94762; 94799; 96372; 96374; 96375; 99284; A4570; C9113; J1650; J1956; J2704; J3490; S0030

== ENCOUNTER 2019-08-23 23:24 | Emergency (ER) | payer SELFPAY ==
[2019-08-23 23:26] VITALS: BP 129/77; PULSE 151; RESP 18; TEMP 36.7; O2SAT 95; BMI 20.3
--- NOTE | 2019-08-23 23:33 | W.ED.ANXIETY ---
HPI - Anxiety General: Chief Complaint: Psychiatric Symptoms Stated Complaint: MHE Time Seen by Provider: 08/23/19 23:27 Source: patient and EMS Mode of arrival: EMS Limitations: no limitations History of Present Illness: HPI narrative: 43-year-old male who is very well-known to the ER states that he used meth today has been feeling paranoid and anxious. He denies any suicidality or homicidality. He states he just feels very anxious at this time. He is awake and alert and able answer all my questions appropriately but is under the influence of methamphetamine at this time. complaint: anxiety Associated symptoms: Deny chest pain, chills, fever(s), headache(s), nausea or vomiting Review of Systems Const: Denies: fever, chills, body aches or change in appetite Eyes: Denies: blurry vision or eye discomfort ENMT: Denies: throat pain or dental pain Card: Denies: chest pain Resp: Denies: shortness of breath GI: Denies: abdominal pain, nausea, vomiting or diarrhea : Denies: painful urination Musc: Denies: neck pain or back pain Skin/Breast: Denies: rash Neuro: Denies: headache Psych: Reports: anxiety; Denies: depression Johan/Lymph: Denies: easy bruising All/Imm: Denies: hives PFSH ED PFSH: Medical History Polysubstance dependence in early, early partial, sustained full, or sustained partial remission Tobacco abuse Family History Family/Other Psychiatric illness His dad's brothers (2) had problems with methamphetamine also. Social History Smoking and tobacco status: current every day smoker Last substance use date: 07/21/19 Physical Exam Const: COMMON NORMALS: no apparent distress, oriented x3 and healthy appearing HENMT: COMMON NORMALS: normocephalic and head/scalp atraumatic HEAD & SCALP: normocephalic and atraumatic Eye: COMMON NORMALS: PERRL and EOMs intact bilaterally PUPIL: Yes PERRL Neck/C-Spine: COMMON NORMALS: full ROM and supple Chest: COMMONS NORMALS: inspection of chest normal and palpation of chest normal Resp: COMMON NORMALS: normal respiratory effort, no retractions, no use of accessory muscles and clear to auscultation bilaterally AUSCULTATION: clear to auscultation bilaterally Cardio: COMMON NORMALS: regular rate, regular rhythm and no murmurs RATE: regular rate RHYTHM: regular rhythm GI: COMMON NORMALS: normal to inspection, nondistended, normoactive bowel sounds, soft to palpation, non-tender and no masses PALPATION: Yes soft Extremity: COMMON NORMALS: normal to inspection and full ROM Neuro: COMMON NORMALS: oriented x3, moves all extremities and no focal motor deficits Psych: COMMON NORMALS: mental status grossly normal and thought process normal ATTITUDE: Yes paranoid MOOD & AFFECT: Yes anxious THOUGHT PROCESS: normal thought process Skin: COMMON NORMALS: no rashes or lesions noted and no wounds GENERAL SKIN EXAM: no rashes or lesions noted Course Vital Signs: Vital signs: Vital Signs Temperature 98.1 F 08/23/19 23:26 Pulse Rate 140 H 08/24/19 01:06 Respiratory Rate 18 08/24/19 01:06 Blood Pressure 115/77 08/24/19 01:06 Pulse Oximetry 96 08/24/19 01:06 MDM - Anxiety MDM Narrative: Medical decision making narrative: Patient presents here with methamphetamine abuse. Patient is not suicidal or homicidal. Patient feels much better after Ativan and he feels stable for discharge. Patient is to follow-up with his primary care doctor in 3 to 5 days return if worsening. Discharge Plan Discharge Patient Disposition: Home, Self-Care Clinical Impression: Methamphetamine dependence Condition: Stable Prescriptions: No Action citalopram 20 mg Tablet 20 mg PO DAILY Qty: 30 RF: 3 fluoxetine 20 mg Capsule 20 mg PO DAILY 30 Days Qty: 30 RF: 1 Discharge Orders: Discharge Order (Routine); Ordered 08/24/19 Ordered By: Jeremy Mercer Discharge Diet: Advance as tolerated Discharge Activity: Resume usual activity Patient Instructions: Methamphetamine Abuse (ED) Coding Level of Care Code ED Steam Conditioner Filling for Gaudencio Fwd Exam Comprehensive
[2019-08-24] MEDS: LORazepam 2 mg/mL INJ 1 mL IM (00:20)
[2019-08-24 01:06] VITALS: BP 115/77; PULSE 140; RESP 18; O2SAT 96
== END 2019-08-24 01:06 | disposition home or self-care (01) ==
PROVIDERS: Emergency Provider Emergency Medicine
DX: F15.980 Other stimulant use, unspecified with stimulant-induced anxiety disorder (principal); F17.210 Nicotine dependence, cigarettes, uncomplicated
CPT/HCPCS: 12345; 96372; 99281; J2060

== ENCOUNTER 2020-12-13 01:53 | Inpatient (IN) | payer SELFPAY ==
[2020-12-13] VITALS (30 sets, daily range): BP systolic 94–133; BP diastolic 56–83; PULSE 89–127; RESP 8–31; O2SAT 91–100; BMI 18.4
[2020-12-13] MEDS: LORazepam 2 mg/mL INJ 1 mL IM (02:54)
[2020-12-13] MEDS: haloperidol inj 5 mg/mL INJ 1 mL IM (02:55)
--- NOTE | 2020-12-13 02:56 | ED_ITS ---
Documented by User: Jeremy Mercer MD 12/14/20 03:03 HPI - Psych General: Chief Complaint: ER Hold Stated Complaint: HALLUCINATIONS Time Seen by Provider: 12/13/20 02:13 Source: patient, EMS and police Mode of arrival: EMS Limitations: no limitations History of Present Illness: HPI Narrative: 44-year-old male is here with EMS and police. Police states they were called by a passerby and patient was lying in the grass and screaming yelling at a bus. When they arrived patient admitted that he had used meth tonight he was quite belligerent. He is telling them about [place] people and how that he was not in her survival detail people and how he was going to try to harm someone. Patient here is under the influence and talking about the [place] people to me as well and tell him me that they will get me. He also told information security systems instructor was in the room and he was going to rip the TV off the wall and strike the information security systems instructor with the TV and kill him. Associated symptoms: Reports suicidal ideation; Deny depression Review of Systems Const: Denies: fever(s), chills, body aches or change in appetite Eyes: Denies: blurry vision or eye discomfort ENMT: Denies: throat pain or dental pain Card: Denies: chest pain Resp: Denies: dyspnea GI: Denies: abdominal pain, nausea, vomiting or diarrhea : Denies: dysuria Musc: Denies: neck pain or back pain Skin/Breast: Denies: rash Neuro: Denies: headache(s) Psych: Reports: anxiety, irritability, paranoia and suicidal ideation; Denies: depression Johan/Lymph: Denies: easy bruising All/Imm: Denies: urticaria PFSH ED PFSH: Medical History (Updated 12/15/20 @ 00:01 by ) Polysubstance dependence in early, early partial, sustained full, or sustained partial remission Tobacco abuse Family History Family/Other Psychiatric illness His dad's brothers (2) had problems with methamphetamine also. Social History Smoking and tobacco status: current every day smoker Last substance use date: 07/21/19 Physical Exam Const: COMMON NORMALS: patient oriented x3 GENERAL APPEARANCE: combative and ill appearing HENMT: COMMON NORMALS: normocephalic and atraumatic HEAD & SCALP: normocephalic and atraumatic Eye: COMMON NORMALS: Equal, round and reactive pupils present and EOMs intact bilaterally PUPIL: Yes Equal, round and reactive pupils present Neck/C-Spine: COMMON NORMALS: full ROM and supple Chest: COMMONS NORMALS: normal inspection of the chest and normal palpation of entire chest wall Resp: COMMON NORMALS: normal respiratory effort, No retractions, No use of accessory muscles and clear to auscultation bilaterally AUSCULTATION: clear to auscultation bilaterally Cardio: COMMON NORMALS: regular rate, regular rhythm and No murmurs present (Cardio) RATE: regular rate RHYTHM: regular rhythm GI: COMMON NORMALS: Normal to inspection, nondistended, normoactive bowel sounds present, Soft to palpation, non-tender and no masses PALPATION: Yes Soft to palpation Extremity: COMMON NORMALS: normal to inspection and full ROM Neuro: COMMON NORMALS: patient oriented x3, moves all extremities and no focal motor deficits Psych: COMMON NORMALS: mental status grossly normal ATTITUDE: Yes bizarre, Yes agitated and Yes aggressive MOOD & AFFECT: Yes elevated mood and Yes irritable Skin: COMMON NORMALS: no rashes or lesions noted and no wounds GENERAL SKIN EXAM: no rashes or lesions noted Face to Face: Restrn/Seclusion Events leading up to initiation: Verbalizing threat to self or others Evaluation of patient's immediate situation: Alert and oriented, No signs of physical distress and Signs of psychological distress Patient reaction since intervention applied: Continued attempts/displays harmful behavior Recent labs reviewed: Yes Review of medications: Yes Patient's current medical/behavioral condition: No new concerns since last ROS Need for restraint or seclusion is: Continued Attending notified: Yes Course Reevaluation(s): Reevaluation #1: Patient was becoming increasingly agitating and was threatening to take the TV off the wall and states he does not try to hit people with it. Patient was given ketamine for chemical restraint as he was becoming a threat to himself and others Time: 03:00 Reevaluation #2: Patient was given ketamine here for chemical restraint do to him becoming increasingly violent and threatening. Patient shortly after IM ketamine started having severe laryngeal spasms. Roughly 30 seconds to a minute after I came into the room patient started having severe coughing and was v clear this was due to laryngeal spasms likely from the ketamine. Patient's pulse ox dropped down into the 70s aand he had to be bagged valve mask ventilated and then sequentially intubated due to the laryngeal spasms and hypoxia. Once patient was given etomidate and vecuronium he was much easier to [id number] and was intubated without any desaturation or difficulties. Time: 03:26 Vital Signs: Vital signs: Vital Signs Temperature 98.1 F 12/14/20 13:30 Pulse Rate 90 12/14/20 13:30 Respiratory Rate 16 12/14/20 13:30 Blood Pressure 98/67 12/14/20 13:30 Pulse Oximetry 97 12/14/20 13:30 MDM - Psych MDM Narrative: Medical decision making narrative: Patient presents here initially with psychosis due to drug abuse and methamphetamine. Patient had to be given ketamine for sedation as he was becoming increasingly aggressive and verbal de-escalation was not working. He is threatening to assault the information security systems instructor. Patient is given IM ketamine and he had a side effect from that of laryngeal spasms. He had a coughing fit and had severe spasms that cause hypoxia. Patient was subsequently intubated due to these spasms. Patient's care turned over to Dr. Romero to seek placement as we do not have ICU beds at this time. Lab Data: Labs: Lab Results 12/13/20 12/13/20 12/13/20 Range/Units 03:20 03:20 03:20 WBC 15.8 H (4.0-10.0) 10^3/ uL RBC 4.69 (4.1-5.3) 10^6/u L Hgb 14.7 (11.7-16.6) g/dL Hct 42.9 (42.0-52.0) % MCV 91.5 (80-94) fL MCH 31.3 (28.0-34.0) pg MCHC 34.3 (30.0-36.0) g/dL RDW 11.9 L (12.1-15.1) % Plt Count 329 (130-400) 10^3/c mm MPV 11.0 H (7.4-10.4) fL Neut % (Auto) 72.3 % Lymph % (Auto) 13.9 % Lane % (Auto) 12.7 % Eos % (Auto) 0.3 % Baso % (Auto) 0.4 % Neut # (Auto) 11.44 H (1.8-7.7) 10^3/u L Lymph # (Auto) 2.2 (0.8-4.8) 10^3/u L Lane # (Auto) 2.0 H (0.2-0.9) 10^3/u L Eos # (Auto) 0.0 (0.0-0.8) 10^3/u L Baso # (Auto) 0.1 (0.0-0.1) 10^3/u L Nucleated RBC % (a uto) 0 % Nucleated RBCs # 0.0 /100WBC Specimen Type Sample Site ABG pH (7.35-7.45) ABG pCO2 (35-45) mmHg ABG pO2 (80.0-100.0) mmH g ABG HCO3 (22-26) mmol/L ABG O2 Saturation ABG Base Excess (-2.0-2.0) mmol/ L Srinivas Test A-a O2 Gradient (5-10) mmHg Hematocrit (42-52) % Hgb O2 Saturation (95-100) % Carboxyhemoglobin (0.4-20.1) %THgb Methemoglobin (0.4-1.5) % Total Hemoglobin (14-18) g/dL Ionized Calcium (1.1-1.4) mmol/L O2 Delivery Device O2 Liters/Min % FiO2 % Tidal Volume PEEP cmH20 Cooperative Education Coordinator ID Sodium 135 L (136-145) mmol/L Potassium 3.6 (3.5-5.1) mmol/L Chloride 95 L (98-107) mmol/L Carbon Dioxide 25 (22-29) mmol/L Anion Gap 18.6 (5-19) BUN 17 (6-20) mg/dL Creatinine 0.9 (0.7-1.2) mg/dL GFR Calculation 90.8 (90-130) mL/min Glucose 94 (65-115) mg/dL Calculated Osmolal ity 281 L (285-295) mOsm/k g Calcium 8.6 (8.5-10.5) mg/dL Total Bilirubin 1.1 (0.15-1.2) mg/dL AST 24 (0-40) U/L ALT 18 (0-41) U/L Alkaline Phosphata se 118 (40-130) IU/L NT-Pro-B Natriuret Pep 43 (0-125) pg/mL Total Protein 7.5 (6.6-8.7) g/dL Albumin 4.0 (3.5-5.2) g/dL Globulin 3.5 (1.3-4.6) g/dL Salicylates 0.4 L (3-10) mg/dL Urine Opiates Scre en (Negative) ng/mL Acetaminophen < 5.0 L (10-30) ug/mL Ur Barbiturates Sc reen (Negative) ng/mL Ur Phencyclidine S crn (Negative) ng/mL Ur Amphetamines Sc reen (Negative) ng/mL U Benzodiazepines Scrn (Negative) ng/mL Urine Cocaine Scre en (Negative) ng/mL U Marijuana (THC) Screen (Negative) ng/mL Ethyl Alcohol < 10 (0-10) mg/dL SARS-CoV-2 RNA (RT -PCR) (NOT DETECTED) SARS-CoV-2 Ag (Rap id) (Negative) 12/13/20 12/13/20 12/13/20 Range/Units 03:50 05:15 05:15 WBC (4.0-10.0) 10^3/ uL RBC (4.1-5.3) 10^6/u L Hgb (11.7-16.6) g/dL Hct (42.0-52.0) % MCV (80-94) fL MCH (28.0-34.0) pg MCHC (30.0-36.0) g/dL RDW (12.1-15.1) % Plt Count (130-400) 10^3/c mm MPV (7.4-10.4) fL Neut % (Auto) % Lymph % (Auto) % Lane % (Auto) % Eos % (Auto) % Baso % (Auto) % Neut # (Auto) (1.8-7.7) 10^3/u L Lymph # (Auto) (0.8-4.8) 10^3/u L Lane # (Auto) (0.2-0.9) 10^3/u L Eos # (Auto) (0.0-0.8) 10^3/u L Baso # (Auto) (0.0-0.1) 10^3/u L Nucleated RBC % (a uto) % Nucleated RBCs # /100WBC Specimen Type Arterial Sample Site Radial, left ABG pH 7.38 (7.35-7.45) ABG pCO2 43.2 (35-45) mmHg ABG pO2 68.0 L (80.0-100.0) mmH g ABG HCO3 25.3 (22-26) mmol/L ABG O2 Saturation ABG Base Excess -0.2 (-2.0-2.0) mmol/ L Srinivas Test Pos A-a O2 Gradient (5-10) mmHg Hematocrit 44.5 (42-52) % Hgb O2 Saturation (95-100) % Carboxyhemoglobin (0.4-20.1) %THgb Methemoglobin (0.4-1.5) % Total Hemoglobin (14-18) g/dL Ionized Calcium (1.1-1.4) mmol/L O2 Delivery Device Vent O2 Liters/Min % FiO2 70.0 % Tidal Volume 0.65 PEEP 10.0 cmH20 Cooperative Education Coordinator ID [email or web address] Sodium (136-145) mmol/L Potassium (3.5-5.1) mmol/L Chloride (98-107) mmol/L Carbon Dioxide (22-29) mmol/L Anion Gap (5-19) BUN (6-20) mg/dL Creatinine (0.7-1.2) mg/dL GFR Calculation (90-130) mL/min Glucose (65-115) mg/dL Calculated Osmolal ity (285-295) mOsm/k g Calcium (8.5-10.5) mg/dL Total Bilirubin (0.15-1.2) mg/dL AST (0-40) U/L ALT (0-41) U/L Alkaline Phosphata se (40-130) IU/L NT-Pro-B Natriuret Pep (0-125) pg/mL Total Protein (6.6-8.7) g/dL Albumin (3.5-5.2) g/dL Globulin (1.3-4.6) g/dL Salicylates (3-10) mg/dL Urine Opiates Scre en Negative (Negative) ng/mL Acetaminophen (10-30) ug/mL Ur Barbiturates Sc reen Negative (Negative) ng/mL Ur Phencyclidine S crn Negative (Negative) ng/mL Ur Amphetamines Sc reen Positive H (Negative) ng/mL U Benzodiazepines Scrn Negative (Negative) ng/mL Urine Cocaine Scre en Negative (Negative) ng/mL U Marijuana (THC) Screen Negative (Negative) ng/mL Ethyl Alcohol (0-10) mg/dL SARS-CoV-2 RNA (RT -PCR) (NOT DETECTED) SARS-CoV-2 Ag (Rap id) Negative (Negative) 12/13/20 12/13/20 12/13/20 Range/Units 05:55 15:11 16:00 WBC 15.5 H (4.0-10.0) 10^3/ uL RBC 4.49 (4.1-5.3) 10^6/u L Hgb 14.1 (11.7-16.6) g/dL Hct 41.2 L (42.0-52.0) % MCV 91.8 (80-94) fL MCH 31.4 (28.0-34.0) pg MCHC 34.2 (30.0-36.0) g/dL RDW 12.1 (12.1-15.1) % Plt Count 242 (130-400) 10^3/c mm MPV 10.6 H (7.4-10.4) fL Neut % (Auto) 84.2 % Lymph % (Auto) 5.5 % Lane % (Auto) 9.1 % Eos % (Auto) 0.3 % Baso % (Auto) 0.5 % Neut # (Auto) 13.07 H (1.8-7.7) 10^3/u L Lymph # (Auto) 0.9 (0.8-4.8) 10^3/u L Lane # (Auto) 1.4 H (0.2-0.9) 10^3/u L Eos # (Auto) 0.1 (0.0-0.8) 10^3/u L Baso # (Auto) 0.1 (0.0-0.1) 10^3/u L Nucleated RBC % (a uto) 0 % Nucleated RBCs # 0.0 /100WBC Specimen Type Arterial Arterial Sample Site Radial, right Radial, left ABG pH 7.40 7.39 (7.35-7.45) ABG pCO2 39.8 44.6 (35-45) mmHg ABG pO2 130.0 H 165.0 H (80.0-100.0) mmH g ABG HCO3 24.8 26.8 H (22-26) mmol/L ABG O2 Saturation 99.6 ABG Base Excess 0.1 1.3 (-2.0-2.0) mmol/ L Srinivas Test Pos Pos A-a O2 Gradient 63.9 H (5-10) mmHg Hematocrit 45.3 46.4 (42-52) % Hgb O2 Saturation 97.9 (95-100) % Carboxyhemoglobin 0.5 (0.4-20.1) %THgb Methemoglobin 1.2 (0.4-1.5) % Total Hemoglobin 15.2 (14-18) g/dL Ionized Calcium 1.2 (1.1-1.4) mmol/L O2 Delivery Device Vent Nrb O2 Liters/Min 15.0 % FiO2 70.0 100.0 % Tidal Volume 0.65 PEEP 10.0 cmH20 Cooperative Education Coordinator ID Rn glc Sodium 139.0 (136-145) mmol/L Potassium 3.4 L (3.5-5.1) mmol/L Chloride (98-107) mmol/L Carbon Dioxide (22-29) mmol/L Anion Gap (5-19) BUN (6-20) mg/dL Creatinine (0.7-1.2) mg/dL GFR Calculation (90-130) mL/min Glucose 79.0 (65-115) mg/dL Calculated Osmolal ity (285-295) mOsm/k g Calcium (8.5-10.5) mg/dL Total Bilirubin (0.15-1.2) mg/dL AST (0-40) U/L ALT (0-41) U/L Alkaline Phosphata se (40-130) IU/L NT-Pro-B Natriuret Pep (0-125) pg/mL Total Protein (6.6-8.7) g/dL Albumin (3.5-5.2) g/dL Globulin (1.3-4.6) g/dL Salicylates (3-10) mg/dL Urine Opiates Scre en (Negative) ng/mL Acetaminophen (10-30) ug/mL Ur Barbiturates Sc reen (Negative) ng/mL Ur Phencyclidine S crn (Negative) ng/mL Ur Amphetamines Sc reen (Negative) ng/mL U Benzodiazepines Scrn (Negative) ng/mL Urine Cocaine Scre en (Negative) ng/mL U Marijuana (THC) Screen (Negative) ng/mL Ethyl Alcohol (0-10) mg/dL SARS-CoV-2 RNA (RT -PCR) (NOT DETECTED) SARS-CoV-2 Ag (Rap id) (Negative) 12/13/20 12/14/20 Range/Units 16:10 01:05 WBC (4.0-10.0) 10^3/ uL RBC (4.1-5.3) 10^6/u L Hgb (11.7-16.6) g/dL Hct (42.0-52.0) % MCV (80-94) fL MCH (28.0-34.0) pg MCHC (30.0-36.0) g/dL RDW (12.1-15.1) % Plt Count (130-400) 10^3/c mm MPV (7.4-10.4) fL Neut % (Auto) % Lymph % (Auto) % Lane % (Auto) % Eos % (Auto) % Baso % (Auto) % Neut # (Auto) (1.8-7.7) 10^3/u L Lymph # (Auto) (0.8-4.8) 10^3/u L Lane # (Auto) (0.2-0.9) 10^3/u L Eos # (Auto) (0.0-0.8) 10^3/u L Baso # (Auto) (0.0-0.1) 10^3/u L Nucleated RBC % (a uto) % Nucleated RBCs # /100WBC Specimen Type Arterial Sample Site Radial, left ABG pH 7.41 (7.35-7.45) ABG pCO2 44.3 (35-45) mmHg ABG pO2 190.0 H (80.0-100.0) mmH g ABG HCO3 27.8 H (22-26) mmol/L ABG O2 Saturation ABG Base Excess 2.5 H (-2.0-2.0) mmol/ L Srinivas Test Pos A-a O2 Gradient (5-10) mmHg Hematocrit 48.6 (42-52) % Hgb O2 Saturation (95-100) % Carboxyhemoglobin (0.4-20.1) %THgb Methemoglobin (0.4-1.5) % Total Hemoglobin (14-18) g/dL Ionized Calcium (1.1-1.4) mmol/L O2 Delivery Device Nc O2 Liters/Min 45.0 % FiO2 62.0 % Tidal Volume PEEP cmH20 Cooperative Education Coordinator ID [email or web address] Sodium (136-145) mmol/L Potassium (3.5-5.1) mmol/L Chloride (98-107) mmol/L Carbon Dioxide (22-29) mmol/L Anion Gap (5-19) BUN (6-20) mg/dL Creatinine (0.7-1.2) mg/dL GFR Calculation (90-130) mL/min Glucose (65-115) mg/dL Calculated Osmolal ity (285-295) mOsm/k g Calcium (8.5-10.5) mg/dL Total Bilirubin (0.15-1.2) mg/dL AST (0-40) U/L ALT (0-41) U/L Alkaline Phosphata se (40-130) IU/L NT-Pro-B Natriuret Pep (0-125) pg/mL Total Protein (6.6-8.7) g/dL Albumin (3.5-5.2) g/dL Globulin (1.3-4.6) g/dL Salicylates (3-10) mg/dL Urine Opiates Scre en (Negative) ng/mL Acetaminophen (10-30) ug/mL Ur Barbiturates Sc reen (Negative) ng/mL Ur Phencyclidine S crn (Negative) ng/mL Ur Amphetamines Sc reen (Negative) ng/mL U Benzodiazepines Scrn (Negative) ng/mL Urine Cocaine Scre en (Negative) ng/mL U Marijuana (THC) Screen (Negative) ng/mL Ethyl Alcohol (0-10) mg/dL SARS-CoV-2 RNA (RT -PCR) Not detected (NOT DETECTED) SARS-CoV-2 Ag (Rap id) (Negative) Imaging Data^: CXR: Attestation: I personally reviewed and interpreted this imaging study as follows: Radiologist's impression: [address] [address] XRay Report Signed Patient: Marty Islas Jr Unit #: [id number] : 1975 Age/Sex: 44 / M ADM Date: 12/13/20 Loc: ER Room/Bed: Attending Dr: Ordering Provider/Ordering MD: Jreemy Mercer MD Date of Service: 12/13/20 Procedure(s): XR chest 1V portable [id number] Accession Number(s): [id number] Report Number: [id number] PROCEDURE INFORMATION: Exam: XR Chest Exam date and time: 12/13/2020 3:24 AM Age: 44 years old Clinical indication: Device placement; Ett placement (vent status); Patient HX: Check for et and og placement in er. ; Additional info: Intubation TECHNIQUE: Imaging protocol: XR of the chest. Views: 1 view. COMPARISON: CR (CHEST, ) 08/12/2019 2:31 PM FINDINGS: Tubes, catheters and devices: An orogastric tube is placed with its tip in the proximal stomach. An endotracheal tube is placed with its tip approximately 2.3 cm from the annmarie. EKG leads overlie the chest. Lungs: There are patchy opacities present in the right lower hemithorax, findings compatible with a right basilar pneumonia. Pleural spaces: Unremarkable. No pleural effusion. No pneumothorax. Heart/Mediastinum: Unremarkable. No cardiomegaly. Bones/joints: Unremarkable. XR/XR chest 1V portable [id number] IMPRESSION: 1. Endotracheal tube tip 2.3 cm from the annmarie. 2. Orogastric tube tip in proximal stomach. 3. Patchy opacities in the right lung base compatible with a right basilar pneumonia. Dictated By: Jamel Sow MD Signed By: Jamel Sow MD Signed Date/Time: 12/13/20441 DD/ 0 EKG Data^: EKG 1: Attestation: I personally reviewed and interpreted this EKG as follows: EKG interpretation date: 12/13/20 EKG interpretation time: 03:47 Interpretation: sinus tach hr [address] or t wave abnormalities qrs 97 qtc 414 Critical Care Time Critical Care Time: Critical Care Time: Yes Total Critical Care Time: 35 Attestation: This case had a high probability of a clinically significant, sudden, or life threatening deterioration of this patient's condition which required my full and direct attention, intervention and personal management. Discharge Plan Discharge Patient Disposition: Home Clinical Impression: Laryngospasms, Respiratory failure Drug-induced psychotic disorder Qualifiers: Complication of substance-induced condition: with delusions Qualified Code(s): F19.950 - Other psychoactive substance use, unspecified with psychoactive substance-induced psychotic disorder with delusions Condition: Stable Discharge Orders: Discharge Order (Routine); Ordered 12/14/20 Ordered By: Cedric Lozada Discharge Diet: Advance as tolerated and Regular Discharge Activity: Resume usual activity Sign Out Sign Out Data: Patient Sign Out occurred on 12/13/20 at 08:16. Patient's care was discussed, and care was transferred from to Xavier Clark DO. Coding Level of Care Code ED [employer] Project Manager for Chg Fwd Exam Comprehensive Documented by User: Xavier Clark DO 12/15/20 15:19 HPI - Psych General: Chief Complaint: ER Hold Stated Complaint: HALLUCINATIONS Time Seen by Provider: 12/13/20 02:13 [facility] ED PFSH: Medical History (Updated 12/15/20 @ 00:01 by ) Polysubstance dependence in early, early partial, sustained full, or sustained partial remission Tobacco abuse Family History Family/Other Psychiatric illness His dad's brothers (2) had problems with methamphetamine also. Social History Smoking and tobacco status: current every day smoker Last substance use date: 07/21/19 Course Vital Signs: Vital signs: Vital Signs Temperature 98.1 F 12/14/20 13:30 Pulse Rate 90 12/14/20 13:30 Respiratory Rate 16 12/14/20 13:30 Blood Pressure 98/67 12/14/20 13:30 Pulse Oximetry 97 12/14/20 13:30 MDM - Psych MDM Narrative: Medical decision making narrative: Patient admitted because of methamphetamine induced psychosis. Laryngeal spasm after receiving ketamine. He has been on the ventilator for over 12 hours were reevaluated and we titrated his sedation down and then off. Patient woke up nearly self extubated we extubated him he is not awake or alert he however he is ventilating well on his own. He has thick tenacious sputum. His oxygen sats are good. Repeat work-up including chest x-ray CBC sputum culture and will start antibiotics for aspiration pneumonia. Patient was here for a long time was ultimately up and ambulatory. We had consulted the hospitalist continue the antibiotics continue pulmonary toilet eventually patient was awake alert oriented and wanted to leave he was discharged by the hospitalist see their notes. Lab Data: Labs: Lab Results 12/13/20 12/13/20 12/13/20 Range/Units 03:20 03:20 03:20 WBC 15.8 H (4.0-10.0) 10^3/ uL RBC 4.69 (4.1-5.3) 10^6/u L Hgb 14.7 (11.7-16.6) g/dL Hct 42.9 (42.0-52.0) % MCV 91.5 (80-94) fL MCH 31.3 (28.0-34.0) pg MCHC 34.3 (30.0-36.0) g/dL RDW 11.9 L (12.1-15.1) % Plt Count 329 (130-400) 10^3/c mm MPV 11.0 H (7.4-10.4) fL Neut % (Auto) 72.3 % Lymph % (Auto) 13.9 % Lane % (Auto) 12.7 % Eos % (Auto) 0.3 % Baso % (Auto) 0.4 % Neut # (Auto) 11.44 H (1.8-7.7) 10^3/u L Lymph # (Auto) 2.2 (0.8-4.8) 10^3/u L Lane # (Auto) 2.0 H (0.2-0.9) 10^3/u L Eos # (Auto) 0.0 (0.0-0.8) 10^3/u L Baso # (Auto) 0.1 (0.0-0.1) 10^3/u L Nucleated RBC % (a uto) 0 % Nucleated RBCs # 0.0 /100WBC Specimen Type Sample Site ABG pH (7.35-7.45) ABG pCO2 (35-45) mmHg ABG pO2 (80.0-100.0) mmH g ABG HCO3 (22-26) mmol/L ABG O2 Saturation ABG Base Excess (-2.0-2.0) mmol/ L Srinivas Test A-a O2 Gradient (5-10) mmHg Hematocrit (42-52) % Hgb O2 Saturation (95-100) % Carboxyhemoglobin (0.4-20.1) %THgb Methemoglobin (0.4-1.5) % Total Hemoglobin (14-18) g/dL Ionized Calcium (1.1-1.4) mmol/L O2 Delivery Device O2 Liters/Min % FiO2 % Tidal Volume PEEP cmH20 Cooperative Education Coordinator ID Sodium 135 L (136-145) mmol/L Potassium 3.6 (3.5-5.1) mmol/L Chloride 95 L (98-107) mmol/L Carbon Dioxide 25 (22-29) mmol/L Anion Gap 18.6 (5-19) BUN 17 (6-20) mg/dL Creatinine 0.9 (0.7-1.2) mg/dL GFR Calculation 90.8 (90-130) mL/min Glucose 94 (65-115) mg/dL Calculated Osmolal ity 281 L (285-295) mOsm/k g Calcium 8.6 (8.5-10.5) mg/dL Total Bilirubin 1.1 (0.15-1.2) mg/dL AST 24 (0-40) U/L ALT 18 (0-41) U/L Alkaline Phosphata se 118 (40-130) IU/L NT-Pro-B Natriuret Pep 43 (0-125) pg/mL Total Protein 7.5 (6.6-8.7) g/dL Albumin 4.0 (3.5-5.2) g/dL Globulin 3.5 (1.3-4.6) g/dL Salicylates 0.4 L (3-10) mg/dL Urine Opiates Scre en (Negative) ng/mL Acetaminophen < 5.0 L (10-30) ug/mL Ur Barbiturates Sc reen (Negative) ng/mL Ur Phencyclidine S crn (Negative) ng/mL Ur Amphetamines Sc reen (Negative) ng/mL U Benzodiazepines Scrn (Negative) ng/mL Urine Cocaine Scre en (Negative) ng/mL U Marijuana (THC) Screen (Negative) ng/mL Ethyl Alcohol < 10 (0-10) mg/dL SARS-CoV-2 RNA (RT -PCR) (NOT DETECTED) SARS-CoV-2 Ag (Rap id) (Negative) 12/13/20 12/13/20 12/13/20 Range/Units 03:50 05:15 05:15 WBC (4.0-10.0) 10^3/ uL RBC (4.1-5.3) 10^6/u L Hgb (11.7-16.6) g/dL Hct (42.0-52.0) % MCV (80-94) fL MCH (28.0-34.0) pg MCHC (30.0-36.0) g/dL RDW (12.1-15.1) % Plt Count (130-400) 10^3/c mm MPV (7.4-10.4) fL Neut % (Auto) % Lymph % (Auto) % Lane % (Auto) % Eos % (Auto) % Baso % (Auto) % Neut # (Auto) (1.8-7.7) 10^3/u L Lymph # (Auto) (0.8-4.8) 10^3/u L Lane # (Auto) (0.2-0.9) 10^3/u L Eos # (Auto) (0.0-0.8) 10^3/u L Baso # (Auto) (0.0-0.1) 10^3/u L Nucleated RBC % (a uto) % Nucleated RBCs # /100WBC Specimen Type Arterial Sample Site Radial, left ABG pH 7.38 (7.35-7.45) ABG pCO2 43.2 (35-45) mmHg ABG pO2 68.0 L (80.0-100.0) mmH g ABG HCO3 25.3 (22-26) mmol/L ABG O2 Saturation ABG Base Excess -0.2 (-2.0-2.0) mmol/ L Srinivas Test Pos A-a O2 Gradient (5-10) mmHg Hematocrit 44.5 (42-52) % Hgb O2 Saturation (95-100) % Carboxyhemoglobin (0.4-20.1) %THgb Methemoglobin (0.4-1.5) % Total Hemoglobin (14-18) g/dL Ionized Calcium (1.1-1.4) mmol/L O2 Delivery Device Vent O2 Liters/Min % FiO2 70.0 % Tidal Volume 0.65 PEEP 10.0 cmH20 [employer] Education Coordinator ID [email or web address] Sodium (136-145) mmol/L Potassium (3.5-5.1) mmol/L Chloride (98-107) mmol/L Carbon Dioxide (22-29) mmol/L Anion Gap (5-19) BUN (6-20) mg/dL Creatinine (0.7-1.2) mg/dL GFR Calculation (90-130) mL/min Glucose (65-115) mg/dL Calculated Osmolal ity (285-295) mOsm/k g Calcium (8.5-10.5) mg/dL Total Bilirubin (0.15-1.2) mg/dL AST (0-40) U/L ALT (0-41) U/L Alkaline Phosphata se (40-130) IU/L NT-Pro-B Natriuret Pep (0-125) pg/mL Total Protein (6.6-8.7) g/dL Albumin (3.5-5.2) g/dL Globulin (1.3-4.6) g/dL Salicylates (3-10) mg/dL Urine Opiates Scre en Negative (Negative) ng/mL Acetaminophen (10-30) ug/mL Ur Barbiturates Sc reen Negative (Negative) ng/mL Ur Phencyclidine S crn Negative (Negative) ng/mL Ur Amphetamines Sc reen Positive H (Negative) ng/mL U Benzodiazepines Scrn Negative (Negative) ng/mL Urine Cocaine Scre en Negative (Negative) ng/mL U Marijuana (THC) Screen Negative (Negative) ng/mL Ethyl Alcohol (0-10) mg/dL SARS-CoV-2 RNA (RT -PCR) (NOT DETECTED) SARS-CoV-2 Ag (Rap id) Negative (Negative) 12/13/20 12/13/20 12/13/20 Range/Units 05:55 15:11 16:00 WBC 15.5 H (4.0-10.0) 10^3/ uL RBC 4.49 (4.1-5.3) 10^6/u L Hgb 14.1 (11.7-16.6) g/dL Hct 41.2 L (42.0-52.0) % MCV 91.8 (80-94) fL MCH 31.4 (28.0-34.0) pg MCHC 34.2 (30.0-36.0) g/dL RDW 12.1 (12.1-15.1) % Plt Count 242 (130-400) 10^3/c mm MPV 10.6 H (7.4-10.4) fL Neut % (Auto) 84.2 % Lymph % (Auto) 5.5 % Lane % (Auto) 9.1 % Eos % (Auto) 0.3 % Baso % (Auto) 0.5 % Neut # (Auto) 13.07 H (1.8-7.7) 10^3/u L Lymph # (Auto) 0.9 (0.8-4.8) 10^3/u L Lane # (Auto) 1.4 H (0.2-0.9) 10^3/u L Eos # (Auto) 0.1 (0.0-0.8) 10^3/u L Baso # (Auto) 0.1 (0.0-0.1) 10^3/u L Nucleated RBC % (a uto) 0 % Nucleated RBCs # 0.0 /100WBC Specimen Type Arterial Arterial Sample Site Radial, right Radial, left ABG pH 7.40 7.39 (7.35-7.45) ABG pCO2 39.8 44.6 (35-45) mmHg ABG pO2 130.0 H 165.0 H (80.0-100.0) mmH g ABG HCO3 24.8 26.8 H (22-26) mmol/L ABG O2 Saturation 99.6 ABG Base Excess 0.1 1.3 (-2.0-2.0) mmol/ L Srinivas Test Pos Pos A-a O2 Gradient 63.9 H (5-10) mmHg Hematocrit 45.3 46.4 (42-52) % Hgb O2 Saturation 97.9 (95-100) % Carboxyhemoglobin 0.5 (0.4-20.1) %THgb Methemoglobin 1.2 (0.4-1.5) % Total Hemoglobin 15.2 (14-18) g/dL Ionized Calcium 1.2 (1.1-1.4) mmol/L O2 Delivery Device Vent Nrb O2 Liters/Min 15.0 % FiO2 70.0 100.0 % Tidal Volume 0.65 PEEP 10.0 cmH20 Cooperative Education Coordinator ID Rn glc Sodium 139.0 (136-145) mmol/L Potassium 3.4 L (3.5-5.1) mmol/L Chloride (98-107) mmol/L Carbon Dioxide (22-29) mmol/L Anion Gap (5-19) BUN (6-20) mg/dL Creatinine (0.7-1.2) mg/dL GFR Calculation (90-130) mL/min Glucose 79.0 (65-115) mg/dL Calculated Osmolal ity (285-295) mOsm/k g Calcium (8.5-10.5) mg/dL Total Bilirubin (0.15-1.2) mg/dL AST (0-40) U/L ALT (0-41) U/L Alkaline Phosphata se (40-130) IU/L NT-Pro-B Natriuret Pep (0-125) pg/mL Total Protein (6.6-8.7) g/dL Albumin (3.5-5.2) g/dL Globulin (1.3-4.6) g/dL Salicylates (3-10) mg/dL Urine Opiates Scre en (Negative) ng/mL Acetaminophen (10-30) ug/mL Ur Barbiturates Sc reen (Negative) ng/mL Ur Phencyclidine S crn (Negative) ng/mL Ur Amphetamines Sc reen (Negative) ng/mL U Benzodiazepines Scrn (Negative) ng/mL Urine Cocaine Scre en (Negative) ng/mL U Marijuana (THC) Screen (Negative) ng/mL Ethyl Alcohol (0-10) mg/dL SARS-CoV-2 RNA (RT -PCR) (NOT DETECTED) SARS-CoV-2 Ag (Rap id) (Negative) 12/13/20 12/14/20 Range/Units 16:10 01:05 WBC (4.0-10.0) 10^3/ uL RBC (4.1-5.3) 10^6/u L Hgb (11.7-16.6) g/dL Hct (42.0-52.0) % MCV (80-94) fL MCH (28.0-34.0) pg MCHC (30.0-36.0) g/dL RDW (12.1-15.1) % Plt Count (130-400) 10^3/c mm MPV (7.4-10.4) fL Neut % (Auto) % Lymph % (Auto) % Lane % (Auto) % Eos % (Auto) % Baso % (Auto) % Neut # (Auto) (1.8-7.7) 10^3/u L Lymph # (Auto) (0.8-4.8) 10^3/u L Lane # (Auto) (0.2-0.9) 10^3/u L Eos # (Auto) (0.0-0.8) 10^3/u L Baso # (Auto) (0.0-0.1) 10^3/u L Nucleated RBC % (a uto) % Nucleated RBCs # /100WBC Specimen Type Arterial Sample Site Radial, left ABG pH 7.41 (7.35-7.45) ABG pCO2 44.3 (35-45) mmHg ABG pO2 190.0 H (80.0-100.0) mmH g ABG HCO3 27.8 H (22-26) mmol/L ABG O2 Saturation ABG Base Excess 2.5 H (-2.0-2.0) mmol/ L Srinivas Test Pos A-a O2 Gradient (5-10) mmHg Hematocrit 48.6 (42-52) % Hgb O2 Saturation (95-100) % Carboxyhemoglobin (0.4-20.1) %THgb Methemoglobin (0.4-1.5) % Total Hemoglobin (14-18) g/dL Ionized Calcium (1.1-1.4) mmol/L O2 Delivery Device Nc O2 Liters/Min 45.0 % FiO2 62.0 % Tidal Volume PEEP cmH20 Cooperative Education Coordinator ID [email or web address] Sodium (136-145) mmol/L Potassium (3.5-5.1) mmol/L Chloride (98-107) mmol/L Carbon Dioxide (22-29) mmol/L Anion Gap (5-19) BUN (6-20) mg/dL Creatinine (0.7-1.2) mg/dL GFR Calculation (90-130) mL/min Glucose (65-115) mg/dL Calculated Osmolal ity (285-295) mOsm/k g Calcium (8.5-10.5) mg/dL Total Bilirubin (0.15-1.2) mg/dL AST (0-40) U/L ALT (0-41) U/L Alkaline Phosphata se (40-130) IU/L NT-Pro-B Natriuret Pep (0-125) pg/mL Total Protein (6.6-8.7) g/dL Albumin (3.5-5.2) g/dL Globulin (1.3-4.6) g/dL Salicylates (3-10) mg/dL Urine Opiates Scre en (Negative) ng/mL Acetaminophen (10-30) ug/mL Ur Barbiturates Sc reen (Negative) ng/mL Ur Phencyclidine S crn (Negative) ng/mL Ur Amphetamines Sc reen (Negative) ng/mL U Benzodiazepines Scrn (Negative) ng/mL Urine Cocaine Scre en (Negative) ng/mL U Marijuana (THC) Screen (Negative) ng/mL Ethyl Alcohol (0-10) mg/dL SARS-CoV-2 RNA (RT -PCR) Not detected (NOT DETECTED) SARS-CoV-2 Ag (Rap id) (Negative) Discharge Plan Discharge Patient Disposition: Home Clinical Impression: Laryngospasms, Respiratory failure Drug-induced psychotic disorder Qualifiers: Complication of substance-induced condition: with delusions Qualified Code(s): F19.950 - Other psychoactive substance use, unspecified with psychoactive substance-induced psychotic disorder with delusions Condition: Stable Discharge Orders: Discharge Order (Routine); Ordered 12/14/20 Ordered By: Cedric Lozada Discharge Diet: Advance as tolerated and Regular Discharge Activity: Resume usual activity Sign Out Sign Out Data: Patient Sign Out occurred on 12/13/20 at 08:16. Patient's care was discussed, and care was transferred from to Xavier Clark DO. Coding Level of Care Code ED [employer] Project Manager for Gaudencio Fwd Exam Comprehensive
[2020-12-13] MEDS: vecuronium 10 mg SDV IVP (03:20)
--- NOTE | 2020-12-13 03:24 | XRR_ITS ---
PROCEDURE INFORMATION: Exam: XR Chest Exam date and time: 12/13/2020 3:24 AM Age: 44 years old Clinical indication: Device placement; Ett placement (vent status); Patient HX: Check for et and og placement in er. ; Additional info: Intubation TECHNIQUE: Imaging protocol: XR of the chest. Views: 1 view. COMPARISON: CR (CHEST, ) 08/12/2019 2:31 PM FINDINGS: Tubes, catheters and devices: An orogastric tube is placed with its tip in the proximal stomach. An endotracheal tube is placed with its tip approximately 2.3 cm from the annmarie. EKG leads overlie the chest. Lungs: There are patchy opacities present in the right lower hemithorax, findings compatible with a right basilar pneumonia. Pleural spaces: Unremarkable. No pleural effusion. No pneumothorax. Heart/Mediastinum: Unremarkable. No cardiomegaly. Bones/joints: Unremarkable. XR/XR chest 1V portable [id number] IMPRESSION: 1. Endotracheal tube tip 2.3 cm from the annmarie. 2. Orogastric tube tip in proximal stomach. 3. Patchy opacities in the right lung base compatible with a right basilar pneumonia.
--- NOTE | 2020-12-13 03:24 | ECG_ITS ---
[facility] ED Test Date: 2020-12-13 Pat Name: Marty Islas Jr Department: Room: Gender: Male Lcac Operator: : 1975 Requested By: Jeremy Mercer Order Number: [id number] Evangelist MD: Henny Arevalo M.D. Measurements Intervals Arjay Rate: 100 P: 84 WV: 159 QRS: 84 QRSD: 97 T: 68 QT: 357 QTc: 461 Interpretive Statements SINUS TACHYCARDIA ABNORMAL RHYTHM ECG Compared to ECG 08/10/2019 12:21:43 Sinus rhythm no longer present T-wave abnormality no longer present Electronically Signed On 12-13-2020 13:54:43 CDT by Henny Arevalo M.D. [email or web address] [email or web address].[id number]
[2020-12-13] MEDS: propofol 1,000 MG/100 ML INJ 1.7 MG IV (03:42)
--- NOTE | 2020-12-13 03:54 | PC.NURSE ---
Pt lost ability to manage airway after sedative administration. Pt became apneic and O2 sats dropped rapidly. Nursing staffing and physician at beside. Nasal trumpet placed, then OPA, pt did not recover. Sat's dropped to 40% with OPA and ambu bag. Physician @ bedside for immediate intubation. 20 Etomidate & 10 Vecronium administered, 8.0 ETT. Pt transferred to Trauma room 11 and this nurse assumed care. Propofol @ 5 mcg and fentanyl @ 10 mcg. OG placed, ariza catheter placed and non violent restraints placed.
[2020-12-13 04:20] LABS: Amphetamines Screen Urine Positive (Negative); Barbiturates Screen Urine Negative (Negative); Benzodiazepines Screen Urine Negative (Negative); Cocaine Screen Urine Negative (Negative); Opiate Screen Urine Negative (Negative); PCP Screen Urine Negative (Negative); THC Screen Urine Negative (Negative)
[2020-12-13 04:42] LABS: Basophils # 0.1 10^3/uL (0.0-0.1); Basophils % 0.4 %; Eosinophils % 0.3 %; Hematocrit 42.9 % (42.0-52.0); Hemoglobin 14.7 g/dL (11.7-16.6); Lymphocytes # 2.2 10^3/uL (0.8-4.8); Lymphocytes % 13.9 %; Mean Corpuscular HGB Conc 34.3 g/dL (30.0-36.0); Mean Corpuscular Hemoglobin 31.3 pg (28.0-34.0); Mean Corpuscular Volume 91.5 fL (80-94); Monocytes % 12.7 %; Neutrophils # 11.44 10^3/uL (1.8-7.7); Neutrophils % 72.3 %; Nucleated Red Blood Cells % 0 %; Platelet Count 329 10^3/cmm (130-400); Red Blood Count 4.69 10^6/uL (4.1-5.3); Red Cell Distribution Width 11.9 % (12.1-15.1); White Blood Count 15.8 10^3/uL (4.0-10.0)
[2020-12-13 04:55] LABS: Alanine Aminotransferase 18 U/L (0-41); Alkaline Phosphatase 118 IU/L (40-130); Anion Gap 18.6 (5-19); Aspartate Amino Transferase 24 U/L (0-40); Blood Urea Nitrogen 17 mg/dL (6-20); Calcium 8.6 mg/dL (8.5-10.5); Carbon Dioxide 25 mmol/L (22-29); Chloride 95 mmol/L (98-107); Creatinine Clr Calc Pharmacy 82.2485; Globulin 3.5 g/dL (1.3-4.6); Glomerular Filtration Rate 90.8 mL/min (90-130); Glucose 94 mg/dL (65-115); Osmolality Calculated 281 mOsm/kg (285-295); Potassium 3.6 mmol/L (3.5-5.1); Salicylate 0.4 mg/dL (3-10); Sodium 135 mmol/L (136-145); Total Bilirubin 1.1 mg/dL (0.15-1.2); Total Protein 7.5 g/dL (6.6-8.7)
[2020-12-13 04:57] LABS: Acetaminophen < 5.0 ug/mL (10-30); Alcohol Level < 10 mg/dL (0-10)
[2020-12-13] MEDS: cefTRIAXone 1,000 MG in sodium chloride 0.9% (plus) 50 ML 100 MG IV (04:57)
[2020-12-13 05:28] LABS: ABG PCO2 43.2 mmHg (35-45); ABG PH Result 7.38 (7.35-7.45); Arterial Blood Gas Hematocrit 44.5 % (42-52); Base Excess ABG -0.2 mmol/L (-2.0-2.0); Blood Gas Allen Test Pos; Blood Gas Sample Site Radial, left; Blood Gas Sample Type Arterial; Blood Gas Tidal Volume 0.65; HCO3 ABG 25.3 mmol/L (22-26); Oxygen Device VENT
--- NOTE | 2020-12-13 05:32 | XRR_ITS ---
PROCEDURE INFORMATION: Exam: XR Chest Exam date and time: 12/13/2020 5:32 AM Age: 44 years old Clinical indication: Shortness of breath; Patient HX: Worsening secretions S/P intubation. ; Additional info: SOB TECHNIQUE: Imaging protocol: XR of the chest. Views: 1 view. COMPARISON: CR (CHEST, ) 12/13/2020 3:21 AM FINDINGS: Tubes, catheters and devices: An endotracheal tube is placed with its tip approximately 3 cm from the annmarie. An orogastric tube is placed with its tip at least in the proximal stomach. Lungs: Patchy opacities are again seen in the right lower hemithorax, findings that may represent a right basilar infiltrate and pneumonia. An underlying pulmonary nodularity cannot be entirely excluded however. There are some strandy opacities seen in the upper hemithoraces bilaterally and within the right infrahilar region possibly representing infiltrates as well Pleural spaces: Unremarkable. No pleural effusion. No pneumothorax. Heart/Mediastinum: Unremarkable. No cardiomegaly. Bones/joints: There is an expansile mixed lesion partially visualized within the midshaft of the right numerous. XR/XR chest 1V portable [id number] IMPRESSION: 1. Stable position of life support tubing. 2. Patchy opacity persists in the right lung base with some subtle strandy opacity seen in the upper hemithoraces and right infrahilar region possibly representing developing infiltrates as well. An underlying pulmonary nodularity in the right lung base cannot be entirely excluded as well.
[2020-12-13 05:50] LABS: SARS Covid-2 Antigen Negative (Negative)
[2020-12-13 06:17] LABS: ABG PCO2 39.8 mmHg (35-45); Arterial Blood Gas Hematocrit 45.3 % (42-52); Base Excess ABG 0.1 mmol/L (-2.0-2.0); Blood Gas Allen Test Pos; Blood Gas Operator Identificat RN; Blood Gas Sample Site Radial, right; Blood Gas Sample Type Arterial; HCO3 ABG 24.8 mmol/L (22-26); Oxygen Device VENT
[2020-12-13 06:17] LABS: NT Pro B Type Natriuretic Pept 43 pg/mL (0-125)
[2020-12-13 06:18] LABS: Blood Gas Tidal Volume 0.65
[2020-12-13] MEDS: azithromycin 500 MG in sodium chloride 0.9% 250 ML 250 MG IV (07:05)
[2020-12-13] MEDS: propofol 1,000 MG/100 ML INJ 13.61 MG IV (09:38)
[2020-12-13 15:19] LABS: ABG PCO2 44.6 mmHg (35-45); ABG PH Result 7.39 (7.35-7.45); Alveolar-Arterial Oxygen Gradi 63.9 mmHg (5-10); Arterial Blood Gas Hematocrit 46.4 % (42-52); Base Excess ABG 1.3 mmol/L (-2.0-2.0); Blood Gas Allen Test Pos; Blood Gas Operator Identificat glc; Blood Gas Sample Site Radial, left; Blood Gas Sample Type Arterial; Carboxyhemoglobin 0.5 %THgb (0.4-20.1); HCO3 ABG 26.8 mmol/L (22-26); HGB O2 Sat 97.9 % (95-100); Ionized Calcium Level - ABG 1.2 mmol/L (1.1-1.4); Methemoglobin 1.2 % (0.4-1.5); Oxygen Device NRB; Oxygen Saturation ABG 99.6; Potassium Level - ABG 3.4 mmol/L (3.5-5.0); Total Hemoglobin 15.2 g/dL (14-18)
--- NOTE | 2020-12-13 15:24 | PC.RESP ---
PT EXTUBATED AT 1400
[2020-12-13] MEDS: levofloxacin-dextrose 5 % 750 MG/150 ML PREMIX 100 MG IV (15:28)
[2020-12-13] MEDS: clindamycin 600 MG/50 ML PREMIX 100 MG IV (15:28)
[2020-12-13 16:09] LABS: Basophils # 0.1 10^3/uL (0.0-0.1); Basophils % 0.5 %; Eosinophils # 0.1 10^3/uL (0.0-0.8); Eosinophils % 0.3 %; Hematocrit 41.2 % (42.0-52.0); Hemoglobin 14.1 g/dL (11.7-16.6); Lymphocytes # 0.9 10^3/uL (0.8-4.8); Lymphocytes % 5.5 %; Mean Corpuscular HGB Conc 34.2 g/dL (30.0-36.0); Mean Corpuscular Hemoglobin 31.4 pg (28.0-34.0); Mean Corpuscular Volume 91.8 fL (80-94); Mean Platelet Volume 10.6 fL (7.4-10.4); Monocytes # 1.4 10^3/uL (0.2-0.9); Monocytes % 9.1 %; Neutrophils # 13.07 10^3/uL (1.8-7.7); Neutrophils % 84.2 %; Nucleated Red Blood Cells % 0 %; Platelet Count 242 10^3/cmm (130-400); Red Blood Count 4.49 10^6/uL (4.1-5.3); Red Cell Distribution Width 12.1 % (12.1-15.1); White Blood Count 15.5 10^3/uL (4.0-10.0)
--- NOTE | 2020-12-13 17:09 | XRR_ITS ---
PROCEDURE INFORMATION: Exam: XR Chest Exam date and time: 12/13/2020 5:09 PM Age: 44 years old Clinical indication: Cough and shortness of breath; Additional info: Dyspnea/cough TECHNIQUE: Imaging protocol: XR of the chest. Views: 1 view. COMPARISON: CR (CHEST, ) 12/13/2020 5:31 AM FINDINGS: Lungs: Stable right hilar to lower lobe mixed interstitial and airspace opacity suggestive of a pneumonic infiltrate, again pulmonary nodularity is not excluded. Pleural spaces: Unremarkable. No pleural effusion. No pneumothorax. Heart/Mediastinum: Unremarkable. No cardiomegaly. Bones/joints: Unremarkable. XR/XR chest 1V portable [id number] IMPRESSION: Stable right hilar to lower lobe mixed interstitial and airspace opacity suggestive of a pneumonic infiltrate, again pulmonary nodularity is not excluded.
--- NOTE | 2020-12-13 17:27 | P.CONIM_ITS ---
Providers/Reason for Consult Consulting Physican/Specialty*: Abraham Corrales MD, psychiatry Reason for Consult*: Reevaluation of 96-hour hold, status post methamphetamine induced psychosis Psych Consult HPI History of Present Illness Marty Islas Jr is a 44 year old male who presented to the ED, brought by police, [place]. It was discovered that he had a methamphetamine induced psychosis, and some combativeness. He was given ketamine which caused laryngospasm requiring intubation. He has now been extubated, and is obtunded due to his medical issues. He no longer has active psychiatric issues. He does not respond to loud request to open his eyes, etc. He has not been combative for a number of hours. PFSH NPU PFSH: Medical History (Updated 12/13/20 @ 05:41 by Jeremy Mercer MD) Polysubstance dependence in early, early partial, sustained full, or sustained partial remission Tobacco abuse Family History Family/Other Psychiatric illness His dad's brothers (2) had problems with methamphetamine also. Social History Smoking and tobacco status: current every day smoker Last substance use date: 07/21/19 Mental Status Exam MSE Comments: I met with the patient, wearing full PPE, and emergency room 11, accompanied by the respiratory therapist. She reports that he has not opened his eyes or spoken to her. Dr. Clark says that the patient did briefly open his eyes and look around earlier, after extubation, but did not have the same paranoid expression on his face nor did he respond as if trying to alba off threats. He was calm and cooperative at that point. He is now obtunded, and unable to cooperate. There is no psychosis noted. Vitals/I&O/Wt Last Vital Signs Pulse 111 H 12/13/20 16:22 Resp 24 H 12/13/20 16:22 BP 107/73 12/13/20 16:00 Pulse Ox 96 12/13/20 16:22 12/13/20 12/13/20 12/13/20 06:59 14:59 22:59 Intake Total 4.32 / 4.32 411.875 / 411.875 Balance 4.32 / 4.32 411.875 / 411.875 Weight last 48 hrs Weight 56.699 kg Physical Exam Urinary Catheter Management^: Bonds: Cath Placed During This Visit: yes Reason for Continuing Indwelling Catheter: Accurate Measurement of Urinary Output in Critically Ill Patients Urinary Catheter Date of Insertion: 12/13/20 Urinary Catheter Time of Insertion: 04:07 Data NPU Micro: Micro: Microbiology 12/13/20 16:00 Blood Culture - Pr eliminary Blood SPECIMEN [facility] 12/13/20 15:57 Blood Culture - Pr eliminary Blood SPECIMEN [facility] 12/13/20 04:25 Blood Culture - Pr eliminary Blood SPECIMEN [facility] 12/13/20 04:58 Blood Culture - Pr eliminary Blood SPECIMEN [facility] Microbiology 12/13/20 16:00 Blood Blood Culture - Preliminary SPECIMEN COLLECTED 12/13/20 15:57 Blood Blood Culture - Preliminary SPECIMEN COLLECTED 12/13/20 04:25 Blood Blood Culture - Preliminary SPECIMEN COLLECTED 12/13/20 04:58 Blood Blood Culture - Preliminary SPECIMEN COLLECTED A&P Additional A&P Information The patient is a 44-year-old man who has had medical complications of his methamphetamine use. While earlier yesterday he was in a state of meth amphetamine induced psychosis, he is no longer in that same state. He requires no psychiatric intervention at this time. Involuntary Hold Information 96 Hour Hold: 96 Hour Involuntary Admission: No Attestations NPU Medical Necessity Statement*: The patient no longer requires 96-hour hold. He is not exhibiting psychiatric symptoms. He would not be able to function on an inpatient psychiatric unit. He requires medical care. The ED providers will provide attestation to medical necessity of current treatment. Coding Level of Care Code Acute Tamping Machine Operator for Gaudencio Ng
[2020-12-14] VITALS (16 sets, daily range): BP systolic 92–113; BP diastolic 58–89; PULSE 55–98; RESP 12–40; TEMP 36.7–37.2; O2SAT 90–100
[2020-12-14 01:26] LABS: ABG PCO2 44.3 mmHg (35-45); ABG PH Result 7.41 (7.35-7.45); Arterial Blood Gas Hematocrit 48.6 % (42-52); Base Excess ABG 2.5 mmol/L (-2.0-2.0); Blood Gas Allen Test Pos; Blood Gas Sample Type Arterial; HCO3 ABG 27.8 mmol/L (22-26)
[2020-12-14 01:29] LABS: Blood Gas Sample Site Radial, left; Oxygen Device NC
--- NOTE | 2020-12-14 04:32 | PC.NURSE ---
Orders received from Dr. Madera to discontinue patient's heated high flow oxygen, as patient has been removing it the last few times nurse was in the room, and patient's oxygen saturation stayed above 90%. Oxygen discontinued at this time.
--- NOTE | 2020-12-14 06:37 | PM.HP ---
Providers/Chief Complaint Admitting Physician: Shasta Madera Chief Complaint: HALLUCINATIONS History of Present Illness Marty Islas Jr is a 44 year old male who presented to the ER with methamphatamine induced pychosis over 24 hour prior during which time he was noted to be severely agitated and comabative. Patient was given Ketamine. Shortly after was noted to have respiratory distress due to laryngospasm. This was likely due to adverse ketamine reaction. Patient was intubated and placed on mechanical ventilation. Due to low bed avaibility patient remained in ER. He was eventually extubated on 12/13 afternoon to [facility]. At the time of my eval patient had pull his oxygen off. He was however noted to have oxygen saturation of >95% on RA. He was admitted to medicine for further workup. Review of Systems General: Reports: ROS unobtainable due to medical condition Medications/Allergies Home Medications Medication Instructions Recorded Confirmed Last Taken Type Unable to Assess 12/13/20 12/13/20 Unknown History Allergies Allergy/AdvReac Type Severity Reaction Status Date / Time penicillin V Allergy Unknown Verified 07/25/19 15:45 Penicillins Allergy Unknown Verified 07/25/19 15:45 PFSH Acute PFSH: Medical History (Updated 12/13/20 @ 05:41 by Jeremy Mercer MD) Polysubstance dependence in early, early partial, sustained full, or sustained partial remission Tobacco abuse Family History Family/Other Psychiatric illness His dad's brothers (2) had problems with methamphetamine also. Social History Smoking and tobacco status: current every day smoker Last substance use date: 07/21/19 Vitals/I&O/Wt Last Vital Signs Pulse 93 12/14/20 06:04 Resp 33 H 12/14/20 06:04 BP 95/60 12/14/20 06:04 Pulse Ox 92 12/14/20 06:04 12/13/20 12/13/20 12/14/20 14:59 22:59 06:59 Intake Total 411.875 / 411.875 200 / 611.875 Balance 411.875 / 411.875 200 / 611.875 Weight last 48 hrs Weight 56.699 kg Physical Exam Narrative: EXAM NARRATIVE: drowsy non-labored respiration NSR Soft, NT,ND Ext - no edema Urinary Catheter Management^: Bonds: Cath Placed During This Visit: yes Reason for Continuing Indwelling Catheter: Other Urinary Catheter Date of Insertion: 12/13/20 Urinary Catheter Time of Insertion: 04:07 Data : 12/13/20 16:00 12/13/20 03:20 Micro: Microbiology 12/13/20 04:25 Blood Culture - Preliminary Blood NEGATIVE TO DATE 12/13/20 04:58 Blood Culture - Preliminary Blood NEGATIVE TO DATE 12/13/20 16:00 Blood Culture - Preliminary Blood SPECIMEN COLLECTED 12/13/20 15:57 Blood Culture - Preliminary Blood SPECIMEN COLLECTED A&P Assessment and plan (1) Drug-induced psychotic disorder: Psych consult withdrawal Status: Acute Qualifiers: Complication of substance-induced condition: with delusions Qualified Code(s): F19.950 - Other psychoactive substance use, unspecified with psychoactive substance-induced psychotic disorder with delusions (2) Respiratory failure: likey due to laryngospasm due to ketamine S/p extubation Currently on RA can check ambulatory o2 in am Status: Acute Attestations Medical Necessity Statement*: Will require > 2 midnight stay in hospital for eval and treatment. Coding Level of Care Code Acute Patient Service Representative for Gaudencio Ng Diagnoses Drug-induced psychotic disorder F19.950 Complication of substance-induced condition: with delusions Respiratory failure J96.90
--- NOTE | 2020-12-14 12:51 | PM.DCS ---
Discharge Providers Date of Admission: 12/14/20 02:52 Date of Discharge: December 14, 2020 Attending Provider at Admission: Shasta Madera Attending Provider at Discharge: Cedric Lozada MD Diagnoses at Discharge Discharge Diagnosis (1) Drug-induced psychotic disorder: Status: Acute Qualifiers: Complication of substance-induced condition: with delusions Qualified Code(s): F19.950 - Other psychoactive substance use, unspecified with psychoactive substance-induced psychotic disorder with delusions (2) Respiratory failure: Status: Acute Reason for Visit Reason for Visit: HALLUCINATIONS Hospital Course Hospital Course Marty Islas Jr is a 44 year old male who presented to the ER with methamphatamine induced pychosis over 24 hour prior during which time he was noted to be severely agitated and comabative. Patient was given Ketamine. Shortly after was noted to have respiratory distress due to laryngospasm. This was likely due to adverse ketamine reaction. Patient was intubated and placed on mechanical ventilation. Due to low bed avaibility patient remained in ER. He was eventually extubated on 12/13 afternoon to [facility]. At the time of my eval patient had pull his oxygen off. He was however noted to have oxygen saturation of >95% on RA. He was admitted to medicine for further workup. Patient was admitted to the hospital for further monitoring. Patient continued to remain on room air saturating 94%. He was able to ambulate without any difficulty. Patient has been tolerating his diet well. He has been discharged in hemodynamically stable condition advised to take doxycycline Levaquin for next 7 days along with famotidine. He was counseled in detail to avoid any further recreational drugs and tobacco. Patient denied any homicidal and suicidal ideation. He is also advised to follow-up with his primary care provider within next 1 week. Physical Exam Narrative: EXAM NARRATIVE: General: No acute distress, AO x3 HEENT: PERRLA, pupils bilaterally equal and reactive Chest: Normal vesicular breath sounds, no added sounds, equal good air entry bilaterally CVS: S1-S2 regular, no murmurs, no tachycardia, no gallops, no rubs Abdomen: Soft, nontender, no organomegaly, bowel sounds present Neuro: No focal deficits, no facial deformity, AO x3, power 5/5 in all limbs Urinary Catheter Management^: Bonds: Cath Placed During This Visit: yes Reason for Continuing Indwelling Catheter: Other Urinary Catheter Date of Insertion: 12/13/20 Urinary Catheter Time of Insertion: 04:07 Discharge Data Data Completed and Pending: Completed Studies During Hospitalization Category Date Time Status XR chest 1V rogelio ble [id number] Stat Exams 12/13/20 03:24 Completed XR chest 1V rogelio ble [id number] Stat Exams 12/13/20 05:32 Completed XR chest 1V rogelio ble [id number] Stat Exams 12/13/20 17:09 Completed Pending at discharge Category Date Time Status Blood Culture Sta t Lab 12/13/20 04:25 Results Blood Culture Sta t Lab 12/13/20 16:00 Results Complete Blood Co unt w/Auto AM LABS Lab 12/15/20 04:00 Ordered Comprehensive Met abolic Panel AM LA BS Lab 12/15/20 04:00 Ordered Magnesium AM LABS Lab 12/15/20 04:00 Ordered [facility] SARS-CoV-2 RNA Routine Lab 12/13/20 16:10 Received Labs from last 24 hours 12/14/20 12/13/20 12/13/20 01:05 16:10 16:00 WBC 15.5 H RBC 4.49 Hgb 14.1 Hct 41.2 L MCV 91.8 MCH 31.4 MCHC 34.2 RDW 12.1 Plt Count 242 MPV 10.6 H Neut % (Auto) 84.2 Lymph % (Auto) 5.5 Gulf % (Auto) 9.1 Eos % (Auto) 0.3 Baso % (Auto) 0.5 Neut # (Auto) 13.07 H Lymph # (Auto) 0.9 Gulf # (Auto) 1.4 H Eos # (Auto) 0.1 Baso # (Auto) 0.1 Nucleated RBC % (a uto) 0 Nucleated RBCs # 0.0 Specimen Type Arterial Sample Site Radial, left ABG pH 7.41 ABG pCO2 44.3 ABG pO2 190.0 H ABG HCO3 27.8 H ABG O2 Saturation ABG Base Excess 2.5 H Srinivas Test Pos A-a O2 Gradient Hematocrit 48.6 Hgb O2 Saturation Carboxyhemoglobin Methemoglobin Total Hemoglobin Sodium Potassium Glucose Ionized Calcium O2 Delivery Device Nc O2 Liters/Min 45.0 FiO2 62.0 Fisher Diver Net ID [email or web address] SARS-CoV-2 RNA (RT -PCR) Pending 12/13/20 15:11 WBC RBC Hgb Hct MCV MCH MCHC RDW Plt Count MPV Neut % (Auto) Lymph % (Auto) Gulf % (Auto) Eos % (Auto) Baso % (Auto) Neut # (Auto) Lymph # (Auto) Gulf # (Auto) Eos # (Auto) Baso # (Auto) Nucleated RBC % (a uto) Nucleated RBCs # Specimen Type Arterial Sample Site Radial, left ABG pH 7.39 ABG pCO2 44.6 ABG pO2 165.0 H ABG HCO3 26.8 H ABG O2 Saturation 99.6 ABG Base Excess 1.3 Srinivas Test Pos A-a O2 Gradient 63.9 H Hematocrit 46.4 Hgb O2 Saturation 97.9 Carboxyhemoglobin 0.5 Methemoglobin 1.2 Total Hemoglobin 15.2 Sodium 139.0 Potassium 3.4 L Glucose 79.0 Ionized Calcium 1.2 O2 Delivery Device Nrb O2 Liters/Min 15.0 FiO2 100.0 Fisher Diver Net ID glc SARS-CoV-2 RNA (RT -PCR) Addt'l Data from Hospital Stay: Laboratory Results WBC 15.5 10^3/uL (4.0 -10.0) H 12/13/20 16:00 RBC 4.49 10^6/uL (4.1 -5.3) 12/13/20 16:00 Hgb 14.1 g/dL (11.7-1 6.6) 12/13/20 16:00 Hct 41.2 % (42.0-52.0 ) L 12/13/20 16:00 MCV 91.8 fL (80-94) 12/13/20 16:00 MCH 31.4 pg (28.0-34. 0) 12/13/20 16:00 MCHC 34.2 g/dL (30.0-3 6.0) 12/13/20 16:00 RDW 12.1 % (12.1-15.1 ) 12/13/20 16:00 Plt Count 242 10^3/cmm (130 -400) 12/13/20 16:00 MPV 10.6 fL (7.4-10.4 ) H 12/13/20 16:00 Neut % (Auto) 84.2 % 12/13/20 16:00 Lymph % (Auto) 5.5 % 12/13/20 16:00 Gulf % (Auto) 9.1 % 12/13/20 16:00 Eos % (Auto) 0.3 % 12/13/20 16:00 Baso % (Auto) 0.5 % 12/13/20 16:00 Neut # (Auto) 13.07 10^3/uL (1. 8-7.7) H 12/13/20 16:00 Lymph # (Auto) 0.9 10^3/uL (0.8- 4.8) 12/13/20 16:00 Gulf # (Auto) 1.4 10^3/uL (0.2- 0.9) H 12/13/20 16:00 Eos # (Auto) 0.1 10^3/uL (0.0- 0.8) 12/13/20 16:00 Baso # (Auto) 0.1 10^3/uL (0.0- 0.1) 12/13/20 16:00 Nucleated RBC % (a uto) 0 % 12/13/20 16:00 Nucleated RBCs # 0.0 /100WBC 12/13/20 16:00 Specimen Type Arterial 12/14/20 01:05 Sample Site Radial, left 12/14/20 01:05 ABG pH 7.41 (7.35-7.45) 12/14/20 01:05 ABG pCO2 44.3 mmHg (35-45) 12/14/20 01:05 ABG pO2 190.0 mmHg (80.0- 100.0) H 12/14/20 01:05 ABG HCO3 27.8 mmol/L (22-2 6) H 12/14/20 01:05 ABG O2 Saturation 99.6 12/13/20 15:11 ABG Base Excess 2.5 mmol/L (-2.0- 2.0) H 12/14/20 01:05 Srinivas Test Pos 12/14/20 01:05 A-a O2 Gradient 63.9 mmHg (5-10) H 12/13/20 15:11 Hematocrit 48.6 % (42-52) 12/14/20 01:05 Hgb O2 Saturation 97.9 % (95-100) 12/13/20 15:11 Carboxyhemoglobin 0.5 %THgb (0.4-20 .1) 12/13/20 15:11 Methemoglobin 1.2 % (0.4-1.5) 12/13/20 15:11 Total Hemoglobin 15.2 g/dL (14-18) 12/13/20 15:11 Sodium 139.0 mmol/L (131 -143) 12/13/20 15:11 Potassium 3.4 mmol/L (3.5-5 .0) L 12/13/20 15:11 Glucose 79.0 mg/dL (70-11 5) 12/13/20 15:11 Ionized Calcium 1.2 mmol/L (1.1-1 .4) 12/13/20 15:11 O2 Delivery Device Nc 12/14/20 01:05 O2 Liters/Min 45.0 % 12/14/20 01:05 FiO2 62.0 % 12/14/20 01:05 Tidal Volume 0.65 12/13/20 05:55 PEEP 10.0 cmH20 12/13/20 05:55 Fisher Diver Net ID [email or web address] 12/14/20 01:05 Sodium 135 mmol/L (136-1 45) L 12/13/20 03:20 Potassium 3.6 mmol/L (3.5-5 .1) 12/13/20 03:20 Chloride 95 mmol/L (98-107 ) L 12/13/20 03:20 Carbon Dioxide 25 mmol/L (22-29) 12/13/20 03:20 Anion Gap 18.6 (5-19) 12/13/20 03:20 BUN 17 mg/dL (6-20) 12/13/20 03:20 Creatinine 0.9 mg/dL (0.7-1. 2) 12/13/20 03:20 GFR Calculation 90.8 mL/min (90-1 30) 12/13/20 03:20 Glucose 94 mg/dL (65-115) 12/13/20 03:20 Calculated Osmolal ity 281 mOsm/kg (285- 295) L 12/13/20 03:20 Calcium 8.6 mg/dL (8.5-10 .5) 12/13/20 03:20 Total Bilirubin 1.1 mg/dL (0.15-1 .2) 12/13/20 03:20 AST 24 U/L (0-40) 12/13/20 03:20 ALT 18 U/L (0-41) 12/13/20 03:20 Alkaline Phosphata se 118 IU/L (40-130) 12/13/20 03:20 NT-Pro-B Natriuret Pep 43 pg/mL (0-125) 12/13/20 03:20 Total Protein 7.5 g/dL (6.6-8.7 ) 12/13/20 03:20 Albumin 4.0 g/dL (3.5-5.2 ) 12/13/20 03:20 Globulin 3.5 g/dL (1.3-4.6 ) 12/13/20 03:20 Salicylates 0.4 mg/dL (3-10) L 12/13/20 03:20 Urine Opiates Scre en Negative ng/mL (N egative) 12/13/20 03:50 Acetaminophen < 5.0 ug/mL (10-3 0) L 12/13/20 03:20 Ur Barbiturates Sc reen Negative ng/mL (N egative) 12/13/20 03:50 Ur Phencyclidine S crn Negative ng/mL (N egative) 12/13/20 03:50 Ur Amphetamines Sc reen Positive ng/mL (N egative) H 12/13/20 03:50 U Benzodiazepines Scrn Negative ng/mL (N egative) 12/13/20 03:50 Urine Cocaine Scre en Negative ng/mL (N egative) 12/13/20 03:50 U Marijuana (THC) Screen Negative ng/mL (N egative) 12/13/20 03:50 Ethyl Alcohol < 10 mg/dL (0-10) 12/13/20 03:20 SARS-CoV-2 Ag (Rap id) Negative (Negati ve) 12/13/20 05:15 Impressions Chest X-Ray 12/13/20 17:09 IMPRESSION: Stable right hilar to lower lobe mixed interstitial and airspace opacity suggestive of a pneumonic infiltrate, again pulmonary nodularity is not excluded. Microbiology 12/13/20 04:25 Blood Blood Culture - Preliminary NEGATIVE TO DATE 12/13/20 04:58 Blood Blood Culture - Preliminary NEGATIVE TO DATE 12/13/20 16:00 Blood Blood Culture - Preliminary SPECIMEN COLLECTED 12/13/20 15:57 Blood Blood Culture - Preliminary SPECIMEN COLLECTED Vitals: Last Vital Signs Temp 99 F 12/14/20 09:07 Pulse 55 L 12/14/20 11:05 Resp 16 12/14/20 11:05 BP 99/58 12/14/20 10:42 Pulse Ox 94 12/14/20 11:05 Discharge Plan Discharge Patient Disposition: Home Condition: Stable Prescriptions: New doxycycline hyclate 100 mg tablet,delayed release (DR/EC) 100 mg PO BID 7 Days Qty: 14 RF: 0 levofloxacin 500 mg tablet 500 mg PO Q24H 7 Days Qty: 7 RF: 0 famotidine 20 mg tablet 20 mg PO BID Qty: 14 RF: 0 No Action Unable to Assess RF: 0 Discharge Orders: Discharge Order (Routine); Ordered 12/14/20 Ordered By: Cedric Lozada Discharge Diet: Advance as tolerated and Regular Discharge Activity: Resume usual activity Patient Instructions: Opioid Safety Activity Restrictions/Additional Instructions: Follow with a primary care provider within next 1 week. You will get doxycycline Levaquin which is the antibiotics for next 7 days. Please try to avoid using recreational drugs as much as possible. Please avoid smoking as much as possible. Discharge Attestations Time Spent in Discharge Care*: greater than 30 min Specific Discharge Activities: educating patient, discussing with pcp/other providers, discussing with case checker/social workers/dc planners, documenting/other paperwork and evaluating patient/reviewing data Status at Discharge: Cognitive status at discharge: cognitively intact, Behavioral status at discharge: cooperative, Functional status at discharge: independent ambulation Overall status at discharge: patient is progressing back to baseline Quality Metrics Clinical Quality Measures During this hospital stay, did patient experience: None Coding Level of Care Code Acute Chg FW DC note Diagnoses Drug-induced psychotic disorder F19.950 Complication of substance-induced condition: with delusions Respiratory failure J96.90
[2020-12-15 02:06] LABS: Quest SARS-CoV-2 RNA NOT DETECTED (NOT DETECTED)
== END 2020-12-14 13:31 | disposition home or self-care (01) | DRG 896 ==
LOC: ER 18:45 → ER IP 12-14 03:30
PROVIDERS: Family Medicine; Admitting Provider Hospitalist; Emergency Provider Emergency Medicine; Visit Provider Student in an Organized Health Care Education/Training Program
DX: F15.950 Other stimulant use, unspecified with stimulant-induced psychotic disorder with delusions (principal); J96.90 Respiratory failure, unspecified, unspecified whether with hypoxia or hypercapnia; R45.851 Suicidal ideations; F17.210 Nicotine dependence, cigarettes, uncomplicated; Z81.3 Family history of other psychoactive substance abuse and dependence; J38.5 Laryngeal spasm; T41.295A Adverse effect of other general anesthetics, initial encounter
CPT/HCPCS: 36600; 51702; 71045; 80051; 80053; 80306; 80307; 82330; 82803; 82805; 83880; 85025; 87040; 87426; 87635; 93005; 94002; 94799; 96365; 96367; 99291; 99292; J0456; J0696; J1630; J1956; J2060; J2704; J3010; J3490; J7050

== ENCOUNTER 2021-01-18 19:56 | Inpatient (IN) | payer SELFPAY ==
[2021-01-18 20:06] VITALS: BP 140/87; PULSE 130; RESP 20; TEMP 37.1; O2SAT 96; BMI 19.5
[2021-01-18 21:09] LABS: Basophils # 0.1 10^3/uL (0.0-0.1); Basophils % 0.7 %; Eosinophils # 0.1 10^3/uL (0.0-0.8); Eosinophils % 1.4 %; Hematocrit 41.2 % (42.0-52.0); Hemoglobin 14.6 g/dL (11.7-16.6); Lymphocytes # 1.7 10^3/uL (0.8-4.8); Lymphocytes % 20.8 %; Mean Corpuscular HGB Conc 35.4 g/dL (30.0-36.0); Mean Corpuscular Hemoglobin 31.3 pg (28.0-34.0); Mean Corpuscular Volume 88.4 fl (80-94); Mean Platelet Volume 9.9 fL (7.4-10.4); Monocytes # 0.7 10^3/uL (0.2-0.9); Neutrophils # 5.74 10^3/uL (1.8-7.7); Nucleated Red Blood Cells % 0 %; Platelet Count 272 10^3/cmm (130-400); Red Blood Count 4.66 10^6/uL (4.1-5.3); Red Cell Distribution Width 12.8 % (12.1-15.1); White Blood Count 8.3 10^3/uL (4.0-10.0)
[2021-01-18 21:26] LABS: Amphetamines Screen Urine Positive (Negative); Barbiturates Screen Urine Negative (Negative); Benzodiazepines Screen Urine Negative (Negative); Cocaine Screen Urine Negative (Negative); Opiate Screen Urine Negative (Negative); PCP Screen Urine Negative (Negative); THC Screen Urine Negative (Negative)
[2021-01-18 21:26] LABS: Anion Gap 16.2 (5-19); Blood Urea Nitrogen 15 mg/dL (6-20); Calcium 8.8 mg/dL (8.5-10.5); Carbon Dioxide 24 mmol/L (22-29); Chloride 103 mmol/L (98-107); Glomerular Filtration Rate 90.4 mL/min (90-130); Glucose 120 mg/dL (65-115); Osmolality Calculated 292 mOsm/kg (285-295); Potassium 3.2 mmol/L (3.5-5.1); Sodium 140 mmol/L (136-145)
[2021-01-18 21:28] LABS: Acetaminophen < 5.0 ug/mL (10-30); Salicylate < 0.3 mg/dL (3-10)
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
[2021-01-18] MEDS: sodium chloride 0.9% 1,000 ML 999 ML IV (22:38)
[2021-01-18 22:40] VITALS: BP 118/71; PULSE 103; RESP 18; TEMP 36.7; O2SAT 96
[2021-01-18 23:44] VITALS: PULSE 97; RESP 18; O2SAT 99
[2021-01-19 00:18] VITALS: BP 110/73; PULSE 91; RESP 18; TEMP 36.6; O2SAT 100
[2021-01-19 00:35] VITALS: BMI 19.5
[2021-01-19 06:00] VITALS: BP 109/68; PULSE 82; RESP 17; TEMP 36.7; O2SAT 97; BMI 19.5
[2021-01-19] MEDS: nicotine 21 mg Patch 1 PATCH TRANSDERMA (09:01)
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
[2021-01-19 13:53] VITALS: BP 132/75; PULSE 82; RESP 14; TEMP 37.3; O2SAT 98
[2021-01-19] MEDS: nicotine 2 mg Gum BUCCAL (17:48)
[2021-01-19 20:43] VITALS: BP 107/70; PULSE 73; RESP 15; TEMP 37.2; O2SAT 97
[2021-01-20 06:00] VITALS: BP 116/76; PULSE 64; RESP 17; TEMP 36.6; O2SAT 97
[2021-01-20 14:00] VITALS: BP 103/61; PULSE 78; RESP 16; TEMP 36.3; O2SAT 99
--- NOTE | 2021-01-20 17:51 | PM.NPN ---
Subjective NPU Subjective: Interval history: Marty presents today continuing to be isolative to his room mostly and not engaging. I invited him to work with the treatment team to look at possible follow-up options that would help him curtail his use and advance his recovery. We discussed the importance of him connecting to the process and that we would discuss his plans tomorrow. We agreed that if he was not moving out of his ambivalence towards some kind of treatment goal that we would begin discussion about discharge tomorrow. Mental Status Exam MSE Comments: This is an underweight, white male, with poor dentition, in hospital scrubs, with limited grooming, and adequate eye contact. No abnormal movements except for mild psychomotor retardation. Cooperative with exam in no acute distress. Speech was normal rate and volume. Mood described as okay; affect slightly subdued. Thought process, organized. Thought content: patient denied any suicidal or homicidal ideation, there were no delusions reported or noted, patient denied any auditory or visual hallucinations. Attention, concentration, and memory appear intact but were not formally tested. He is alert and oriented times three. Insight and judgment are limited and impulse control impaired. Vitals/I&O/Wt Last Vital Signs Temp 97.9 F 01/20/21 20:12 Pulse 71 01/20/21 20:12 Resp 15 01/20/21 20:12 BP 106/65 01/20/21 20:12 Pulse Ox 97 01/20/21 20:12 Weight last 48 hrs Weight 63.503 kg Data NPU : 01/18/21 20:56 01/18/21 20:56 A&P Additional A&P Information (1) Psychosis: (2) Homicidal ideations: (3) Drug-induced psychotic disorder: (4) Tobacco abuse: (5) Drug overdose: (6) Intentional overdose of drug in tablet form: (7) Altered mental status associated with intoxication: (8) Parent-child relational problem: (9) Methamphetamine dependence: (10) Major depressive disorder, recurrent episode with melancholic features: This is a 45-year-old, white male, with a long history of mental health and addiction issues, with previous hospitalizations, some of which were mostly driven from mental health, others by addiction and likely drug-induced psychosis, with methamphetamine, who presents today putting his relapse off on his significant other, but then later reporting that he is interested in re-engaging in treatment and maybe even considering medications. RECOMMENDATION AND PLAN: 1. Continue current medication. Will work with him to consider whether there are appropriate medications including Naltrexone, which will be appropriate. 2. Encourage individual, group, and milieu therapy. 3. Continue q-15 minute checks for safety. 4. Encourage sober living treatment after discharge at the highest level of care to which he is willing to commit. Involuntary Hold Information 96 Hour Hold: 96 Hour Involuntary Admission: No Attestations NPU Medical Necessity Statement*: Inpatient hospitalization is medically necessary and the clinically appropriate intervention, at this time. We will monitor medications and make changes as indicated. Likely length of stay is 1-3 days Coding Level of Care Code Acute Welding Equipment Repairer for Gaudencio Ng
[2021-01-20 20:12] VITALS: BP 106/65; PULSE 71; RESP 15; TEMP 36.6; O2SAT 97
[2021-01-21 06:00] VITALS: BP 111/69; PULSE 81; RESP 17; TEMP 36.6; O2SAT 98
[2021-01-21] MEDS: nicotine 21 mg Patch 1 PATCH TRANSDERMA (09:50)
[2021-01-21] MEDS: nicotine 2 mg Gum BUCCAL (12:40)
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
--- NOTE | 2021-01-21 15:41 | PM.NPN ---
Vitals/I&O/Wt Last Vital Signs Temp 97.8 F 01/21/21 06:00 Pulse 81 01/21/21 06:00 Resp 17 01/21/21 06:00 BP 111/69 01/21/21 06:00 Pulse Ox 98 01/21/21 06:00 Data NPU : 01/18/21 20:56 01/18/21 20:56 Involuntary Hold Information 96 Hour Hold: 96 Hour Involuntary Admission: No Coding Level of Care Code Acute Mushroom Packer for Gaudencio Ng
[2021-01-21 16:01] VITALS: BP 111/69; PULSE 81; RESP 17; TEMP 36.6; O2SAT 98
[2021-01-21 17:35] LABS: HIV 1 & 2 Antibody Non-Reactive (Non-Reactiv); HIV 1 & 2 Antigen Non-Reactive (Non-Reactiv)
--- NOTE | 2021-01-24 07:59 | PC.RESP ---
SMOKING CESSATION INFORMATION SENT TO PATIENT.
== END 2021-01-21 16:04 | disposition home or self-care (01) | DRG 897 ==
LOC: ER 22:25 → NP 01-19 01:37
PROVIDERS: Admitting Provider Psychiatry & Neurology Psychiatry; Emergency Provider Emergency Medicine; Visit Provider Psychiatry & Neurology Psychiatry
DX: F15.959 Other stimulant use, unspecified with stimulant-induced psychotic disorder, unspecified (principal); R45.851 Suicidal ideations; Z68.1 Body mass index [BMI] 19.9 or less, adult; F33.8 Other recurrent depressive disorders; R45.850 Homicidal ideations; R63.6 Underweight; F17.210 Nicotine dependence, cigarettes, uncomplicated; Z81.8 Family history of other mental and behavioral disorders; Z81.1 Family history of alcohol abuse and dependence; Z62.820 Parent-biological child conflict
CPT/HCPCS: 80048; 80306; 80307; 85025; 87806; 96360; 99285; J7030